=== PATIENT | male | born 1980 | race Caucasian/White ===

== ENCOUNTER 2020-01-26 11:10 | Day surgery (SDC) | payer MEDICARE, OTHER ==
[~2020-01-26 11:10] MED LIST: HYDACE5 PO; PRED20 PO
[2020-01-26] MEDS ORDERED: Prinivil10 MG PO (11:43)
[2020-01-26] MEDS ORDERED: RENVELA800 MG PO (11:44)
[2020-01-26] MEDS ORDERED: CARV25 PO (11:44)
--- NOTE | 2020-01-26 14:55 | NUR ---
HTN PT BP ELEVATED DURING VISIT. DR. GLEZ CALLED & NOTIFIED. CLONIDINE 0.2 MG ORDERED A ONE TIME DOSE. LABS ALSO ORDERED PER DR. GLEZ.
--- NOTE | 2020-01-26 16:26 | NUR ---
HTN UPDATE DR. GLEZ NOTIFIED THAT PT BP REMAINS ELEVATED. ASKED THIS RN TO ENCOURAGE PT TO MAKE HIS DIALYSIS APPOINTMENT TOMORROW AND EDUCATE HIM ON THE EFFECTS OF FLUID OVERLOAD.
--- NOTE | 2020-01-26 17:26 | NUR ---
DYSPNEA W/EXERTION PT C/O DYSPNEA WITH EXERTION AND STATES THAT HE DOES NOT HAVE DIALYSIS TOMORROW AND WILL BE UNABLE TO COME IN. PT ASKED IF HE FELT LIKE HE NEEDED TO STAY OVERNIGHT AN INPATIENT. PT RESPONDED "NO". PT THEN ASKED IF IT WAS POSSIBLE TO BE DIALIZED TONIGHT WHILE HE WAS HERE. THIS RN EXPLAINED THAT HE MUST BE AN INPATIENT TO DO THAT. PT THEN ASKED ABOUT O2 AT NIGHT. THIS RN ASKED PT TO ELABORATE, PT STATED THAT "IT IS HARD TO SLEEP LYING DOWN". THIS RN AGAIN ASKED THE PT IF HE FELT THAT HE NEED TO STAY OVERNIGHT. PT REPLIED STATING "ON NO, I WILL NOT STAY OVERNIGHT". THIS RN EDUCATED PT TO CALL 911 OR RETURN TO ER IF HIS BREATHING GETS WORSE. PT STATED "I WILL NOT COME INTO THE ER". PT THEN EDUCATED ON THE IMPORTANCE OF SEEKING HELP IF UNABLE TO BREATHE AND THE IMPORTANCE OF GOING TO DIALYSIS ON THURSDAY. DR. GLEZ NOTIFIED AND ORDERED 60MG OF LASIX.
--- NOTE | 2020-01-26 18:35 | NUR ---
PT DISCHARGED. PT VOIDED PRIOR TO DC AFTER LASIX INJECTION. PT STATES BREATHING IS IMPROVED. ESCORTED OUT BY AIDE.
== END 2020-01-26 18:35 | disposition home or self-care (01) ==
LOC: TRN 11:10 → MEDS 18:35 → EDSTATUS 01-27 13:33
PROVIDERS: Internal Medicine
PROC: 30233N1 Transfusion of Nonautologous Red Blood Cells into Peripheral Vein, Percutaneous Approach (ICD-10-PCS; principal; 2020-01-26)
DX: I12.0 Hypertensive chronic kidney disease with stage 5 chronic kidney disease or end stage renal disease (principal); N18.6 End stage renal disease; D63.1 Anemia in chronic kidney disease; A50.02 Early congenital syphilitic osteochondropathy; F17.220 Nicotine dependence, chewing tobacco, uncomplicated; Z99.2 Dependence on renal dialysis; Z79.899 Other long term (current) drug therapy
CPT/HCPCS: 36415; 36430; 82607; 82746; 86850; 86900; 86901; 86923; J1940; J7050; P9016

== ENCOUNTER 2020-02-14 00:40 | Inpatient (IN) | payer MEDICARE, OTHER ==
[~2020-02-14] VITALS: Ht 182.9 cm; Wt 74.7 kg
[~2020-02-14 00:40] MED LIST changes: +CARV25 PO; +Prinivil10 MG PO; +RENVELA800 MG PO
[2020-02-14 01:18] LABS: BASOPHILS ABSOLUTE AUTO 0.06 K/mm3 (0.00-0.23); BASOPHILS PERCENT AUTO 0 % (0-2); EOSINOPHILS ABSOLUTE AUTO 0.13 K/mm3 (0.00-0.68); EOSINOPHILS PERCENT AUTO 1 % (0-6); Hematocrit 30.5 % (37.0-53.0); Hemoglobin 9.7 g/dL (13.5-17.5); IMMATURE GRAN ABSOLUTE AUTO 0.15 K/mm3 (0.00-0.10); IMMATURE GRAN PERCENT AUTO 1 % (0-1); LYMPHOCYTES ABSOLUTE AUTO 0.49 K/mm3 (0.84-5.20); LYMPHOCYTES PERCENT AUTO 3 % (21-46); MONOCYTES ABSOLUTE AUTO 1.21 K/mm3 (0.16-1.47); MONOCYTES PERCENT AUTO 6 % (4-13); Mean Corpuscular HGB Conc 31.8 g/dL (31.5-36.5); Mean Corpuscular Volume 94 fL (80-100); Mean Platelet Volume 10.5 fL (9.1-12.4); NEUTROPHILS ABSOLUTE AUTO 17.48 K/mm3 (1.96-9.15); NEUTROPHILS PERCENT AUTO 90 % (41-73); Platelet Count 189 K/mm3 (150-400); RDW Coefficient Variation 16.1 % (11.7-14.2); RDW Standard Deviation 55.8 fL (35.1-46.3); Red Blood Cell Count 3.23 M/mm3 (4.30-5.90); White Blood Cell Count 19.52 K/mm3 (4.00-11.30)
[2020-02-14 01:35] LABS: Troponin I 0.142 ng/mL (0.000-0.040)
[2020-02-14 01:44] LABS: Albumin, Blood 2.8 g/dL (3.4-5.0); Albumin/Globulin Ratio 0.9 (0.8-1.8); Bilirubin, Total 0.6 mg/dL (0.1-1.0); Calcium, Blood 8.7 mg/dL (8.5-10.1); Creatinine, Blood 11.1 mg/dL (0.60-1.20); Potassium, Blood 5.5 mmol/L (3.5-5.5); Total Protein, Blood 5.8 g/dL (6.4-8.2)
[2020-02-14 02:19] LABS: Influenza A, PCR Negative (NEGATIVE); Influenza B, PCR Negative (NEGATIVE); Resp Syncytial Virus, PCR Negative (NEGATIVE); SARS-Cov-2 (COVID-19) PCR, MMC Negative (NEGATIVE)
--- NOTE | 2020-02-14 05:43 | NUR ---
0525 PT ADMITTED TO ROOM 355 PER CART FROM ER; REPORT RECEIVED FROM TJ AVALOS, VIA ER.
[2020-02-14 09:22] LABS: BASOPHILS ABSOLUTE AUTO 0.06 K/mm3 (0.00-0.23); BASOPHILS PERCENT AUTO 0 % (0-2); EOSINOPHILS PERCENT AUTO 1 % (0-6); Hematocrit 26.1 % (37.0-53.0); Hemoglobin 8.2 g/dL (13.5-17.5); IMMATURE GRAN ABSOLUTE AUTO 0.11 K/mm3 (0.00-0.10); IMMATURE GRAN PERCENT AUTO 1 % (0-1); LYMPHOCYTES ABSOLUTE AUTO 0.88 K/mm3 (0.84-5.20); LYMPHOCYTES PERCENT AUTO 6 % (21-46); MONOCYTES ABSOLUTE AUTO 0.37 K/mm3 (0.16-1.47); MONOCYTES PERCENT AUTO 2 % (4-13); Mean Corpuscular HGB 29.8 pg (26.0-34.0); Mean Corpuscular HGB Conc 31.4 g/dL (31.5-36.5); Mean Corpuscular Volume 95 fL (80-100); Mean Platelet Volume 10.7 fL (9.1-12.4); NEUTROPHILS ABSOLUTE AUTO 14.04 K/mm3 (1.96-9.15); NEUTROPHILS PERCENT AUTO 90 % (41-73); Platelet Count 130 K/mm3 (150-400); RDW Coefficient Variation 16.3 % (11.7-14.2); RDW Standard Deviation 56.5 fL (35.1-46.3); Red Blood Cell Count 2.75 M/mm3 (4.30-5.90); White Blood Cell Count 15.66 K/mm3 (4.00-11.30)
--- NOTE | 2020-02-14 09:49 | NUR ---
echocardiogram complete
[2020-02-14 09:50] LABS: Calcium, Blood 8.2 mg/dL (8.5-10.1); Potassium, Blood 5.4 mmol/L (3.5-5.5)
[2020-02-14 09:54] LABS: Bun/Creatinine Ratio 5.8 (12.0-20.0); Creatinine, Blood 12.3 mg/dL (0.60-1.20)
--- NOTE | 2020-02-14 12:56 | NUR ---
BACK FROM DIALYSIS
[2020-02-14] MEDS ORDERED: FURO80 PO (13:55)
[2020-02-14] MEDS ORDERED: Catapres-Tts 21 EACH TOP (13:56)
[2020-02-14] MEDS ORDERED: NIFE60ER PO (13:56)
[2020-02-14] MEDS ORDERED: AMLO10 PO (13:56)
[2020-02-14 13:59] LABS: Vancomycin, Random 9.5 ug/mL
--- NOTE | 2020-02-14 15:08 | NUR ---
ALERT. ORIENTED. HAD DIALYSIS TODAY. MEDICATED FOR PAIN WITH FAIR RESULTS. POOR APPETITE. APPEARS TO BE NOT ALWAYS COMPLIANT WITH MEDICAL REGIME. TELE. TM
--- NOTE | 2020-02-14 16:38 | NUR ---
AWARE OF MEDS RECONCILLED.
--- NOTE | 2020-02-14 19:20 | NUR ---
ASSUMED CARE RECEIVED REPORT FROM TJ DELEON. ASSUMED CARE OF PT. RESTING COMFORTABLY, NO S/S ACUTE DISTRESS NOTED. DENIES NEEDS. CALL LIGHT, POSSESSIONS IN REACH. WCTM.
[2020-02-15 05:25] LABS: BASOPHILS ABSOLUTE AUTO 0.05 K/mm3 (0.00-0.23); BASOPHILS PERCENT AUTO 0 % (0-2); EOSINOPHILS ABSOLUTE AUTO 1.08 K/mm3 (0.00-0.68); EOSINOPHILS PERCENT AUTO 10 % (0-6); Hemoglobin 8.2 g/dL (13.5-17.5); IMMATURE GRAN ABSOLUTE AUTO 0.05 K/mm3 (0.00-0.10); IMMATURE GRAN PERCENT AUTO 0 % (0-1); LYMPHOCYTES ABSOLUTE AUTO 0.41 K/mm3 (0.84-5.20); LYMPHOCYTES PERCENT AUTO 4 % (21-46); MONOCYTES ABSOLUTE AUTO 0.71 K/mm3 (0.16-1.47); MONOCYTES PERCENT AUTO 6 % (4-13); Mean Corpuscular HGB Conc 31.5 g/dL (31.5-36.5); Mean Corpuscular Volume 95 fL (80-100); Mean Platelet Volume 10.8 fL (9.1-12.4); NEUTROPHILS ABSOLUTE AUTO 9.06 K/mm3 (1.96-9.15); NEUTROPHILS PERCENT AUTO 80 % (41-73); Platelet Count 112 K/mm3 (150-400); RDW Coefficient Variation 16.1 % (11.7-14.2); RDW Standard Deviation 55.5 fL (35.1-46.3); Red Blood Cell Count 2.73 M/mm3 (4.30-5.90); White Blood Cell Count 11.36 K/mm3 (4.00-11.30)
[2020-02-15 06:17] LABS: Albumin, Blood 2.1 g/dL (3.4-5.0); Anion Gap 6 mmol/L (6-16); Blood Urea Nitrogen 52 mg/dL (8-24); Bun/Creatinine Ratio 5.9 (12.0-20.0); CO2, Blood 29 mmol/L (21-32); Calcium, Blood 7.9 mg/dL (8.5-10.1); Chloride, Blood 101 mmol/L (98-108); Creatinine, Blood 8.85 mg/dL (0.60-1.20); Glomerular Filtration Rate 7 (60-); Glucose, Blood 88 mg/dL (70-99); Phosphorus, Blood 6.2 mg/dL (2.5-4.9); Potassium, Blood 5.2 mmol/L (3.5-5.5); Sodium, Blood 136 mmol/L (136-145)
--- NOTE | 2020-02-15 07:08 | NUR ---
PER OK TO PUT IN CONSULT FOR IS OFF.
--- NOTE | 2020-02-15 07:15 | NUR ---
SHIFT SUMMARY PT ASLEEP, NO S/S ACUTE DISTRESS NOTED WAS MONITORED EVERY 1-2 HOURS WITH NEEDS MET. VS REVIEWED, 02 SATS STABLE. PT MEDICATED X1 FOR PAIN WITH MEDS PER EMAR, EFFECTIVE, MEDICATED FOR ANXIETY WELL. PT ENCOURAGED TO MAINTAIN POSITION OF COMFORT TO EASE BREATHING, INDICATED UNDERSTANDING. DENIES NEEDS AT THIS TIME, CALL LIGHT, POSSESSIONS IN REACH, BED IN LOW POSITION. REPORT GIVEN TO TJ DELEON.
--- NOTE | 2020-02-15 08:46 | NUR ---
PATIENT REQUEST STOOL SOFTENER. PER COLACE 100 MG BID
[2020-02-15 13:30] LABS: Vancomycin, Random 16.4 ug/mL
--- NOTE | 2020-02-15 18:20 | NUR ---
ALERT. ORIENTED. HAD PERMACATH TAKEN OUT THIS AFTERNOON BY . PATIENT GIVEN PAIN AND ANTIANXIETY MEDS PRIOR. SMALL PRESSURE DRESSING TO RT C.W. WITH NO OBVIOUS SIGNS OF BLEEDING. PATIENT CONSIDERING NOT GETTING PERMACATH REPLACEMENT "TIRED OF IT." PERMACATH TO BE PUT IN BY ON THURSDAY WITH PATIENT AWARE. TELE ON. UNLABORED RESPIRATIONS. INDEPENDENT IN ROOM. [facility]
[2020-02-16 04:45] LABS: BASOPHILS ABSOLUTE AUTO 0.03 K/mm3 (0.00-0.23); BASOPHILS PERCENT AUTO 0 % (0-2); EOSINOPHILS ABSOLUTE AUTO 1.34 K/mm3 (0.00-0.68); EOSINOPHILS PERCENT AUTO 16 % (0-6); Hematocrit 24.1 % (37.0-53.0); Hemoglobin 7.5 g/dL (13.5-17.5); IMMATURE GRAN ABSOLUTE AUTO 0.04 K/mm3 (0.00-0.10); IMMATURE GRAN PERCENT AUTO 1 % (0-1); LYMPHOCYTES PERCENT AUTO 12 % (21-46); MONOCYTES PERCENT AUTO 10 % (4-13); Mean Corpuscular HGB 29.6 pg (26.0-34.0); Mean Corpuscular HGB Conc 31.1 g/dL (31.5-36.5); Mean Corpuscular Volume 95 fL (80-100); Mean Platelet Volume 10.7 fL (9.1-12.4); NEUTROPHILS ABSOLUTE AUTO 5.09 K/mm3 (1.96-9.15); NEUTROPHILS PERCENT AUTO 61 % (41-73); Platelet Count 132 K/mm3 (150-400); RDW Coefficient Variation 15.8 % (11.7-14.2); RDW Standard Deviation 55.8 fL (35.1-46.3); Red Blood Cell Count 2.53 M/mm3 (4.30-5.90)
[2020-02-16 05:17] LABS: Magnesium, Blood 2.2 mg/dL (1.6-2.4)
[2020-02-16 05:37] LABS: Albumin, Blood 1.9 g/dL (3.4-5.0); Anion Gap 4 mmol/L (6-16); Blood Urea Nitrogen 49 mg/dL (8-24); Bun/Creatinine Ratio 5.9 (12.0-20.0); CO2, Blood 33 mmol/L (21-32); Calcium, Blood 7.9 mg/dL (8.5-10.1); Chloride, Blood 102 mmol/L (98-108); Creatinine, Blood 8.26 mg/dL (0.60-1.20); Glomerular Filtration Rate 8 (60-); Glucose, Blood 91 mg/dL (70-99); Phosphorus, Blood 6.3 mg/dL (2.5-4.9); Potassium, Blood 4.7 mmol/L (3.5-5.5); Sodium, Blood 139 mmol/L (136-145)
--- NOTE | 2020-02-16 06:55 | NUR ---
DEER FARMER SUMMARY Patient quiet in room all night. Appeared to sleep well with only minimal complaints of discomfort that he did not want to be medicated for. Patient was feeling anxious at HS and requested xanax which appeared to work well. right chest incision site clean dry and intact with tegaderm covering original gauze. Patient up ad marla in room
[2020-02-16 07:39] LABS: Vancomycin, Random 18.7 ug/mL
--- NOTE | 2020-02-16 11:13 | NUR ---
Echocardiogram performed.
[2020-02-16 14:31] LABS: Vancomycin, Random 18.1 ug/mL
--- NOTE | 2020-02-16 17:57 | NUR ---
HYPERTENSION BLOOD PRESSURE HAS BEEN ELEVATED TODAY. BROUGHT IT UP TO DR. VALVERDE'S ATTENTION, RECEIVED T.O. FOR 25 MG HYDRALIZINE PO Q6 PRN FOR SBP GREATER THAN 150 MMHG. ORDER UPDATED.
--- NOTE | 2020-02-16 19:08 | NUR ---
Shift Summary A/Ox4, independent in room and ambulatory in hallway. Patient went for a walk today. C/O 08/30 head/neck pain, medicated x 1 for this. Blood pressure has been elevated this shift, medicate per EMAR and reported to oncoming RN. Nonproductive cough, sputum cx still needed. Plan for permacath placement on Thursday per Dr. Ibrahim, patient ok to have PO intake until then.
--- NOTE | 2020-02-17 02:32 | NUR ---
0100 REPORT RECEIVED FROM SHENG BRANCH RN; PT RESTING COMFORTABLY IN BED.
--- NOTE | 2020-02-17 03:39 | NUR ---
SHIFT SUMMARY: 39 Y/O MALE RESTED COMFORTABLY ALL SHIFT; DENIES PAIN OR NAUSEA; HAPPY AND COOPERATIVE; PT HAD HYPERTENSIVE EPISODE WITH APRESSOLINE 25MG PO GIVEN; PTS RIGHT UPPER CHEST DRESSING REMOVED AND OPEN TO AIR WITHOUT S/S INFECTIONP; CONTACT ISOLATION MAINTAINED; BED LOW POSITION WITH CALL LIGHT AT SIDE; PT TENTATIVELY SCHEDULED FOR NEW DIALYSIS PORT PLACEMENT ON SATURDAY 02/17.
--- NOTE | 2020-02-17 04:31 | NUR ---
BP 189/124; DR JACKLYN PRINCE.
[2020-02-17 04:58] LABS: Hematocrit 24.8 % (37.0-53.0); Hemoglobin 7.7 g/dL (13.5-17.5)
[2020-02-17 05:38] LABS: Magnesium, Blood 2.4 mg/dL (1.6-2.4)
[2020-02-17 05:40] LABS: Albumin, Blood 2.1 g/dL (3.4-5.0); Anion Gap 9 mmol/L (6-16); Blood Urea Nitrogen 69 mg/dL (8-24); Bun/Creatinine Ratio 6.2 (12.0-20.0); CO2, Blood 28 mmol/L (21-32); Chloride, Blood 103 mmol/L (98-108); Glomerular Filtration Rate 5 (60-); Glucose, Blood 108 mg/dL (70-99); Phosphorus, Blood 6.5 mg/dL (2.5-4.9); Potassium, Blood 4.8 mmol/L (3.5-5.5); Sodium, Blood 140 mmol/L (136-145)
[2020-02-17] MEDS ORDERED: Ativan1 MG PO (10:54)
--- NOTE | 2020-02-17 13:27 | NUR ---
PT BP WAS RECHECKED AFTER GIVEN MORNING CARDIAC MEDS. PT'S SPB WAS FOUND TO BE HIGHER THAN 150 SO HYDRALAZINE WAS GIVEN. WILL RECHECK BP IN AN HOUR.
[2020-02-17 16:48] LABS: Vancomycin, Random 15.9 ug/mL
--- NOTE | 2020-02-17 18:01 | NUR ---
SHIFT SUMMARY PT A/O X4, IND IN THE ROOM, AND COOPERATIVE BUT WITHDRAWN. PT HAS BEEN HYPERTENSIVE TODAY, SEE CHART. GIVEN PRN HYDRALAZINE ONCE WITH GOOD EFFECT. BP IS CURRENTLY STABLE. PROCEDURE TOMORROW FOR MEDIPORT PLACEMENT; NPO AT MIDNIGHT. VSS; CURRENTLY RESTING IN ROOM WITH CALL LIGHT IN REACH.
--- NOTE | 2020-02-18 03:46 | NUR ---
SHIFT SUMMARY: 39 Y/O MALE NPO SINCE MIDNIGHT FOR SURGICAL INTERVENTON REGARDING DIALYSIS PORT PLACEMENT; DENIES PAIN OR NAUSEA; HAPPY AND COOPERATIVE; BED LOW POSITION WITH CALL LIGHT AT SIDE.
[2020-02-18 05:13] LABS: Hematocrit 24.6 % (37.0-53.0); Hemoglobin 7.8 g/dL (13.5-17.5)
[2020-02-18 05:49] LABS: Magnesium, Blood 2.5 mg/dL (1.6-2.4)
[2020-02-18 05:54] LABS: Albumin, Blood 2.2 g/dL (3.4-5.0); Anion Gap 11 mmol/L (6-16); Blood Urea Nitrogen 82 mg/dL (8-24); Bun/Creatinine Ratio 6.4 (12.0-20.0); CO2, Blood 25 mmol/L (21-32); Calcium, Blood 8.3 mg/dL (8.5-10.1); Chloride, Blood 104 mmol/L (98-108); Glomerular Filtration Rate 5 (60-); Glucose, Blood 86 mg/dL (70-99); Phosphorus, Blood 6.6 mg/dL (2.5-4.9); Potassium, Blood 5.4 mmol/L (3.5-5.5); Sodium, Blood 140 mmol/L (136-145)
--- NOTE | 2020-02-18 10:37 | NUR ---
TOOK PATIENT DIRECTLY TO DIALYSIS DEPARTMENT. AIDEN TRANSFER WITHOUT DIFFICULTY.
[2020-02-18 15:09] LABS: Vancomycin, Random 18.5 ug/mL
--- NOTE | 2020-02-18 18:43 | NUR ---
SHIFT SUMMARY TRAVIS WENT TO OR THIS MORNING AND HAD L CHEST WALL PERMACATH PLACED AND THEN WENT STRAIGHT TO HD. SOME PAIN AT INSERTION SITE, NORCO HELPED RELIEVE PAIN. HIGH BP PRIOR TO GOING TO OR, MORNING BP MEDS HELPED CONSIDERABLY LOWER IT TO 150S SYSTOLIC (FROM 180/130). INDEP IN ROOM. HAD BM THIS SHIFT. TOOK MEDS PRESCRIBED. CALL LIGHT IN REACH, [facility]
--- NOTE | 2020-02-18 22:15 | NUR ---
2144 PT NOTED HAVE ELEVATED BP 174/114 2145 LABETALOL 5MG IVP GIVEN. 2150 BP 164/103 2206 BP 160/106; DENIES PAIN OR NAUSEA.
--- NOTE | 2020-02-19 03:21 | NUR ---
SHIFT SUMMARY: 39 Y/O MALE RESTED COMFORTABLY ALL SHIFT; PT C/O LEFT UPPER CHEST DIALYSIS PORT INSERTION SITE PAIN RATED 8/10 WITH NORCO 5/325MG PO X1 GIVEN TWICE WITH GOOD RELIEF FELT; PT LEFT UPPER CHEST DRESSING HAS OLD DRIED RED DRAINAGE NOTED UNDER TEGADER; PTS RIGHT UPPER CHEST OLD MEDIPORT SITE SCABBED OVER AND WELL APPROXIMATED; HAPPY AND COOPERATIVE; PT SCHEDULED FOR DIALYSIS TODAY; ALERT AND ORIENTED X 4; UP PER SELF THIS SHIFT TO AMBULATE AROUND HALLS OF FLOOR WITH GAIT SLOW AND STEADY; PT EAGER TO RETURN HOME; BED LOW POSITION WITH CALL LIGHT AT SIDE.
--- NOTE | 2020-02-19 03:29 | NUR ---
SHIFT SUMMARY: 73 Y/O OBESE FEMALE RESTED COMFORTABLY ALL SHIFT; PTS LEFT FOOT SHANNON WRAP DRESSING DRY AND INTACT; UP AD KENISHA PER SELF TO BATHROOM AND BACK VIA WALKER WITHOUT DIFFICULTY; PT LEGALLY BLIND AND REQUIRES ASSISTANCE WITH ALL MEDS AND INSULIN; PT PENDING DISCHARGE TO [facility]; HAPPY AND COOPERATIVE; ALERT AND ORIENTED X 4; BED LOW POSITION WITH CALL LIGHT AT SIDE.
[2020-02-19 05:39] LABS: Magnesium, Blood 2.3 mg/dL (1.6-2.4)
[2020-02-19 05:46] LABS: Albumin, Blood 2.2 g/dL (3.4-5.0); Anion Gap 8 mmol/L (6-16); Blood Urea Nitrogen 67 mg/dL (8-24); Bun/Creatinine Ratio 6.6 (12.0-20.0); CO2, Blood 28 mmol/L (21-32); Calcium, Blood 8.7 mg/dL (8.5-10.1); Chloride, Blood 102 mmol/L (98-108); Glomerular Filtration Rate 6 (60-); Glucose, Blood 85 mg/dL (70-99); Phosphorus, Blood 6.9 mg/dL (2.5-4.9); Potassium, Blood 5.3 mmol/L (3.5-5.5); Sodium, Blood 138 mmol/L (136-145)
[2020-02-19 12:36] LABS: Vancomycin, Random 12.1 ug/mL
--- NOTE | 2020-02-19 18:43 | NUR ---
SHIFT SUMMARY TRAVIS DENIED PAIN THIS SHIFT. HAD HD THIS MORNING THROUGH NEW HD CATH. HIGH BP NOTED AT FIRST VS CHECK IN AM BUT MORNING BP MEDS WITH HD HELPED QUITE A BIT. GOT VERY ANXIOUS IN AFTERNOON AT ALL THE INTERRUPTIONS, ANGRY WITH STAFF. NOTE WRITTEN ON DOOR TO NOT HAVE ANY STAFF ENTER FOR A FEW HOURS, THIS SEEMED TO HELP. INDEP IN ROOM. CALL LIGHT IN REACH, REPORT GIVEN TO NIGHT NURSE
--- NOTE | 2020-02-20 04:03 | NUR ---
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 Vanco trough yesterday was 12 & 1000 mg given yesterday per pharmacy. DR Ogden called & asked for echo results & to discuss trough & dose given. PT medicated x 2 woth 0.25 mg xanax for anxiety & norco 1 to tx gen pain
[2020-02-20 05:20] LABS: Hematocrit 24.1 % (37.0-53.0); Hemoglobin 7.9 g/dL (13.5-17.5)
[2020-02-20 05:34] LABS: Magnesium, Blood 2.2 mg/dL (1.6-2.4)
[2020-02-20 05:35] LABS: Vancomycin, Random 31.5 ug/mL
[2020-02-20 05:43] LABS: Albumin, Blood 2.3 g/dL (3.4-5.0); Anion Gap 6 mmol/L (6-16); Blood Urea Nitrogen 48 mg/dL (8-24); CO2, Blood 31 mmol/L (21-32); Calcium, Blood 8.2 mg/dL (8.5-10.1); Chloride, Blood 99 mmol/L (98-108); Glucose, Blood 87 mg/dL (70-99); Phosphorus, Blood 6.4 mg/dL (2.5-4.9); Potassium, Blood 4.7 mmol/L (3.5-5.5); Sodium, Blood 136 mmol/L (136-145)
[2020-02-20 05:44] LABS: Bun/Creatinine Ratio 5.9 (12.0-20.0); Creatinine, Blood 8.14 mg/dL (0.60-1.20); Glomerular Filtration Rate 8 (60-)
[2020-02-20 08:08] LABS: ANTIGLOMERULAR BM AB 4 units (0-20)
[2020-02-20] MEDS ORDERED: PANT40 PO (11:46)
[2020-02-20] MEDS ORDERED: VISBIOME PROBIOTIC PO (11:47)
[2020-02-20] MEDS ORDERED: Vancomycin1 GM/2501 IV (11:48)
--- NOTE | 2020-02-20 13:32 | NUR ---
SUMMARY/DISCHARGE PT DISCHARGED TO HOME, PT VERBALIZED UNDERSTANDING OF DISCHARGE INSTRUCTIONS REGARDING MEDS AND FOLLOW UP, PT REPORTS HE HAS A NEW PATIENT APPOINTMENT WITH [facility] THE , CARE MANAGEMENT UNABLE TO GET HIM A SOONER APPOINTMENT, PT TO GET IV VANCO WITH DIALYSIS STARTING TOMORROW, PT CAN USE [facility] FOR TRANSPORT TO APPOINTMENTS, PT DECLINED A RIDE HOME WHEN OFFERED, PT DECLINED A WHEELCHAIR WHEN OFFERED, PT ABLE TO AMBULATE SAFELY TO THE ELEVATOR
[2020-02-22 12:10] LABS: ATYPICAL PANCA <1:20 titer (Neg:<1:20); CYTOPLASMIC (C-ANCA) 1:40 titer (Neg:<1:20); PERINUCLEAR (P-ANCA) <1:20 titer (Neg:<1:20)
== END 2020-02-20 13:20 | disposition home or self-care (01) | DRG 314 ==
LOC: ER 00:40 → MEDS 03:35 → ENPENDDIS 02-20 11:30 → MEDS 02-20 13:20
PROVIDERS: Emergency Medicine; Internal Medicine; Internal Medicine Nephrology; Pharmacist; ADMIT Internal Medicine
PROC: 05PYX3Z Removal of Infusion Device from Upper Vein, External Approach (ICD-10-PCS; principal; 2020-02-14)
PROC: 5A1D70Z Performance of Urinary Filtration, Intermittent, Less than 6 Hours Per Day (ICD-10-PCS; 2020-02-14)
PROC: 5A1D70Z Performance of Urinary Filtration, Intermittent, Less than 6 Hours Per Day (ICD-10-PCS; 2020-02-15)
PROC: 0JH63XZ Insertion of Tunneled Vascular Access Device into Chest Subcutaneous Tissue and Fascia, Percutaneous Approach (ICD-10-PCS; 2020-02-18)
PROC: 02HV33Z Insertion of Infusion Device into Superior Vena Cava, Percutaneous Approach (ICD-10-PCS; 2020-02-18)
PROC: 5A1D70Z Performance of Urinary Filtration, Intermittent, Less than 6 Hours Per Day (ICD-10-PCS; 2020-02-18)
PROC: 5A1D70Z Performance of Urinary Filtration, Intermittent, Less than 6 Hours Per Day (ICD-10-PCS; 2020-02-19)
DX: T82.7XXA Infection and inflammatory reaction due to other cardiac and vascular devices, implants and grafts, initial encounter (principal); A41.02 Sepsis due to Methicillin resistant Staphylococcus aureus; J18.9 Pneumonia, unspecified organism; N18.6 End stage renal disease; M31.31 Wegener's granulomatosis with renal involvement; I50.20 Unspecified systolic (congestive) heart failure; Z20.828 Contact with and (suspected) exposure to other viral communicable diseases; E87.70 Fluid overload, unspecified; R79.89 Other specified abnormal findings of blood chemistry; G47.00 Insomnia, unspecified; F41.9 Anxiety disorder, unspecified; D63.1 Anemia in chronic kidney disease; I11.0 Hypertensive heart disease with heart failure; E87.5 Hyperkalemia; E83.39 Other disorders of phosphorus metabolism; Z99.2 Dependence on renal dialysis; Z79.899 Other long term (current) drug therapy; Z86.718 Personal history of other venous thrombosis and embolism
CPT/HCPCS: 0241U; 36415; 36589; 71045; 80048; 80053; 80069; 80202; 83516; 83605; 83735; 83880; 84484; 85014; 85018; 85025; 86256; 87040; 87077; 87147; 87186; 93005; 93010; 93306; 93308; 94640; 94760; 96365; 96367; 96372-59; 99285-25; A9270; A9270-GY; C1752; C1894; J0692; J0696; J0881; J1644; J1885; J2250; J2405; J2704; J3010; J3370; J7030; J7050

== ENCOUNTER 2020-04-07 19:07 | Emergency (ER) | payer MEDICARE, OTHER ==
[~2020-04-07] VITALS: Ht 182.9 cm; Wt 74.8 kg
[~2020-04-07 19:07] MED LIST changes: +AMLO10 PO; +Ativan1 MG PO; +Catapres-Tts 21 EACH TOP; +FURO80 PO; +HYDMOR2 PO; +NIFE60ER PO; +PANT40 PO; +VISBIOME PROBIOTIC PO; +Vancomycin1 GM/2501 IV
[2020-04-07 19:46] LABS: BASOPHILS ABSOLUTE AUTO 0.07 K/mm3 (0.00-0.23); BASOPHILS PERCENT AUTO 1 % (0-2); EOSINOPHILS ABSOLUTE AUTO 1.32 K/mm3 (0.00-0.68); EOSINOPHILS PERCENT AUTO 14 % (0-6); Hematocrit 27.5 % (37.0-53.0); Hemoglobin 8.9 g/dL (13.5-17.5); IMMATURE GRAN ABSOLUTE AUTO 0.03 K/mm3 (0.00-0.10); IMMATURE GRAN PERCENT AUTO 0 % (0-1); LYMPHOCYTES ABSOLUTE AUTO 1.33 K/mm3 (0.84-5.20); LYMPHOCYTES PERCENT AUTO 14 % (21-46); MONOCYTES ABSOLUTE AUTO 0.77 K/mm3 (0.16-1.47); MONOCYTES PERCENT AUTO 8 % (4-13); Mean Corpuscular HGB 31.6 pg (26.0-34.0); Mean Corpuscular HGB Conc 32.4 g/dL (31.5-36.5); Mean Corpuscular Volume 98 fL (80-100); Mean Platelet Volume 9.7 fL (9.1-12.4); NEUTROPHILS ABSOLUTE AUTO 5.89 K/mm3 (1.96-9.15); NEUTROPHILS PERCENT AUTO 63 % (41-73); Platelet Count 231 K/mm3 (150-400); RDW Coefficient Variation 14.9 % (11.7-14.2); RDW Standard Deviation 53.4 fL (35.1-46.3); Red Blood Cell Count 2.82 M/mm3 (4.30-5.90); White Blood Cell Count 9.41 K/mm3 (4.00-11.30)
[2020-04-07 20:06] LABS: Albumin, Blood 3.3 g/dL (3.4-5.0); Albumin/Globulin Ratio 1.1 (0.8-1.8); Bilirubin, Total 0.5 mg/dL (0.1-1.0); Bun/Creatinine Ratio 4.8 (12.0-20.0); Globulin, Blood 2.9 g/dL (2.2-4.0); Potassium, Blood 4.8 mmol/L (3.5-5.5); Total Protein, Blood 6.2 g/dL (6.4-8.2); Troponin I 0.052 ng/mL (0.000-0.040)
[2020-04-07] MEDS ORDERED: Nitrostat0.4 MG SL (21:28)
[2020-04-07] MEDS ORDERED: HYDR1TAB94 PO (21:28)
[2020-09-30] MEDS ORDERED: CLON.1 PO (15:40)
[2020-10-10] MEDS ORDERED: CLINGEL TOP (10:35)
[2020-10-10] MEDS ORDERED: OXYC10TA19 PO (10:36)
[2020-10-10] MEDS ORDERED: DICLOFENAC SOD100 G1 TOP (10:36)
== END 2020-04-07 21:30 | disposition home or self-care (01) ==
LOC: ER 19:07
PROVIDERS: Physician Assistant
DX: I12.9 Hypertensive chronic kidney disease with stage 1 through stage 4 chronic kidney disease, or unspecified chronic kidney disease (principal); N18.6 End stage renal disease; K21.9 Gastro-esophageal reflux disease without esophagitis; Z79.899 Other long term (current) drug therapy
CPT/HCPCS: 36415; 71045; 80053; 83690; 84484; 85025; 93005; 93010; 96374; 96375; 99285-25; A9270; J1170; J2405

== ENCOUNTER 2020-04-11 13:05 | Inpatient (IN) | payer MEDICARE, OTHER ==
[~2020-04-11] VITALS: Ht 182.9 cm; Wt 76.2 kg
[~2020-04-11 13:05] MED LIST changes: +HYDR1TAB94 PO; +Nitrostat0.4 MG SL
[2020-04-11] MEDS ORDERED: CLON1 PO (13:26)
[2020-04-11 14:51] LABS: BASOPHILS ABSOLUTE AUTO 0.04 K/mm3 (0.00-0.23); BASOPHILS PERCENT AUTO 1 % (0-2); EOSINOPHILS PERCENT AUTO 15 % (0-6); Hematocrit 25.9 % (37.0-53.0); Hemoglobin 8.1 g/dL (13.5-17.5); IMMATURE GRAN ABSOLUTE AUTO 0.02 K/mm3 (0.00-0.10); IMMATURE GRAN PERCENT AUTO 0 % (0-1); LYMPHOCYTES ABSOLUTE AUTO 1.07 K/mm3 (0.84-5.20); LYMPHOCYTES PERCENT AUTO 13 % (21-46); MONOCYTES ABSOLUTE AUTO 0.59 K/mm3 (0.16-1.47); MONOCYTES PERCENT AUTO 7 % (4-13); Mean Corpuscular HGB 31.3 pg (26.0-34.0); Mean Corpuscular HGB Conc 31.3 g/dL (31.5-36.5); Mean Corpuscular Volume 100 fL (80-100); Mean Platelet Volume 9.4 fL (9.1-12.4); NEUTROPHILS ABSOLUTE AUTO 5.53 K/mm3 (1.96-9.15); NEUTROPHILS PERCENT AUTO 65 % (41-73); Platelet Count 201 K/mm3 (150-400); RDW Coefficient Variation 14.6 % (11.7-14.2); RDW Standard Deviation 53.3 fL (35.1-46.3); Red Blood Cell Count 2.59 M/mm3 (4.30-5.90); White Blood Cell Count 8.55 K/mm3 (4.00-11.30)
[2020-04-11 15:02] LABS: PCO2 Arterial 35.8 mmHg (35-45); PO2 Arterial 146 mmHg (80-100); pH Blood Arterial 7.55 (7.35-7.45)
--- NOTE | 2020-04-11 15:05 | NUR ---
PT BROUGHT TO HARD TILE SETTER FOR AN ELECTIVE AVF FISTULA FORMATION. DR ORLANDO PERFORMED L SIDED BRACHIAL PLEXUS NERVE BLOCK AND SEDATION WAS GIVEN (FENTANYL AND VERSED). PT BECAME ALTERED, THEN UNRESPONSIVE/ STARTED WITH AMBU BAG FOR AIR WAY PROTECTION. CONTINOUS CARDIAC MONITORING IN PLACE. PER DR ORLANDO, PT'S MEDICATIONS REVERSED WITH ROMAZICON AND NARCAN AND R.T. WAS NOTIFIED. ER PHYSICIAN NOTIFIED FOR INTUBATION. PT WAS INTUBATED WITH 7.5 FR ET TUBE 24 @ TEETH. ET TUBE POSITIONED CHECKED UNDER FLOURO. PT STARTED ON PROPOFOL GTT PER MD ORDER. PT TO ICU 2 FOR CONITUATION OF CARE. REPORT GIVEN TO TYRONE SANDOVAL RN. ELECTIVE PROCEDURE CANCELLED AT THIS TIME.
[2020-04-11 15:22] LABS: Albumin, Blood 2.9 g/dL (3.4-5.0); Bilirubin, Total 0.6 mg/dL (0.1-1.0); Bun/Creatinine Ratio 5.6 (12.0-20.0); Calcium, Blood 8.6 mg/dL (8.5-10.1); Creatinine, Blood 10.8 mg/dL (0.60-1.20); Potassium, Blood 5.6 mmol/L (3.5-5.5); Total Protein, Blood 5.9 g/dL (6.4-8.2)
[2020-04-11 15:34] LABS: Source, Urine Catheter
[2020-04-11 15:48] LABS: Appearance, Urine Hazy (Clear); Bilirubin, Urine Neg (Neg); Blood, Urine 3+ (Neg); Color, Urine Yellow (P-Yellow); Glucose Qualitative, Urine 1+ (Neg); Ketones, Urine Neg (Neg); Leukocyte Esterase, Urine Neg (Neg); Nitrite, Urine Neg (Neg); Protein, Urine 3+ (Neg); Urobilinogen, Urine NORM (Normal)
[2020-04-11 16:01] LABS: Amorphous Mod (0-Heavy); Bacteria Few /hpf; Squamous Epithelial Cells Rare /hpf (Few)
[2020-04-11 16:06] LABS: U Amphetamine Screen Not Detected; U Barbituate Screen Not Detected; U Benzodiazapine Screen DETECTED; U Buprenorphine Screen Not Detected; U Cannabinoids Screen Not Detected; U Cocaine Screen Not Detected; U Methadone Screen Not Detected; U Methamphetamine Screen Not Detected; U Opiates Screen DETECTED; U Oxycodone Screen Not Detected; U Phencyclidine Screen Not Detected; U Propoxyphene Screen Not Detected
--- NOTE | 2020-04-11 17:36 | NUR ---
SUMMARY RECEIVED PT FROM WIRING TECHNICIAN AT 1450. PT IS INTUBATED AND SEDATED WITH PROPOFOL. PT WENT TO WIRING TECHNICIAN FOR FISTULA PLACEMENT. PROCEDURE WAS NOT STARTED DUE TO PT NOT TOLERATING MEDS WELL AND ENDED UP INTUBATED. PLACED OGT AND ROBERTSON ON ARRIVAL. GREEN BILE FROM OGT TO LIS. PT HAS PERMACATH DIALYSIS PORT TO W. DR. GLEZ WAS CONSULTED. SHE FOLLOWS HIM OUTSIDE OF HOSPITAL. TOOK PT FOR CT OF HEAD AND CHEST. CXR DONE. PT WAS ABLE TO NOD YES TO SOME QUESTIONS. MOVES ALL EXTREMITIES WELL. REPAIRER SCREEN CRUSHER IN THE ROOM NOW TO START.
--- NOTE | 2020-04-11 19:55 | NUR ---
PT INTUBATED AND SEDATED. PT UNDERGOING DIALYSIS AT THIS TIME. DIALYSIS NURSE AT BEDSIDE.
--- NOTE | 2020-04-12 00:58 | NUR ---
SEDATION TURNED DOWN AND PT WAS ABLE TO WAKE UP, WRITE HIS NEEDS WITH PEN/PAPER, PARTICIPATE WITH CARE. TOOK PT OUT OF RESTRAINTS BRIEFLY SO HE COULD RUB HIS EYES AND NOSE. PT NEVER REACHED FOR TUBE.
[2020-04-12 03:22] LABS: Base Excess Venous 13.4 mmol/L; Bicarbonate Venous 36.1 mmol/L (24.0-30.0); PO2 Venous 109 mmHg (38-42); pH Blood Venous 7.55 (7.34-7.37)
[2020-04-12 03:37] LABS: BASOPHILS ABSOLUTE AUTO 0.04 K/mm3 (0.00-0.23); BASOPHILS PERCENT AUTO 1 % (0-2); EOSINOPHILS ABSOLUTE AUTO 1.03 K/mm3 (0.00-0.68); EOSINOPHILS PERCENT AUTO 16 % (0-6); Hematocrit 22.1 % (37.0-53.0); Hemoglobin 7.1 g/dL (13.5-17.5); IMMATURE GRAN ABSOLUTE AUTO 0.01 K/mm3 (0.00-0.10); IMMATURE GRAN PERCENT AUTO 0 % (0-1); LYMPHOCYTES PERCENT AUTO 21 % (21-46); MONOCYTES ABSOLUTE AUTO 0.58 K/mm3 (0.16-1.47); MONOCYTES PERCENT AUTO 9 % (4-13); Mean Corpuscular HGB 31.3 pg (26.0-34.0); Mean Corpuscular HGB Conc 32.1 g/dL (31.5-36.5); Mean Corpuscular Volume 97 fL (80-100); Mean Platelet Volume 9.8 fL (9.1-12.4); NEUTROPHILS ABSOLUTE AUTO 3.56 K/mm3 (1.96-9.15); NEUTROPHILS PERCENT AUTO 54 % (41-73); Platelet Count 141 K/mm3 (150-400); RDW Coefficient Variation 14.6 % (11.7-14.2); RDW Standard Deviation 51.8 fL (35.1-46.3); Red Blood Cell Count 2.27 M/mm3 (4.30-5.90); White Blood Cell Count 6.62 K/mm3 (4.00-11.30)
--- NOTE | 2020-04-12 03:55 | NUR ---
FULL BED BATH DONE. PT SLEPT THROUGH MAJORITY OF IT. PROPOFOL WAS AT 50MCG. CURRENTLY AT 30MCG FOR SEDATION VACATION. RT AWARE AND WHEN PT WAKES A LITTLE WILL BEGIN SBT.
[2020-04-12 03:56] LABS: Bun/Creatinine Ratio 4.6 (12.0-20.0); Calcium, Blood 8.4 mg/dL (8.5-10.1); Creatinine, Blood 7.53 mg/dL (0.60-1.20); Magnesium, Blood 2.2 mg/dL (1.6-2.4); Phosphorus, Blood 4.4 mg/dL (2.5-4.9); Potassium, Blood 3.9 mmol/L (3.5-5.5)
--- NOTE | 2020-04-12 05:07 | NUR ---
CALL PLACED TO DR SIMENTAL RE CRITICAL HIGH VBG PH OF 7.55. ORDERS RECEIVED: ONCE SBT IS DONE AND PT PASSES LEAVE ON SPONTANEOUS. IF PT FAILS TURN BACK TO AC SETTINGS AND TURN TV DOWN TO 400. RT AMADO ALCAZAR
--- NOTE | 2020-04-12 05:32 | NUR ---
PROPOFOL TURNED DOWN TO 10MCG. PT IS BEGINNING TO WAKE UP. NODDING HEAD TO QUESTIONS. TEDERA CALL PLACED TO RT AMADO TO BEGIN SBT
--- NOTE | 2020-04-12 06:23 | NUR ---
pt is fully awake, on spontaneous and doing well. Is having large amts of oral secretions but helps participate in suctioning. Requested to have sedation turned up some. so pt is currently on 15mcg. Closely monitoring pt to allow for moments out of restraints to participate in own care.
[2020-04-12 08:07] LABS: Percent Saturation 17.9 % (20.0-50.0)
--- NOTE | 2020-04-12 08:31 | NUR ---
PT WAS AWAKE AND ALERT ON VENTILATOR. ABLE TO WRITE NEEDS ON PAPER. PT GETTING AGITATED ABOUT ETT. HAD BEEN ON SPONTANEOUS SINCE WEAN TRIAL THIS AM. OFF SEDATION. TV CONSISTANTLY 300-500 WITH RESP RATE 12-14. CALLED DR. SIMENTAL WHO ORDERED PT TO BE EXTUBATED. PT EXTUBATED AT 0810 TO RA. TALKING AND MANAGING OWN SECRETIONS WELL. PT HAS PERMACATH TO [facility] FOR DIALYSIS. SHENG DONOR RECRUITER AT BEDSIDE NOW. NO SIGN OF DISTRESS.
--- NOTE | 2020-04-12 09:08 | NUR ---
PT WANTING TO GO HOME. NOT WILLING TO WAIT TO GET AN ORDER FROM THE DOCTOR TO DISCHARGE. REFUSING DIAYLYSIS TODAY. PT LEFT AMA. PT IS A/O X4, STEADY ON FEET AND AMBULATES OUT INDEP. IV'S REMOVED. DR. SIMENTAL AND DR. GLEZ MADE AWARE.
[2020-09-30] MEDS ORDERED: CLON.1 PO (15:40)
[2020-10-10] MEDS ORDERED: CLINGEL TOP (10:35)
[2020-10-10] MEDS ORDERED: OXYC10TA19 PO (10:36)
[2020-10-10] MEDS ORDERED: DICLOFENAC SOD100 G1 TOP (10:36)
== END 2020-04-12 09:08 | disposition left against medical advice (07) | DRG 208 ==
LOC: MHTC 13:05 → ICUE 14:56
PROVIDERS: Internal Medicine; Internal Medicine Pulmonary Disease; Radiology Diagnostic Radiology; ADMIT Physician Assistant
PROC: 0BH17EZ Insertion of Endotracheal Airway into Trachea, Via Natural or Artificial Opening (ICD-10-PCS; principal; 2020-04-11)
PROC: 5A1935Z Respiratory Ventilation, Less than 24 Consecutive Hours (ICD-10-PCS; 2020-04-11)
PROC: 5A1D70Z Performance of Urinary Filtration, Intermittent, Less than 6 Hours Per Day (ICD-10-PCS; 2020-04-11)
PROC: 3E0T3BZ Introduction of Anesthetic Agent into Peripheral Nerves and Plexi, Percutaneous Approach (ICD-10-PCS; 2020-04-11)
DX: J96.01 Acute respiratory failure with hypoxia (principal); N18.6 End stage renal disease; J81.0 Acute pulmonary edema; I12.0 Hypertensive chronic kidney disease with stage 5 chronic kidney disease or end stage renal disease; E87.70 Fluid overload, unspecified; D64.9 Anemia, unspecified; Z53.29 Procedure and treatment not carried out because of patient's decision for other reasons; Z99.2 Dependence on renal dialysis; Z79.899 Other long term (current) drug therapy; Z86.14 Personal history of Methicillin resistant Staphylococcus aureus infection; Z86.79 Personal history of other diseases of the circulatory system
CPT/HCPCS: 31500; 31720; 36415; 36600; 51702; 64415; 70450; 71045; 71250; 76937; 80048; 80053; 81001; 82330; 82607; 82746; 82803; 82947; 83540; 83550; 83605; 83615; 83735; 84100; 85007; 85025; 85027; 85610; 87040; 94002; 94003; 99152; 99153; A9270; J0330; J1644; J2250; J2310; J2704; J3010; J7030

== ENCOUNTER 2020-04-29 23:05 | Inpatient (IN) | payer MEDICARE, OTHER ==
[~2020-04-29] VITALS: Ht 182.9 cm; Wt 73.0 kg
[~2020-04-29 23:05] MED LIST changes: +CLON1 PO
[2020-04-29 23:42] LABS: BASOPHILS ABSOLUTE AUTO 0.08 K/mm3 (0.00-0.23); BASOPHILS PERCENT AUTO 1 % (0-2); EOSINOPHILS ABSOLUTE AUTO 1.96 K/mm3 (0.00-0.68); EOSINOPHILS PERCENT AUTO 15 % (0-6); Hematocrit 29.4 % (37.0-53.0); Hemoglobin 9.4 g/dL (13.5-17.5); IMMATURE GRAN ABSOLUTE AUTO 0.04 K/mm3 (0.00-0.10); IMMATURE GRAN PERCENT AUTO 0 % (0-1); LYMPHOCYTES ABSOLUTE AUTO 1.44 K/mm3 (0.84-5.20); LYMPHOCYTES PERCENT AUTO 11 % (21-46); MONOCYTES ABSOLUTE AUTO 0.81 K/mm3 (0.16-1.47); MONOCYTES PERCENT AUTO 6 % (4-13); Mean Corpuscular HGB 30.8 pg (26.0-34.0); Mean Corpuscular Volume 96 fL (80-100); Mean Platelet Volume 9.4 fL (9.1-12.4); NEUTROPHILS ABSOLUTE AUTO 8.65 K/mm3 (1.96-9.15); NEUTROPHILS PERCENT AUTO 67 % (41-73); Platelet Count 301 K/mm3 (150-400); RDW Coefficient Variation 14.2 % (11.7-14.2); RDW Standard Deviation 50.3 fL (35.1-46.3); Red Blood Cell Count 3.05 M/mm3 (4.30-5.90); White Blood Cell Count 12.98 K/mm3 (4.00-11.30)
[2020-04-30 00:06] LABS: Troponin I 0.117 ng/mL (0.000-0.040)
[2020-04-30 00:07] LABS: Albumin, Blood 3.6 g/dL (3.4-5.0); Albumin/Globulin Ratio 1.1 (0.8-1.8); Bilirubin, Total 0.8 mg/dL (0.1-1.0); Bun/Creatinine Ratio 5.1 (12.0-20.0); Calcium, Blood 9.5 mg/dL (8.5-10.1); Creatinine, Blood 10.5 mg/dL (0.60-1.20); Globulin, Blood 3.4 g/dL (2.2-4.0); Potassium, Blood 4.7 mmol/L (3.5-5.5)
[2020-04-30] MEDS ORDERED: Ativan1 MG PO (02:01)
[2020-04-30] MEDS ORDERED: Catapres-Tts 11 EACH TOP (02:02)
--- NOTE | 2020-04-30 06:34 | NUR ---
SHIFT SUMMARY PATIENT ARRIVED TO ICU 2 @ 02:30 ON A NITRO DRIP, IMMEDIATELY INCREASED TO 100 MCG/MIN. PATIENT COMPLAINED OF PERSISTENT HEADACHE, DID NOT INCREASE NITRO DRIP FURTHER. CALLED DR. GLEZ AND DR. NUNEZ REGARDING PATIENT CONDITION; SITTING IN TRIPOD POSITION, TACHYPNIC, REQUIRING 2L NC, CONTINUOUSLY SHORT OF BREATH, COUGHING UP FROTHY SPUTUM. NO NER ORDERS PER DR. NUNEZ, DID RECEIVE 1 ADDITIONAL DOSE OF FENTANYL. PER DR. GLEZ, GIVE 60 MEQ LASIX AND GIVE COREG EARLY, "PT. IS STABLE ENOUGH TO WAIT UNTIL DIALYSIS AROUND 6 OR 7." I BROUGHT UP PERTINENT LABS AND PATIENT CONDITION, NO NEW ORDERS RECEIVED. PT. BLOOD PRESSURE FINALLY STARTED IMPROVING AFTER RECEIVING COREG, PAIN COMING BACK. ASSESSMENT IS CHARTED. VSS. WILL CONTINUE TO MONITOR.
--- NOTE | 2020-04-30 09:11 | NUR ---
pt laying in bed sitting up with his head in his hand, a/ox3, cooperative with care, follows commands, b/p is high, he is currently on a ntg gtt, Dr. Douglas was in to see him, ntg gtt turned down per her verbal order, will wean off when b/ps are reasonable, he is having dialysis at this time, lungs are clear t/o, resp even and unlabored, no cough noted, hrr, monitor in place running sr per monitor, see strip, no edema noted, ppp+1, cap refill <3sec, vs stable, afebrile, iv site is power glide to jean-pierre, and piv to lac, sites are clear and patent, btx4, abd flat soft and nontender, voids very little, skin c/w/d, permacaht to lcw, maew, weak, annie, call light in reach.
--- NOTE | 2020-04-30 10:50 | NUR ---
pt continues with dialysis, ntg gtt stopped at 0930 as b/p is lower now. Dr. Menendez was consulted, he was in and ordered a stress test, will keep npo for lunch until he is injected. call light in reach.
--- NOTE | 2020-04-30 10:53 | NUR ---
ADMIT: 04/30/20 DISCHARGE: DX: Hypertensive Emergency CC: PAO CALL: Pt at home RESIDENCE: Home CAREGIVER: self DX: Depressive disorder, HTN, pulmonary edema, sleep apnea, see list DME: nebulizer with mouthpiece CCM: none HOME HEALTH: none
--- NOTE | 2020-04-30 13:02 | NUR ---
04/30/20- PER CHART REVIEW WITH DR. DUENAS, PT WAS STARTED ON DIALYSIS. PT HAS END-STAGE RENAL DISEASE, CARDIOMYOPATHY RELATED TO CHF EXACERBATION. CARDIOLOGY HAS CONSULTED ON PT AND ORDERED A LEXISCAN STRESS TEST. NO ETA FOR D/C AT THIS TIME. -KIERRA
--- NOTE | 2020-04-30 14:38 | NUR ---
PT WENT DOWN FOR XRAYS FOR NUC STRESS TEST. PT STATUS WAS CHANGED TO MEDICAL WITH TELE.
--- NOTE | 2020-04-30 16:56 | NUR ---
Echocardiogram completed.
--- NOTE | 2020-04-30 18:15 | NUR ---
pt has been taken to medical floor, report given to Deepthi SPENCER. pt left via wheelchair with all his belongings.
--- NOTE | 2020-04-30 18:17 | NUR ---
Per admit trigger, I was tasked to offer information/education to Talat about Advanced Care Planning. He told me he was not interested and dismissed me.
--- NOTE | 2020-04-30 18:49 | NUR ---
SHIFT SUMMARY PT ARRIVED TO UNIT AT APPROXIMATELY 1750. PT IS AOX4 AND INDEPENDENT IN ROOM. PT IS EATING DINNER IN CHAIR WITH CALL LIGHT IN REACH.
--- NOTE | 2020-05-01 04:05 | NUR ---
SHIFT SUMMARY NO ACUTE CHANGES THIS SHIFT, PT CONTINUES TO C/O BACK, CHEST, LEG PAIN & LAZARO, MEDICATED PER MAY, CALLED MD & REC 1X ORDER FOR 5 OXY, BP'S CONTINUE TO BE ELEVATED, PT SLEPT INTERMITTANTLY T/O THE NIGHT (STATES THAT IS HIS "NORMAL"), SLEEPING AT THIS TIME, CALL LIGHT IN REACH, WILL CONT TO MONITOR UNTIL REPORT GIVEN TO DAY RN.
[2020-05-01 08:46] LABS: Hematocrit 24.5 % (37.0-53.0); Hemoglobin 7.9 g/dL (13.5-17.5); Mean Corpuscular HGB 31.1 pg (26.0-34.0); Mean Corpuscular HGB Conc 32.2 g/dL (31.5-36.5); Mean Corpuscular Volume 97 fL (80-100); Mean Platelet Volume 9.7 fL (9.1-12.4); Platelet Count 239 K/mm3 (150-400); RDW Coefficient Variation 13.8 % (11.7-14.2); RDW Standard Deviation 48.7 fL (35.1-46.3); Red Blood Cell Count 2.54 M/mm3 (4.30-5.90); White Blood Cell Count 11.06 K/mm3 (4.00-11.30)
[2020-05-01 09:12] LABS: Albumin, Blood 2.9 g/dL (3.4-5.0); Anion Gap 10 mmol/L (6-16); Blood Urea Nitrogen 49 mg/dL (8-24); Bun/Creatinine Ratio 5.1 (12.0-20.0); CO2, Blood 31 mmol/L (21-32); Calcium, Blood 8.9 mg/dL (8.5-10.1); Chloride, Blood 97 mmol/L (98-108); Creatinine, Blood 9.62 mg/dL (0.60-1.20); Glomerular Filtration Rate 6 (60-); Glucose, Blood 88 mg/dL (70-99); Phosphorus, Blood 6.7 mg/dL (2.5-4.9); Potassium, Blood 4.4 mmol/L (3.5-5.5); Sodium, Blood 138 mmol/L (136-145)
--- NOTE | 2020-05-01 18:02 | NUR ---
SHIFT SUMMARY NO ACUTE CHANGES T/O SHIFT, A&Ox4, CALM AND COOPERATIVE WITH CARE. BP ELEVATED AT BEGINNING OF SHIFT, LAST BP WAS MORE STABLE @ 143/86. EVERGREEN PROVIDER, FIRE EQUIPMENT OPERATOR, AND FEED RESEARCH TECHNICIAN WORKING TOGETHER TO CREATE REGIMEN TO HELP CONTROL BP PRIOR TO DISCHARGE. PT WAS TREATED FOR PAIN X1 TODAY. PAIN MEDICATION CHANGED TO OXYCODONE INSTEAD OF FETANYL. PT STATES OXY IS MORE EFFECTIVE. STRESS TEST COMPLETED TODAY, RESULTS PENDING. CT OF ABD ORDERED BUT NOT YET COMPLETED. EDEMA NOTED OF BLE. PT STATED HE HAS HAD THIS FOR A FEW MONTHS, SINCE KIDNEYS WORSENED. PT HAS BEEN ON RA THROUGHOUT DAY WITH NO COMPLAINTS OF SOB, CHEST PAIN, OR ANY OTHER DISTRESS. PT STATED HE WAS STRESSED R/T POSSIBLE CARDIAC RESULTS, STATES HE DOES NOT WANT ANOTHER PROBLEM/DIAGNOSIS. PT IS CURRENTLY SLEEPING WITH CALL LIGHT WITHIN REACH. PT IS INDEPENDENT IN THE ROOM.
--- NOTE | 2020-05-02 06:16 | NUR ---
TRAVIS WAS AWAKE WATCHING TV OR UP WALKING IN THE HALLS. HE REQUESTED PAIN MEDICATION TWICE OVERNIGHT EACH TIME WITH GOOD RESULTS. PAIN WAS IN FLANKS AND BILATERAL LOWER EXTREMITIES. 2ND TIME, TRAVIS ALSO HAD SOME ABDOMINAL PAIN. PATIENT DID TAKE HIS ENOXAPARIN WELL HIS WEEKLY ARANESP. COULD USE SOMETHING MORE TO HELP HIM SLEEP WHILE HE'S HERE.
[2020-05-02 09:01] LABS: BASOPHILS ABSOLUTE AUTO 0.06 K/mm3 (0.00-0.23); BASOPHILS PERCENT AUTO 1 % (0-2); EOSINOPHILS ABSOLUTE AUTO 2.59 K/mm3 (0.00-0.68); EOSINOPHILS PERCENT AUTO 25 % (0-6); Hematocrit 24.3 % (37.0-53.0); Hemoglobin 7.9 g/dL (13.5-17.5); IMMATURE GRAN ABSOLUTE AUTO 0.03 K/mm3 (0.00-0.10); IMMATURE GRAN PERCENT AUTO 0 % (0-1); LYMPHOCYTES ABSOLUTE AUTO 1.26 K/mm3 (0.84-5.20); LYMPHOCYTES PERCENT AUTO 12 % (21-46); MONOCYTES ABSOLUTE AUTO 0.59 K/mm3 (0.16-1.47); MONOCYTES PERCENT AUTO 6 % (4-13); Mean Corpuscular HGB 31.2 pg (26.0-34.0); Mean Corpuscular HGB Conc 32.5 g/dL (31.5-36.5); Mean Corpuscular Volume 96 fL (80-100); NEUTROPHILS ABSOLUTE AUTO 5.93 K/mm3 (1.96-9.15); NEUTROPHILS PERCENT AUTO 57 % (41-73); Platelet Count 219 K/mm3 (150-400); RDW Coefficient Variation 13.8 % (11.7-14.2); Red Blood Cell Count 2.53 M/mm3 (4.30-5.90); White Blood Cell Count 10.46 K/mm3 (4.00-11.30)
[2020-05-02 09:32] LABS: Albumin, Blood 3.1 g/dL (3.4-5.0); Anion Gap 5 mmol/L (6-16); Blood Urea Nitrogen 55 mg/dL (8-24); Bun/Creatinine Ratio 6.5 (12.0-20.0); CO2, Blood 33 mmol/L (21-32); Chloride, Blood 97 mmol/L (98-108); Creatinine, Blood 8.48 mg/dL (0.60-1.20); Glomerular Filtration Rate 7 (60-); Glucose, Blood 118 mg/dL (70-99); Phosphorus, Blood 7.1 mg/dL (2.5-4.9); Potassium, Blood 4.8 mmol/L (3.5-5.5); Sodium, Blood 135 mmol/L (136-145)
[2020-05-02 10:07] LABS: BASOPHILS PERCENT MAN 2 % (0-2); EOSINOPHILS ABSOLUTE MAN 2.71 K/mm3 (0.00-0.68); EOSINOPHILS PERCENT MAN 26 % (0-6); LYMPHOCYTES ABSOLUTE MAN 0.83 K/mm3 (0.84-5.20); LYMPHOCYTES PERCENT MAN 8 % (21-46); MONOCYTES PERCENT MAN 2 % (4-13); NEUTROPHILS ABSOLUTE MAN 6.48 K/mm3 (1.96-9.15); SEG NEUTROPHILS PERCENT MAN 62 % (41-73); TOTAL CELLS COUNTED 100
[2020-05-02] MEDS ORDERED: FURO80 PO (14:17)
[2020-05-02] MEDS ORDERED: LOSA25 PO (14:18)
[2020-05-02] MEDS ORDERED: METO25ER PO (14:19)
[2020-05-02] MEDS ORDERED: MIRALAX17 GM PO (14:21)
[2020-05-02] MEDS ORDERED: OXYC10TA19 PO (14:21)
[2020-05-02] MEDS ORDERED: NIFE30ER PO (14:23)
--- NOTE | 2020-05-02 16:21 | NUR ---
PT DISCHARGED AT APPROX 1615 VIA WHEELCHAIR BY GEOLOGICAL SCIENCE TEACHER. DISCHARGE INSTRUCTIONS REVIEWED WITH PT, PT STATED HE HAD NO FURTHER QUESTIONS OR CONCERNS. NEEDED PRESCRIPTIONS WERE FAXED TO PT PREFERRED PHARMACY. PERIPHERAL AND PG REMOVED AND SITES APPEARED WNL. PT STATED HE HAD ALL OF HIS BELONGINGS.
--- NOTE | 2020-05-02 16:51 | NUR ---
SUMMARY: Admit: 04/30/20- 05/02/20 Dsicharge home, has a ride arranged, can go to the pharmacy if needed. Discussed transition of care call from [place], 2 week follow up per Dr Roque. Did not identify any care needs at this discharge. cp
[2020-09-30] MEDS ORDERED: CLON.1 PO (15:40)
[2020-10-10] MEDS ORDERED: CLINGEL TOP (10:35)
[2020-10-10] MEDS ORDERED: DICLOFENAC SOD100 G1 TOP (10:36)
[2020-10-10] MEDS ORDERED: OXYC10TA19 PO (10:36)
== END 2020-05-02 16:10 | disposition home or self-care (01) | DRG 291 ==
LOC: ER 23:05 → MEDS 04-30 01:33 → ICUE 04-30 01:33 → ICUW 04-30 01:33 → ICUE 04-30 02:30 → MEDS 04-30 17:47
PROVIDERS: Emergency Medicine; Internal Medicine; ADMIT Family Medicine
PROC: 5A1D70Z Performance of Urinary Filtration, Intermittent, Less than 6 Hours Per Day (ICD-10-PCS; principal; 2020-04-30)
DX: I13.2 Hypertensive heart and chronic kidney disease with heart failure and with stage 5 chronic kidney disease, or end stage renal disease (principal); I50.23 Acute on chronic systolic (congestive) heart failure; N18.6 End stage renal disease; I16.1 Hypertensive emergency; I24.8 Other forms of acute ischemic heart disease; M31.31 Wegener's granulomatosis with renal involvement; Z20.822 Contact with and (suspected) exposure to COVID-19; K21.9 Gastro-esophageal reflux disease without esophagitis; Z99.2 Dependence on renal dialysis; E83.39 Other disorders of phosphorus metabolism; F41.9 Anxiety disorder, unspecified; I42.0 Dilated cardiomyopathy; I27.20 Pulmonary hypertension, unspecified; G47.00 Insomnia, unspecified; D63.1 Anemia in chronic kidney disease
CPT/HCPCS: 36415; 71045; 74150; 78452; 80053; 80069; 83605; 83690; 83880; 84145; 84484; 85025; 85027; 87040; 93005; 93010; 93017; 93308; 93321; 93970; 96365; 96375; 99285-25; A9270; A9500; C1751; J0360; J0696; J0706; J0881; J1644; J1940; J2270; J2785; J3010; J7050

== ENCOUNTER 2020-06-08 22:52 | Inpatient (IN) | payer MEDICARE, OTHER ==
[~2020-06-08] VITALS: Ht 182.9 cm; Wt 74.8 kg
[~2020-06-08 22:52] MED LIST changes: +Catapres-Tts 11 EACH TOP; +LOSA25 PO; +METO25ER PO; +MIRALAX17 GM PO; +NIFE30ER PO; +OXYC10TA19 PO
[2020-06-08 23:23] LABS: BASOPHILS ABSOLUTE AUTO 0.07 K/mm3 (0.00-0.23); BASOPHILS PERCENT AUTO 1 % (0-2); EOSINOPHILS ABSOLUTE AUTO 1.43 K/mm3 (0.00-0.68); EOSINOPHILS PERCENT AUTO 11 % (0-6); Hematocrit 22.3 % (37.0-53.0); Hemoglobin 7.4 g/dL (13.5-17.5); IMMATURE GRAN ABSOLUTE AUTO 0.04 K/mm3 (0.00-0.10); IMMATURE GRAN PERCENT AUTO 0 % (0-1); LYMPHOCYTES ABSOLUTE AUTO 1.17 K/mm3 (0.84-5.20); LYMPHOCYTES PERCENT AUTO 9 % (21-46); MONOCYTES ABSOLUTE AUTO 0.45 K/mm3 (0.16-1.47); MONOCYTES PERCENT AUTO 3 % (4-13); Mean Corpuscular HGB 30.8 pg (26.0-34.0); Mean Corpuscular HGB Conc 33.2 g/dL (31.5-36.5); Mean Corpuscular Volume 93 fL (80-100); Mean Platelet Volume 10.6 fL (9.1-12.4); NEUTROPHILS ABSOLUTE AUTO 10.13 K/mm3 (1.96-9.15); NEUTROPHILS PERCENT AUTO 76 % (41-73); Platelet Count 236 K/mm3 (150-400); RDW Coefficient Variation 14.1 % (11.7-14.2); RDW Standard Deviation 47.8 fL (35.1-46.3); White Blood Cell Count 13.29 K/mm3 (4.00-11.30)
[2020-06-08 23:46] LABS: Troponin I 0.162 ng/mL (0.000-0.040)
[2020-06-08 23:52] LABS: Albumin, Blood 2.9 g/dL (3.4-5.0); Albumin/Globulin Ratio 0.8 (0.8-1.8); Bun/Creatinine Ratio 8.3 (12.0-20.0); Calcium, Blood 8.8 mg/dL (8.5-10.1); Creatinine, Blood 10.5 mg/dL (0.60-1.20); Globulin, Blood 3.6 g/dL (2.2-4.0); Potassium, Blood 4.4 mmol/L (3.5-5.5); Total Protein, Blood 6.5 g/dL (6.4-8.2)
[2020-06-09 00:37] LABS: Magnesium, Blood 2.6 mg/dL (1.6-2.4)
[2020-06-09 01:41] LABS: Influenza A, PCR NEGATIVE (NEGATIVE); Influenza B, PCR NEGATIVE (NEGATIVE); Resp Syncytial Virus, PCR NEGATIVE (NEGATIVE); SARS-Cov-2 (COVID-19) PCR, MMC NEGATIVE (NEGATIVE)
[2020-06-09 07:26] LABS: BASOPHILS ABSOLUTE AUTO 0.08 K/mm3 (0.00-0.23); BASOPHILS PERCENT AUTO 1 % (0-2); EOSINOPHILS ABSOLUTE AUTO 1.71 K/mm3 (0.00-0.68); EOSINOPHILS PERCENT AUTO 11 % (0-6); Hematocrit 23.4 % (37.0-53.0); Hemoglobin 7.7 g/dL (13.5-17.5); IMMATURE GRAN ABSOLUTE AUTO 0.07 K/mm3 (0.00-0.10); IMMATURE GRAN PERCENT AUTO 1 % (0-1); LYMPHOCYTES ABSOLUTE AUTO 1.08 K/mm3 (0.84-5.20); LYMPHOCYTES PERCENT AUTO 7 % (21-46); MONOCYTES ABSOLUTE AUTO 0.42 K/mm3 (0.16-1.47); MONOCYTES PERCENT AUTO 3 % (4-13); Mean Corpuscular HGB 30.8 pg (26.0-34.0); Mean Corpuscular HGB Conc 32.9 g/dL (31.5-36.5); Mean Corpuscular Volume 94 fL (80-100); Mean Platelet Volume 10.8 fL (9.1-12.4); NEUTROPHILS ABSOLUTE AUTO 11.73 K/mm3 (1.96-9.15); NEUTROPHILS PERCENT AUTO 78 % (41-73); Platelet Count 238 K/mm3 (150-400); RDW Coefficient Variation 14.4 % (11.7-14.2); RDW Standard Deviation 49.3 fL (35.1-46.3); White Blood Cell Count 15.09 K/mm3 (4.00-11.30)
[2020-06-09 08:12] LABS: Troponin I 0.151 ng/mL (0.000-0.040)
[2020-06-09 08:15] LABS: Albumin, Blood 2.9 g/dL (3.4-5.0); Albumin/Globulin Ratio 0.8 (0.8-1.8); Bilirubin, Total 0.9 mg/dL (0.1-1.0); Bun/Creatinine Ratio 8.3 (12.0-20.0); Calcium, Blood 9.3 mg/dL (8.5-10.1); Creatinine, Blood 11.2 mg/dL (0.60-1.20); Globulin, Blood 3.7 g/dL (2.2-4.0); Potassium, Blood 4.7 mmol/L (3.5-5.5); Total Protein, Blood 6.6 g/dL (6.4-8.2)
--- NOTE | 2020-06-09 17:13 | NUR ---
PT AOX4 AND COOPERATIVE OF CARE. PT REPORTING PAIN IMMEDIATELY UPON ARRIVAL TO UNIT. PT ALSO WAS HAVING VERY HIGH BPs FIRST ON COMMING UP TO THIRD FLOOR WAS 196/124 HR 120. PT HAD BEEN TREATED WITH PER EMAR FOR THIS, BUT IT WAS THOUGHT PT JUST NEEDED TO GET DIALYSIS AND HEART MEDICATIONS. PT WAS GIVEN BP MEDS AND TREATED WITH HEART MEDICAITONS PER EMAR. DR ROTH HAD BEEN NOTIFIED OF PT'S REPORT OF PAIN AND CHANGED FREQUENCY ON EMAR. PT CONTINUES TO HAVE PAIN AND DOES NOT LIKE TO GET POKED BY NEEDLES. PT HAS DENIED BLADDER SCAN AND REFUSED HIS LAST LABS TO BE DRAWN. PT'S LAS BP WAS 119/70 HR 100. ORAL MEDICATIONS WERE ORDERED AND NO IV ACCESS NEEDED WAS ORDERED WELL. PT INDEPENDENT WILL CONTINUE TO MONITOR. PT HAS SORE UNDER NOSE ABOVE LIP AND SWAB WAS COMPLETED TO CHECK FOR MRSA.
--- NOTE | 2020-06-09 19:30 | NUR ---
REFUSAL REFUSING MULTIPLE BLOOD DRAWS DURING THE DAY. 10 MIN EDUCATION ON WHY THIS PARTICULAR BLOOD TEST (TROPONIN) IS IMPORTANT. MULTIPLE TIMES PATIENT STATED HE DID NOT UNDERSTAND WHY THEY NEEDED TO DRAW LABS. EXPLAINED THAT THE TESTING IS DIRECTLY CORRELATED TO TREATMENT PLAN AND ULTIMATELY IF HE CONTINUES TO REFUSE IT WILL DELAY HIS TREATMENT. WILL NOTIFY PROVIDER
--- NOTE | 2020-06-09 19:45 | NUR ---
PHYSICIAN CORRESPONDENCE SPOKE TO DR. GATICA ABOUT REFUSAL OF LAB DRAW DURING THE DAY. OK TO REFUSE AT THIS TIME, WILL ATTEMPT TO COMPLETE DURING DIALYSIS TOMORROW.
[2020-06-09 21:08] LABS: Troponin I 0.128 ng/mL (0.000-0.040)
--- NOTE | 2020-06-10 02:00 | NUR ---
PHYSICIAN CORRESPONDENCE ELEVATED BP 178/130 P 106. NEW ORDERS FOR PO HYDRALAZINE 10 MG Q6P.
--- NOTE | 2020-06-10 02:33 | NUR ---
PHYSICIAN CORRESPONDENCE ORDERS TO HAVE TELE IN PLACE; HOWEVER, NO REPORTED CP. TROPONINS TRENDING IN EXPECTED DIRECTION. NO IV ACCESS. OK TO DC TELE.
--- NOTE | 2020-06-10 06:25 | NUR ---
SHIFT SUMMARY A/O, ABLE TO MAKE NEEDS KNOWN. COOPERATIVE WITH MOST CARE; BECOMES RESISTANT AT TIMES. REQUIRES THOROUGH EXPLAINATIONS OF TREATMENTS. C/O PAIN/DISCOMFORT T/O NIGHT RECIEVED 2 OT DOSES OF PAIN MEDICATION; WITH MINIMAL RELIEF. INDEPENDENT IN ROOM. GATICA INTO VISIT WITH PATIENT THIS AM; PLACED ON 1L FLUID RESTRICTION AND ORDERED DIETARY CONSULT. ALSO ORDERED REPEAT ECHO. OK TO GET LAB DRAWS DURING DIALYSIS. HYPERTENSIVE THIS SHIFT; NEW ORDERS PER ON-CALL PROVIDER; RECIEVED. BED IN LOWEST POSITION. CALL LIGHT AND BELONGINGS WITHIN REACH. CONTINUE WITH CURRENT PLAN OF CARE. REPORT TO ONCOMING RN.
[2020-06-10 09:08] LABS: HBSAG SCREEN Negative (Negative); HEP A AB, IGM Negative (Negative); HEP B CORE AB, IGM Negative (Negative); HEP C VIRUS AB <0.1 (0.0-0.9)
[2020-06-10 09:48] LABS: Hematocrit 21.5 % (37.0-53.0)
[2020-06-10 10:14] LABS: Magnesium, Blood 2.6 mg/dL (1.6-2.4)
[2020-06-10 10:15] LABS: Albumin, Blood 2.9 g/dL (3.4-5.0); Anion Gap 11 mmol/L (6-16); Blood Urea Nitrogen 77 mg/dL (8-24); CO2, Blood 30 mmol/L (21-32); Calcium, Blood 9.3 mg/dL (8.5-10.1); Chloride, Blood 95 mmol/L (98-108); Glucose, Blood 106 mg/dL (70-99); Phosphorus, Blood 7.3 mg/dL (2.5-4.9); Potassium, Blood 4.6 mmol/L (3.5-5.5); Sodium, Blood 136 mmol/L (136-145)
[2020-06-10 10:19] LABS: Bun/Creatinine Ratio 8.2 (12.0-20.0)
[2020-06-10 10:33] LABS: Glomerular Filtration Rate 6 (60-)
[2020-06-10] MEDS ORDERED: SULTRIDS PO (15:39)
--- NOTE | 2020-06-10 16:33 | NUR ---
PT AOX4 AND COOPERATIVE OF CARE. PT DISCHARGED AT 1500. PT RECIEVED DIALYSIS AND WAS TREATED WITH AN ANTIBOTIC PER EMAR AFTER DIALYSIS TREATMENT WAS DONE. PT ALSO HAS HAD BACK AND LEG PAIN TREATED PER EMAR. PT HAD ALL PAPERWORK REVIEWED, SIGNED AND EDUCATIONAL MATERIAL SENT WITH HIM. PT ESCORTED BY THIS ROAD CUTTER VIA WHEEL CHAIR TO ENTRANCE. NO DISTRESS NOTED.
[2020-06-14 14:10] LABS: ANA DIRECT Negative (Negative); ANTIMYELOPEROXIDASE (MPO) ABS <9.0 U/mL (0.0-9.0); ANTIPROTEINASE 3 (PR-3) ABS >100.0 U/mL (0.0-3.5); ATYPICAL PANCA <1:20 titer (Neg:<1:20); PERINUCLEAR (P-ANCA) <1:20 titer (Neg:<1:20)
[2020-09-30] MEDS ORDERED: CLON.1 PO (15:40)
[2020-10-10] MEDS ORDERED: CLINGEL TOP (10:35)
[2020-10-10] MEDS ORDERED: OXYC10TA19 PO (10:36)
[2020-10-10] MEDS ORDERED: DICLOFENAC SOD100 G1 TOP (10:36)
== END 2020-06-10 16:15 | disposition home or self-care (01) | DRG 291 ==
LOC: ER 22:52 → ERHOLD 22:53 → MEDS 22:53 → ERHOLD 22:53 → MEDS 06-09 09:23
PROVIDERS: Emergency Medicine; Internal Medicine Nephrology; ADMIT Internal Medicine
PROC: 5A1D70Z Performance of Urinary Filtration, Intermittent, Less than 6 Hours Per Day (ICD-10-PCS; principal; 2020-06-10)
DX: I13.2 Hypertensive heart and chronic kidney disease with heart failure and with stage 5 chronic kidney disease, or end stage renal disease (principal); N18.6 End stage renal disease; I50.23 Acute on chronic systolic (congestive) heart failure; M31.31 Wegener's granulomatosis with renal involvement; D64.9 Anemia, unspecified; K21.9 Gastro-esophageal reflux disease without esophagitis; Z79.899 Other long term (current) drug therapy; J34.0 Abscess, furuncle and carbuncle of nose; G47.00 Insomnia, unspecified; L98.499 Non-pressure chronic ulcer of skin of other sites with unspecified severity; F41.9 Anxiety disorder, unspecified; Z98.890 Other specified postprocedural states
CPT/HCPCS: 0241U; 36415; 71045; 80053; 80069; 80074; 82550; 83520; 83735; 83880; 84484; 85014; 85018; 85025; 86256; 86317; 87081; 93005; 93010; 93308; 93321; 96361; 96372; 96374; 96375; 96376; 99285-25; A9270; G0378; J0360; J0881; J2270; J3010; J7030

== ENCOUNTER 2020-06-15 18:02 | Inpatient (IN) | payer MEDICARE, OTHER ==
[~2020-06-15] VITALS: Ht 182.9 cm; Wt 74.1 kg
[~2020-06-15 18:02] MED LIST changes: +SULTRIDS PO
[2020-06-15 18:42] LABS: BASOPHILS ABSOLUTE AUTO 0.06 K/mm3 (0.00-0.23); BASOPHILS PERCENT AUTO 0 % (0-2); EOSINOPHILS ABSOLUTE AUTO 0.32 K/mm3 (0.00-0.68); EOSINOPHILS PERCENT AUTO 2 % (0-6); Hematocrit 20.8 % (37.0-53.0); Hemoglobin 6.7 g/dL (13.5-17.5); IMMATURE GRAN ABSOLUTE AUTO 0.09 K/mm3 (0.00-0.10); IMMATURE GRAN PERCENT AUTO 1 % (0-1); LYMPHOCYTES ABSOLUTE AUTO 0.62 K/mm3 (0.84-5.20); LYMPHOCYTES PERCENT AUTO 3 % (21-46); MONOCYTES ABSOLUTE AUTO 0.61 K/mm3 (0.16-1.47); MONOCYTES PERCENT AUTO 3 % (4-13); Mean Corpuscular HGB 29.5 pg (26.0-34.0); Mean Corpuscular HGB Conc 32.2 g/dL (31.5-36.5); Mean Corpuscular Volume 92 fL (80-100); Mean Platelet Volume 10.2 fL (9.1-12.4); NEUTROPHILS ABSOLUTE AUTO 17.49 K/mm3 (1.96-9.15); NEUTROPHILS PERCENT AUTO 91 % (41-73); Platelet Count 311 K/mm3 (150-400); RDW Coefficient Variation 14.7 % (11.7-14.2); RDW Standard Deviation 49.7 fL (35.1-46.3); Red Blood Cell Count 2.27 M/mm3 (4.30-5.90); White Blood Cell Count 19.19 K/mm3 (4.00-11.30)
[2020-06-15 19:05] LABS: Troponin I 0.079 ng/mL (0.000-0.040)
[2020-06-15 19:18] LABS: Albumin, Blood 3.1 g/dL (3.4-5.0); Albumin/Globulin Ratio 0.7 (0.8-1.8); Bun/Creatinine Ratio 8.1 (12.0-20.0); Calcium, Blood 9.8 mg/dL (8.5-10.1); Globulin, Blood 4.3 g/dL (2.2-4.0); Potassium, Blood 4.7 mmol/L (3.5-5.5); Total Protein, Blood 7.4 g/dL (6.4-8.2)
[2020-06-15 21:09] LABS: D-Dimer, Quantitative 3.83 mg/L FEU (0.00-0.52); International Normalized Ratio 1.17; Prothrombin Time Results 12.4 Sec (9.7-11.5)
[2020-06-15 22:36] LABS: Percent Saturation 6.3 % (20.0-50.0)
--- NOTE | 2020-06-16 00:40 | NUR ---
PT REFUSED TROPONIN LABS. SAID HE WAS TOO WEAK TO GIVE BLOOD.
--- NOTE | 2020-06-16 04:49 | NUR ---
CALLED DR NUNEZ REGARDING PT'S BLOOD PRESSURE BEING 184/135. ORDERED 10MG IV HYDRALAZINE NOW.
--- NOTE | 2020-06-16 06:15 | NUR ---
SHIFT SUMMARY PT'S BLOOD PRESSURE HAS BEEN VERY HIGH, HAVE BEEN MEDICATING PER EMAR. PT VERY PAINFUL 8/10 CRAMPING ON LEFT SIDE INTO BACK AND HAVE BEEN MEDICATING PER EMAR. DENIES CHEST PAIN. PT IS ON 2L 02 WITH SATS >92%. PT HAD BEEN WANDERING AROUND ROOM WHEN IN PAIN TRYING TO STRETCH SIDE FOR RELIEF, ICEPACK PLACED. HE ALSO STATES THAT HE NEEDS TO HAVE A BM AND THE WOULD ALSO BE CAUSING THE PAIN. HAS BEEN UNCOOPERATIVE WITH CARE. WANTS EVERYTHING STOPPED WHEN HE IS PAINFUL.
[2020-06-16 06:39] LABS: BASOPHILS ABSOLUTE AUTO 0.05 K/mm3 (0.00-0.23); BASOPHILS PERCENT AUTO 0 % (0-2); EOSINOPHILS ABSOLUTE AUTO 0.28 K/mm3 (0.00-0.68); EOSINOPHILS PERCENT AUTO 1 % (0-6); Hematocrit 19.5 % (37.0-53.0); Hemoglobin 6.2 g/dL (13.5-17.5); IMMATURE GRAN ABSOLUTE AUTO 0.15 K/mm3 (0.00-0.10); IMMATURE GRAN PERCENT AUTO 1 % (0-1); LYMPHOCYTES ABSOLUTE AUTO 0.55 K/mm3 (0.84-5.20); LYMPHOCYTES PERCENT AUTO 3 % (21-46); MONOCYTES ABSOLUTE AUTO 0.53 K/mm3 (0.16-1.47); MONOCYTES PERCENT AUTO 3 % (4-13); Mean Corpuscular HGB 29.2 pg (26.0-34.0); Mean Corpuscular HGB Conc 31.8 g/dL (31.5-36.5); Mean Corpuscular Volume 92 fL (80-100); Mean Platelet Volume 10.4 fL (9.1-12.4); NEUTROPHILS PERCENT AUTO 92 % (41-73); Platelet Count 292 K/mm3 (150-400); RDW Coefficient Variation 14.5 % (11.7-14.2); RDW Standard Deviation 49.3 fL (35.1-46.3); Red Blood Cell Count 2.12 M/mm3 (4.30-5.90); White Blood Cell Count 19.56 K/mm3 (4.00-11.30)
--- NOTE | 2020-06-16 06:54 | NUR ---
NOTIFIED HOSPITALIST ENRIQUE ABOUT HGB 6.2. STATED THAT SHE SPOKE WITH EN LAST NIGHT REGARDING PT AND HE WILL ORDER THAT DURING DIALYSIS.
[2020-06-16 07:06] LABS: Troponin I 0.094 ng/mL (0.000-0.040)
[2020-06-16 07:08] LABS: Bun/Creatinine Ratio 8.9 (12.0-20.0); Calcium, Blood 9.6 mg/dL (8.5-10.1); Creatinine, Blood 10.7 mg/dL (0.60-1.20); Potassium, Blood 5.2 mmol/L (3.5-5.5)
[2020-06-16 12:59] LABS: Vancomycin, Random 18.5 ug/mL
--- NOTE | 2020-06-16 14:36 | NUR ---
PT TO CT VIA WHEELCHAIR.
--- NOTE | 2020-06-16 18:07 | NUR ---
PT ALERT AND ORIENTED X4. ON 2-3 L O2 SATING 94-95%. TELE SHOWING SINUS TACH WITH HR 100-110'S. DENIES CHEST PAIN. COMPLAINS OF PAIN IN BACK AND RIBS. MEDICATED PER EMAR WITH GOOD RELIEF. DIALYSIS THIS AM WITH 2 UNITS OF PRBC TRANSFUSED. SCAB UNDER NOSE, APPLIED BACTROBAN THIS SHIFT X2. BLADDER SCAN PRN. UP IN ROOM AND INDEPENDENT TO BATHROOM. SBA FOR SAFETY. TOWARDS THE END OF SHIFT PT COMPLAINS OF "JOINT PAIN" MEDICATED PER EMAR WITH RELEIF. LOWER EXTREMITY FEET/ANKLE EDEMA. PT EDUCATED ON ELEVATING LEGS. CALL LIGHT IN REACH. STOOL SOFTNERS GIVEN. BED REMAINED IN LOW LOCKD POSITION. WILL CONTINUE TO MONITOR.
--- NOTE | 2020-06-16 21:26 | NUR ---
ASSUMED CARE PT IS A/O. REPORTING PAINFUL KNEE AND HAND JOINTS. WILL CONTINUE TO MONITOR.
[2020-06-17 03:47] LABS: Hematocrit 22.6 % (37.0-53.0); Hemoglobin 7.5 g/dL (13.5-17.5)
--- NOTE | 2020-06-17 04:16 | NUR ---
CALLED DR NUNEZ REGARDING PT'S HIGH BLOOD PRESSURES. ORDERED HYDRALAZINE 10MG IV NOW.
[2020-06-17 04:34] LABS: Albumin, Blood 2.6 g/dL (3.4-5.0); Anion Gap 11 mmol/L (6-16); Blood Urea Nitrogen 83 mg/dL (8-24); Bun/Creatinine Ratio 10.4 (12.0-20.0); CO2, Blood 28 mmol/L (21-32); Calcium, Blood 10.1 mg/dL (8.5-10.1); Chloride, Blood 94 mmol/L (98-108); Creatinine, Blood 7.98 mg/dL (0.60-1.20); Glomerular Filtration Rate 8 (60-); Glucose, Blood 140 mg/dL (70-99); Magnesium, Blood 2.8 mg/dL (1.6-2.4); Potassium, Blood 5.4 mmol/L (3.5-5.5); Sodium, Blood 133 mmol/L (136-145)
[2020-06-17 04:58] LABS: Phosphorus, Blood 8.6 mg/dL (2.5-4.9)
--- NOTE | 2020-06-17 06:14 | NUR ---
SHIFT SUMMARY PT A/O. BLOOD PRESSURE HAS INCREASED WELL A PAIN DISCOMFORT. HAS BEEN MEDICATED PER EMAR. CRITICAL PHOS VALUE CALLED IN BY LAB THIS AM AND CHARGE NURSE WAS NOTIFIED. PT HAS BEEN AD [place] IN ROOM THROUGHOUT THE NIGHT. PT HAS BEEN COOPERATIVE WITH ALL STAFF AND USES CALL LIGHT APPROPRIATELY.
--- NOTE | 2020-06-17 10:09 | NUR ---
PT ALERT AND ORIENTED X4. LAYING IN BED THIS MORNING COMPLAINING OF SOME MINIMAL PAIN IN BACK AND RIBS. MEDICATED PER EMAR PRIOR TO DIALYSIS. ON 3 L O2 SATING ABOVE 92%. TELE SHOWING SINUS TACH WITH HR 100-110'S. DENIES CHEST PAIN. OCCASIONAL COUGH THIS AM WITH BLOOD TINGED SPUTUM. PT STATES HE HAS ONLY COUGHED UP BLOOD ONCE. UP USING RESTROOM WITH SBA FOR SAFETY. DIALYSIS THIS AM. WILL CONTINUE TO MONITOR.
--- NOTE | 2020-06-17 12:48 | NUR ---
PT BACK FROM DIALYSIS. 4.2 L TAKEN OFF. VITAL SIGNS STABLE. WILL CONTINUE TO MONITOR.
--- NOTE | 2020-06-17 13:52 | NUR ---
PT TRANFER TO MEDICAL FLOOR VIA WHEELCHAIR. NO ACUTE CHANGES. REFER TO PAST NOTES. PT SATING AT 98% WITH 3 L O2, PT WANTING O2 OFF. WEANED OFF O2 AND SATING ABOVE 92% ON ROOM AIR. PT BELONGINGS AND CHART TAKEN WITH PATIENT ON TRANSFER.
--- NOTE | 2020-06-17 17:13 | NUR ---
PT ARRIVED TO THE UNIT THIS AFTERNOON. PT ORIENTED TO THE ROOM. MEDICATED FOR PAIN. HE IS IN THE CHAIR WITH THE CALL LIGHT IN REACH.
--- NOTE | 2020-06-18 02:15 | NUR ---
ASSUMED CARE OF PT. THIS RN AGREES TO PREVIOUS RN'S ASSESSMENT FINDINGS. HE'S SLEEPING IN BED AT THIS TIME W/O COMPLAINTS OR S/S DISTRESS. CECIL.
--- NOTE | 2020-06-18 04:02 | NUR ---
BP 184/133. PT ALSO C/O 7/10 PAIN. ROXICODONE AND HYDRALOZINE RECIEVED PRN PER PARAMETERS, WILL RE-EVALUATE FOR EFFECT.
--- NOTE | 2020-06-18 04:47 | NUR ---
SUMMARY: PT A/OX4, INDEPENDENT AND CALLS APPROPRIATELY TO SPECIFY NEEDS. HE CONT'S TO C/O GENERALISED PAIN W/FENTANYL X2 AND ROXICODONE X2 RECIEVED PRN FOR TOLERABLE RELIEF. OCCASSIONAL MOIST COUGH PERSISTS BUT PT DENIES ANY HEMOPTYSIS THIS SHIFT. HE'S TOLERATED RA AT TIMES T/O NOCTE BUT WEARS 2-3L O2 AD KENISHA. PT IS NSR-S.TACH AT 90'S-100'S BPM ON TELEMETRY. BP WAS ELEVATED AGAIN THIS AM W/PRN HYDRALAZINE AND PAIN MEDS PROVIDED FOR SOME IMPROVEMENT. HE'S BEEN COMPLIANT W/1L FR AND WILL LIKELY HAVE DIALYSIS TODAY. NO ACUTE CHANGES. WCTM AND REPORT TO DAY RN.
[2020-06-18 04:52] LABS: Hematocrit 22.6 % (37.0-53.0); Hemoglobin 7.2 g/dL (13.5-17.5)
[2020-06-18 05:16] LABS: Albumin, Blood 2.7 g/dL (3.4-5.0); Anion Gap 10 mmol/L (6-16); Blood Urea Nitrogen 96 mg/dL (8-24); Bun/Creatinine Ratio 13.5 (12.0-20.0); CO2, Blood 28 mmol/L (21-32); Calcium, Blood 9.6 mg/dL (8.5-10.1); Chloride, Blood 92 mmol/L (98-108); Creatinine, Blood 7.11 mg/dL (0.60-1.20); Glomerular Filtration Rate 9 (60-); Glucose, Blood 155 mg/dL (70-99); Magnesium, Blood 2.7 mg/dL (1.6-2.4); Potassium, Blood 5.8 mmol/L (3.5-5.5); Sodium, Blood 130 mmol/L (136-145)
[2020-06-18 05:55] LABS: Phosphorus, Blood 8.1 mg/dL (2.5-4.9)
--- NOTE | 2020-06-18 06:14 | NUR ---
CRITICAL PHOS AGAIN THIS AM BUT TRENDING DOWNWARD, NOW 8.1 WAS 8.6. CONSULTING AND PT RECIEVING DIALYSIS.
--- NOTE | 2020-06-18 11:06 | NUR ---
ASSUMED PT CARE AT 0710. CLIENT PAINFUL, MEDICATED WITH FENTANYL WITHOUT ADEQUATE RELIEF. SPOKE WITH DR. DE LEON,PAIN MEDICATIONS ADJUSTED SEE EMR. CLIENT OFF FLOOR FOR DIALYSIS @945. MORNING MEDS HELD PER FINANCIAL AIDS OFFICER [facility] INSTUCTIONS. WILL REASSESS WHEN CLIENT BACK ON FLOOR. CLIENT REFUSED AM VS. HE IS NOT COOPERATIVE. AM MEAL TRAY SCATTERED ACROSS FLOOR. THIS RN ATTEMPTED TO ASSESS CLIENT NEEDS, WITHOUT ADEQUATE RESPONSES. PT REPORTS HE ' WANTS TO BE LEFT ALONE" WILL CONTINUE TO MONITOR
[2020-06-19 05:01] LABS: BASOPHILS ABSOLUTE AUTO 0.01 K/mm3 (0.00-0.23); BASOPHILS PERCENT AUTO 0 % (0-2); EOSINOPHILS ABSOLUTE AUTO 0.05 K/mm3 (0.00-0.68); EOSINOPHILS PERCENT AUTO 0 % (0-6); Hemoglobin 6.6 g/dL (13.5-17.5); IMMATURE GRAN ABSOLUTE AUTO 0.09 K/mm3 (0.00-0.10); IMMATURE GRAN PERCENT AUTO 1 % (0-1); LYMPHOCYTES ABSOLUTE AUTO 0.81 K/mm3 (0.84-5.20); LYMPHOCYTES PERCENT AUTO 5 % (21-46); MONOCYTES ABSOLUTE AUTO 0.78 K/mm3 (0.16-1.47); MONOCYTES PERCENT AUTO 5 % (4-13); Mean Corpuscular HGB 29.1 pg (26.0-34.0); Mean Corpuscular HGB Conc 31.4 g/dL (31.5-36.5); Mean Corpuscular Volume 93 fL (80-100); Mean Platelet Volume 10.5 fL (9.1-12.4); NEUTROPHILS ABSOLUTE AUTO 13.87 K/mm3 (1.96-9.15); NEUTROPHILS PERCENT AUTO 89 % (41-73); Platelet Count 267 K/mm3 (150-400); RDW Coefficient Variation 15.3 % (11.7-14.2); RDW Standard Deviation 51.4 fL (35.1-46.3); Red Blood Cell Count 2.27 M/mm3 (4.30-5.90); White Blood Cell Count 15.61 K/mm3 (4.00-11.30)
[2020-06-19 05:18] LABS: Albumin, Blood 2.5 g/dL (3.4-5.0); Anion Gap 11 mmol/L (6-16); Blood Urea Nitrogen 100 mg/dL (8-24); Bun/Creatinine Ratio 13.6 (12.0-20.0); CO2, Blood 25 mmol/L (21-32); Calcium, Blood 9.3 mg/dL (8.5-10.1); Chloride, Blood 95 mmol/L (98-108); Creatinine, Blood 7.38 mg/dL (0.60-1.20); Glomerular Filtration Rate 9 (60-); Glucose, Blood 129 mg/dL (70-99); Magnesium, Blood 2.8 mg/dL (1.6-2.4); Phosphorus, Blood 7.3 mg/dL (2.5-4.9); Potassium, Blood 5.1 mmol/L (3.5-5.5); Sodium, Blood 131 mmol/L (136-145)
--- NOTE | 2020-06-19 06:35 | NUR ---
SHIFT SUMMARY AOX4. WITHDRAWN. COOPERATIVE. REPORTS 5-11/30 BACK & LUNG PAIN, MEDICATED 2X c 50MCG IV FENTANYL & 2X c 5MG ROXICODONE, DISCUSSED c PT THE IMPORTANCE OF STAGGERING BOTH PAIN MEDS FOR EFFECTIVE PAIN RELIEF, PT STATED MILD RELIEF. VSS. HELD HS SCHEDULED NITRO PATCH SINCE BP WAS UNDER PARAMETERS TO GIVE. THIS AM BP WAS 169 SYSTOLIC, HOWEVER PT IN PAIN & REFUSED TO TAKE IV HYDRALAZINE- MEDICATED FOR PAIN @THAT TIME. TELE NSR @93. PT COUGHING UP MODERATE AMOUNT BLOOD c SPUTUM, LUNGS DIM, DENIES DYSPNEA, SPO2 >90% ON RA. HGB @6.6 THIS AM INFORMED DR GATICA, HE REPORTED PT WOULD RECIEVE DIALYSIS & BLOOD TRANSFUSION, ALSO ORDERED 60MG PO PREDNISONE QD. CALL LIGHT IN REACH.
--- NOTE | 2020-06-19 17:28 | NUR ---
ALERT. ORIENTED. HAD DIALYSIS TODAY. INDEPENDENT IN ROOM. REFUSES VARIOUS MEDS. MEDICATED FOR PAIN T/O DAY WITH TOLERABLE RESULTS. GETTING IV CHEM WITH PACHECO SPENCER IN CHARGE OF IT AND APPEARS TO BE TOLERATING WELL. REFUSES APRESOLINE FOR B.P. CONTROL. TAKES TELE OFF OFTEN AND FORGETS TO PUT BACK ON. WCTM
--- NOTE | 2020-06-19 18:54 | NUR ---
ADMIT: 06/16/20 DISCHARGE: DX: hypertensive emergency CC: Kwilcox PAO CALL: RESIDENCE: HOME WITH BROTHER AND SISTERINLAW CAREGIVER: self DX: Depressive disorder, HTN, pulmonary edema, sleep apnea, see list DME: Nebulizer and equipment CCM: None HOME HEALTH: None SUMMARY: Admit: 06/16/20 06/19/20 stopped by patient's room, out for dialysis, Updated white board with my name and number. Dr Malik does not think he will have any discharge needs. no eta for discharge. cp 06/18/20 stopped by patient's room, just leaving for dialysis. Dr Malik states will be staying for few more days. 1. Ieopu-lm-[id number] systolic congestive heart failure in the setting of end-stage renal disease and volume overload. Reviewed echo from 06/10/2020, which shows an EF of 40% to 45%.
--- NOTE | 2020-06-19 19:02 | NUR ---
ADMIT: 06/14/20 DISCHARGE: DX:Sepsis, UTI CC: kwilcox PAO CALL: RESIDENCE: CAREGIVER: SonAshwin [phone] DX: Afib, BPH, arrhythmia, HTN. dementia, hyperlipidemia, see list DME: none CCM:none HOME HEALTH: [facility]- 2018; [facility]- current SUMMARY: Admit: 06/14/20 06/19/[address] Malik, son interested in hospice at home. I will send packet to [facility].s/w Ying at [facility] earlier in day, no eta for discharge. Still treating UTI. 06/18/20 stopped by patient room, not awake, eating, or drinking.Called Deion @ [place] [facility], . He will contact son at home to discuss director writing options.Called Son Ashwin to discuss VA benefits, caregivers or hospice placement. Ashwin did not remember speaking with the Dr earlier. Thinks his Dad wants to come home. Called Kirti, possible thu/ admit, [facility] available . will talk to son to day in person when he comes in to visit. cp 06/15/20- I called and talked with the son. Pt has VA benefits. Family is needing to place the pt in a long-term care facility, they can't care for him in the home. Son, Ashwin, told me that pt is using all this social security to pay for his 's stay at [facility] and family can't pay for him to go there with her. I have called the VA to find out if he is services connected and if so at what percentage. Waiting for a call back.
--- NOTE | 2020-06-19 22:09 | NUR ---
06/19/202119 Chemotherapy IV and NS flush has completed. Pt IV site remains patent and no irritation or discomfort noted. Pt is resting with no s/s of discomfort or distress. Primary RN notified of chemo completion.
[2020-06-20 05:55] LABS: BASOPHILS ABSOLUTE AUTO 0.01 K/mm3 (0.00-0.23); BASOPHILS PERCENT AUTO 0 % (0-2); EOSINOPHILS ABSOLUTE AUTO 0.07 K/mm3 (0.00-0.68); EOSINOPHILS PERCENT AUTO 1 % (0-6); Hematocrit 24.8 % (37.0-53.0); Hemoglobin 8.3 g/dL (13.5-17.5); IMMATURE GRAN ABSOLUTE AUTO 0.15 K/mm3 (0.00-0.10); IMMATURE GRAN PERCENT AUTO 1 % (0-1); LYMPHOCYTES ABSOLUTE AUTO 0.62 K/mm3 (0.84-5.20); LYMPHOCYTES PERCENT AUTO 5 % (21-46); MONOCYTES ABSOLUTE AUTO 0.85 K/mm3 (0.16-1.47); MONOCYTES PERCENT AUTO 6 % (4-13); Mean Corpuscular HGB 29.6 pg (26.0-34.0); Mean Corpuscular HGB Conc 33.5 g/dL (31.5-36.5); Mean Corpuscular Volume 89 fL (80-100); Mean Platelet Volume 10.4 fL (9.1-12.4); NEUTROPHILS ABSOLUTE AUTO 11.96 K/mm3 (1.96-9.15); NEUTROPHILS PERCENT AUTO 88 % (41-73); Platelet Count 261 K/mm3 (150-400); RDW Coefficient Variation 14.6 % (11.7-14.2); RDW Standard Deviation 46.9 fL (35.1-46.3); White Blood Cell Count 13.66 K/mm3 (4.00-11.30)
--- NOTE | 2020-06-20 06:20 | NUR ---
BEKAH SUMMARY AOX4. TELE ST @103. BP ELEVATED T/O NIGHT. HS BP @186/124, GAVE SCHEDULED NITRO PATCH, WHEN BP RECHECKED IT WAS 193/131 & PT REFUSED HYDRALAZINE @THIS TIME OR ANY OTHER MEDS EXCEPT PAIN MEDICATION. BP THIS AM @201/144, PT REFUSED HYDRALAZINE AGAIN & STATED HE WOULD ONLY TAKE HIS NIFEDIPINE, DISCUSSED c CHARGE NURSE MARQUISE GILBERT SINCE MED IS A SCHEDULED 0900 MED, GAVE MED EARLY & BP DECREASED TO 145/92 WHEN RECHECKED. REPORTS 09/29 BACK, LUNG & ALLOVER PAIN, STATES RELIEF c ALTERNATING IV FENANYL & PO ROXICODONE. PT FINISHED FIRST DOSE RITUXIMAB LAST NIGHT. HAS +2/3 PITTING EDEMA. PT REFUSES MANY MEDS & DOES NOT FOLLOW FLUID RESTRICTION, TAKES SELF TO VENDING MACHINE TO GET DRINKS & SNACKS. CALL LIGHT IN REACH & PT ABLE TO MAKE NEEDS KNOWN.
[2020-06-20 06:43] LABS: Albumin, Blood 2.5 g/dL (3.4-5.0); Anion Gap 13 mmol/L (6-16); Blood Urea Nitrogen 104 mg/dL (8-24); Bun/Creatinine Ratio 13.8 (12.0-20.0); CO2, Blood 24 mmol/L (21-32); Chloride, Blood 96 mmol/L (98-108); Creatinine, Blood 7.52 mg/dL (0.60-1.20); Glomerular Filtration Rate 9 (60-); Glucose, Blood 96 mg/dL (70-99); Magnesium, Blood 2.7 mg/dL (1.6-2.4); Potassium, Blood 5.2 mmol/L (3.5-5.5); Sodium, Blood 133 mmol/L (136-145)
[2020-06-20 06:51] LABS: Phosphorus, Blood 8.3 mg/dL (2.5-4.9)
[2020-06-20 07:09] LABS: ANTIGLOMERULAR BM AB 7 units (0-20)
[2020-06-20 14:10] LABS: ATYPICAL PANCA <1:20 titer (Neg:<1:20); PERINUCLEAR (P-ANCA) <1:20 titer (Neg:<1:20)
--- NOTE | 2020-06-20 15:33 | NUR ---
PT IS A/OX3, COOPERATIVE, THE PT IS UP IND IN HIS ROOM, THE PT WAS MEDICATED FOR PAIN T/O THE DAY , THE PT DECLINED TO CHANGE OUT THE ORDERED NITROGEN PASTE TODAY, PT DENIED HAVING ANY C/P OR SOB, THE PT DID NOT RECIEVE DIALYSIS TODAY PER DR. GATICA ORDER, PT WAS GIVEN LASIX, PT IS LIMITING FLUIDS TODAY, CALL LIGHT IN REACH, WILL CONTINUE TO MONITOR AND ASSESS FOR CHANGES
--- NOTE | 2020-06-20 17:29 | NUR ---
SUMMARY: Admit: / Met with Talat today, Dr Malik unsure for discharge ETA, he seems to be feeling better and eating. Says he has everything he needs for care at home. Will continue to follow his care until discharge. Still being seen by Dr Ogden. DR will be ordering out patient infusion weekly for 3 weeks, Rituximae. This order will need to go to infusion pharmacy just in case preauth is needed for future infusions. I will check on this . cp
--- NOTE | 2020-06-21 04:35 | NUR ---
SHIFT SUMMARY ASSUMED CARE OF PT AT 1900. PT IS A/OX4, PT IS VERY WITHDRAWN. HEART SOUNDS REGULAR, TELE SHOWS SINUS @ 95. LUNG SOUNDS CLEAR. PT BP WAS INCREASED THIS PM, MEDICATED WITH NITRO WITH LITTLE EFFECT. HYDRALAZINE GIVEN AND DECREASE SYSTOLIC FROM 190 TO 180. HOSPITALIST NOTIFED AND LABATOLO WAS GIVEN. PT WANTED TO REFUSEMEDICATION BUT WAS CONVINCED TO TAKE AFTER EDUCATION ABOUT DRUG AND ABOUT EFFECTS OF PROLONGED HIGH BP. PT C/O PAIN TWICE DURING THE SHIFT, MEDICATED PER EMAR. PT IS INDEPENDENT IN ROOM. PT TOOK WALK IN HOSPITAL THIS AM. CALL LIGHT IN REACH, BED IN LOWEST POSITON.
--- NOTE | 2020-06-21 09:24 | NUR ---
PT TAKEN TO DIALYSIS AT THIS TIME PT A/OX3, PT APPEARS TO BE BREATHING EASILY ON RA
[2020-06-21 09:36] LABS: BASOPHILS ABSOLUTE AUTO 0.01 K/mm3 (0.00-0.23); BASOPHILS PERCENT AUTO 0 % (0-2); EOSINOPHILS ABSOLUTE AUTO 0.26 K/mm3 (0.00-0.68); EOSINOPHILS PERCENT AUTO 2 % (0-6); Hematocrit 22.6 % (37.0-53.0); Hemoglobin 7.8 g/dL (13.5-17.5); IMMATURE GRAN ABSOLUTE AUTO 0.25 K/mm3 (0.00-0.10); IMMATURE GRAN PERCENT AUTO 2 % (0-1); LYMPHOCYTES ABSOLUTE AUTO 0.72 K/mm3 (0.84-5.20); LYMPHOCYTES PERCENT AUTO 5 % (21-46); MONOCYTES ABSOLUTE AUTO 0.99 K/mm3 (0.16-1.47); MONOCYTES PERCENT AUTO 6 % (4-13); Mean Corpuscular HGB 30.2 pg (26.0-34.0); Mean Corpuscular HGB Conc 34.5 g/dL (31.5-36.5); Mean Corpuscular Volume 88 fL (80-100); Mean Platelet Volume 10.1 fL (9.1-12.4); NEUTROPHILS PERCENT AUTO 86 % (41-73); Platelet Count 279 K/mm3 (150-400); RDW Coefficient Variation 14.6 % (11.7-14.2); RDW Standard Deviation 45.3 fL (35.1-46.3); Red Blood Cell Count 2.58 M/mm3 (4.30-5.90); White Blood Cell Count 15.73 K/mm3 (4.00-11.30)
[2020-06-21 10:27] LABS: Albumin, Blood 2.7 g/dL (3.4-5.0); Anion Gap 18 mmol/L (6-16); Blood Urea Nitrogen 147 mg/dL (8-24); Bun/Creatinine Ratio 14.9 (12.0-20.0); CO2, Blood 25 mmol/L (21-32); Calcium, Blood 9.2 mg/dL (8.5-10.1); Chloride, Blood 91 mmol/L (98-108); Creatinine, Blood 9.89 mg/dL (0.60-1.20); Glomerular Filtration Rate 6 (60-); Glucose, Blood 136 mg/dL (70-99); Phosphorus, Blood 9.5 mg/dL (2.5-4.9); Potassium, Blood 4.7 mmol/L (3.5-5.5); Sodium, Blood 134 mmol/L (136-145)
--- NOTE | 2020-06-21 11:27 | NUR ---
UNABLE TO OBTAIN BRISK ASPIRATION FROM EITHER [facility] CATHETER. [facility] ORDERED AND INSTILLED IN PORTS FOR 35 MIN DWELL. AFTER DWELL, ACTIVASE WAS ASPIRATED FROM BOTH PORTS BUT WHEN DIALYSIS INITIATED FLOW FROM EITHER PORT WAS INADEQUATE TO MAINTAIN > 200 ML/MIN QB. BLOOD RETURNED, DR GATICA CONSULTED VIA PHONE. PT IS REFUSING SURGICAL INTERVENTION AT THIS FACILITY. DR GATICA ORDERED BOTH PORTS RE-INSTILLED WITH [facility]IV[facility] FOR OVER NIGHT DWELL AND RE-ATTEMPT DIALYSIS ONCE AGAIN IN THE AM THURSDAY MORN ( TOMORROW ).
--- NOTE | 2020-06-21 18:06 | NUR ---
PT IS A/OX3, UP IND IN HIS ROOM, THE PT CAN BE IRRIATABLE AT TIMES TODAY HE GOT IRRTATED AND THREW HIS TELEMETRY BOX, T/O THE DAY HE UNPLUGGED HIS TELEMETRY BOX, THE PTS BP WAS ELEVATED T/O THE DAY, THE PT REFUSED TO TAKE THE ORDERED IV APRESOLINE AND LABATOLOL THAT WAS ORDERED PRN, STATED THAT BOTH MEDICATIONS MADE HIM FEEL ILL, THE PT WAS COMPLIANT WITH THE ORDERED PO MEDICATIONS HOWEVER, THE PT WAS SCHEDULED TO HAVE DIALYSIS TODAY UNFORTUNATLY HIS PERMA CATH WAS PLUGGED AND THEY WERE NOT ABLE TO GIVE DIALYSIS TODAY, PT WAS MOSTLY COOPERATIVE AND COMPLIANT OTHERWISE TODAY, PT WAS UP AMBULATING IN THE SAEZ AND SAT IN THE LOBBY FOR AWHILE TODAY, PT APPEARS TO BE BREATHING EASILY ON RA, THE PT WAS MEDICATED FOR PAIN T/O THE DAY, CALL LIGHT IN REACH WILL CONTINUE TO MONITOR AND ASSESS FOR CHANGES
--- NOTE | 2020-06-21 18:33 | NUR ---
06/21/[address] ROTH, MAY NEED TO STAY A FEW MORE DAYS, LOST DIALYSIS PORT TODAY. CP
--- NOTE | 2020-06-22 04:52 | NUR ---
SHIFT SUMMARY ASSUMED CARE OF PT AT 1900. PT IS A/OX4. INDEPENDENT IN ROOM. HEART SOUNDS REGULAR, LUNG SOUNDS CLEAR. PT BP REMAINS ELEVATED, ATTEMPTED TO IF LABATOLO BUT PT WAS RELUCTANT DUE TO GI UPSET SIDE EFFECT AND IT HAD NO EFFECT ON PT BP. PT WAS WONDERING IF INCREASEING HIS PROCARDIA MIGHT HELP HIM, BUT ALSO GETTING DIALYSIS HELPS. PT OFFERED ONCE TIME PO DOSE OF PROCARDIA BUT REFUSED DUE TO STOMACH UPSET. PT IS VERY WITHDRAWN AND HAS DIFFICULTLY LOOKING AT PEOPLE IN THE EYE. THIS NURSE FEELS PT IS HAVING A HARD TIME DEALING WITH THIS LIFE CHANGE. PT REFUSED LABS THIS AM AND ASKED FOR THEM TO BE DRAWN IN DIALYSIS. CALL LIGHT IN REACH, BED IN LOWEST POSITION.
[2020-06-22 10:21] LABS: BASOPHILS ABSOLUTE AUTO 0.02 K/mm3 (0.00-0.23); BASOPHILS PERCENT AUTO 0 % (0-2); EOSINOPHILS ABSOLUTE AUTO 0.15 K/mm3 (0.00-0.68); EOSINOPHILS PERCENT AUTO 1 % (0-6); Hematocrit 21.8 % (37.0-53.0); Hemoglobin 7.4 g/dL (13.5-17.5); IMMATURE GRAN ABSOLUTE AUTO 0.24 K/mm3 (0.00-0.10); IMMATURE GRAN PERCENT AUTO 2 % (0-1); LYMPHOCYTES ABSOLUTE AUTO 0.63 K/mm3 (0.84-5.20); LYMPHOCYTES PERCENT AUTO 4 % (21-46); MONOCYTES ABSOLUTE AUTO 1.03 K/mm3 (0.16-1.47); MONOCYTES PERCENT AUTO 7 % (4-13); Mean Corpuscular HGB Conc 33.9 g/dL (31.5-36.5); Mean Corpuscular Volume 88 fL (80-100); Mean Platelet Volume 10.4 fL (9.1-12.4); NEUTROPHILS ABSOLUTE AUTO 12.39 K/mm3 (1.96-9.15); NEUTROPHILS PERCENT AUTO 86 % (41-73); Platelet Count 298 K/mm3 (150-400); RDW Coefficient Variation 14.6 % (11.7-14.2); RDW Standard Deviation 46.8 fL (35.1-46.3); Red Blood Cell Count 2.47 M/mm3 (4.30-5.90); White Blood Cell Count 14.46 K/mm3 (4.00-11.30)
[2020-06-22 10:54] LABS: Magnesium, Blood 3.1 mg/dL (1.6-2.4)
[2020-06-22 11:09] LABS: Albumin, Blood 2.7 g/dL (3.4-5.0); Anion Gap 16 mmol/L (6-16); Blood Urea Nitrogen 179 mg/dL (8-24); CO2, Blood 23 mmol/L (21-32); Calcium, Blood 8.9 mg/dL (8.5-10.1); Chloride, Blood 93 mmol/L (98-108); Glomerular Filtration Rate 5 (60-); Glucose, Blood 119 mg/dL (70-99); Phosphorus, Blood 10.6 mg/dL (2.5-4.9); Potassium, Blood 5.6 mmol/L (3.5-5.5); Sodium, Blood 132 mmol/L (136-145)
--- NOTE | 2020-06-22 19:16 | NUR ---
SHIFT SUMMARY PATIENT ALERT AND ORIENTED THIS SHIFT. PATIENT INDEPENDENT IN THE ROOM. PATIENT DOWN TO DIALYSIS THIS AM. PATIENT STATES NAUSEA THIS AM, DENIES NEED FOR MEDICATIONS FOR IT. PATIENT REFUSED MUCH OF HIS MORNING MEDICATIONS. PATIENT SITTING UP IN THE ROOM FOR MUCH OF THIS SHIFT, WALKING IN THE HALLS THIS AFTERNOON. PATIENT REQUESTING FLUIDS PAST HIS 1000 ML FLUID RESTRICTION. PATIENT CURRENTLY SITTING UP IN BED.
--- NOTE | 2020-06-23 05:41 | NUR ---
SHIFT SUMMARY PATIENT ALERT AND ORIENTED. MEDICATED PER EMAR FOR PAIN NEEDED. PATIENT CONTINUES TO HAVE NOTABLE HYPERTENSION WITH HIS HIGHEST BLOOD PRESSURE BEING 206/140. PATIENT WAS MEDICATED WITH 20 MG IV LABETALOL AND WAS EFFECTIVE IN BRINGING HIS BLOOD PRESSURE DOWN TO 178/126. PATIENT HAD TO BE REMINDED OF HOSPITAL POLICY THAT HE IS UNABLE TO LEAVE THE UNIT HE WAS SEEN BY THIS RN RETURNING TO HIS ROOM WITH ITEMS FROM THE VENDING MACHINES IN THE CAFETERIA. IV PATENT AND FLUSHED. BED IN LOWEST POSITION WITH WHEELS LOCKED. CALL LIGHT WITHIN REACH. REPORT GIVEN TO ONCOMING RN.
[2020-06-23 10:02] LABS: Hematocrit 22.3 % (37.0-53.0); Hemoglobin 7.3 g/dL (13.5-17.5)
[2020-06-23 10:37] LABS: Albumin, Blood 2.8 g/dL (3.4-5.0); Anion Gap 11 mmol/L (6-16); Blood Urea Nitrogen 120 mg/dL (8-24); Bun/Creatinine Ratio 13.9 (12.0-20.0); CO2, Blood 24 mmol/L (21-32); Chloride, Blood 99 mmol/L (98-108); Creatinine, Blood 8.62 mg/dL (0.60-1.20); Glomerular Filtration Rate 7 (60-); Glucose, Blood 129 mg/dL (70-99); Phosphorus, Blood 8.9 mg/dL (2.5-4.9); Sodium, Blood 134 mmol/L (136-145)
[2020-06-23] MEDS ORDERED: Prednisone10 MG PO (10:43)
--- NOTE | 2020-06-23 12:08 | NUR ---
TALKED TO DR. CASTANEDA ABOUT CREAT OF 8.62 AND PHOSPORUS OF 8.9. BOTH TRENDING DOWN. PER HE ALREADY RAN IT BY WHO IS OK WITH PATIENT GOING HOME AND FOLLOWING UP WITH OUT PATIENT DIALYSIS. WCTM
--- NOTE | 2020-06-23 13:18 | NUR ---
REFUSES MEDS FOR BLOOD PRESSURE. "MY BLOOD PRESSURE IS FINE." NITRO PASTE HELD.
--- NOTE | 2020-06-23 14:01 | NUR ---
REVIEW D'C. AWARE NEEDS TO MAKE 3 APPT-DIALYSIS, PCP AND . REVIEW MEDS, HOW AND WHEN TO TAKE. IV D'C WITH NO SIGNS OF SWELLING OR BRUISING. ANSWER ALL QUESTIONS. PATIENT VERBALIZES UNDERSTANDING. IN W/C TO SECOND FLOOR WAITING ROOM. STS FRIEND ON WAY. STEADY GAIT TO CHAIR.
--- NOTE | 2020-06-25 10:56 | NUR ---
ADMIT: 06/16/20 DISCHARGE: 06/23/20 DX: hypertensive emergency CC: cpeabody. PAO CALL: Call Talat at home for pao. DR Antunez specifies [facility] for follow up This week. cp RESIDENCE: HOME WITH BROTHER AND SISTERINLAW CAREGIVER: self DX: Depressive disorder, HTN, pulmonary edema, sleep apnea, see list DME: Nebulizer and equipment CCM: None HOME HEALTH: None SUMMARY: Admit: 06/16/20 06/23/20 continue Dialysis, m w f and CONTINUE PLAN FOR RITUXAN INFUSION WEEKLY FOR 3 MORE WEEKS, can be completed with Dialysis. No care needs identified prior to discharge. cp EFM follow up within a WEEK with PCP or PAO physician. cp
[2020-09-30] MEDS ORDERED: CLON.1 PO (15:40)
[2020-10-10] MEDS ORDERED: CLINGEL TOP (10:35)
[2020-10-10] MEDS ORDERED: DICLOFENAC SOD100 G1 TOP (10:36)
[2020-10-10] MEDS ORDERED: OXYC10TA19 PO (10:36)
== END 2020-06-23 14:36 | disposition home or self-care (01) | DRG 542 ==
LOC: ER 18:02 → PCU 18:03 → MEDS 06-17 13:31
PROVIDERS: Family Medicine; Internal Medicine Nephrology; Pharmacist; Physician Assistant; ADMIT Family Medicine
DX: M31.30 Wegener's granulomatosis without renal involvement (principal); N18.6 End stage renal disease; J96.91 Respiratory failure, unspecified with hypoxia; I50.23 Acute on chronic systolic (congestive) heart failure; R65.20 Severe sepsis without septic shock; N25.81 Secondary hyperparathyroidism of renal origin; E87.1 Hypo-osmolality and hyponatremia; I13.2 Hypertensive heart and chronic kidney disease with heart failure and with stage 5 chronic kidney disease, or end stage renal disease; I16.1 Hypertensive emergency; R04.2 Hemoptysis; I24.8 Other forms of acute ischemic heart disease; J67.9 Hypersensitivity pneumonitis due to unspecified organic dust; Z20.822 Contact with and (suspected) exposure to COVID-19; D63.1 Anemia in chronic kidney disease; E87.6 Hypokalemia; E87.5 Hyperkalemia; I77.6 Arteritis, unspecified; L98.499 Non-pressure chronic ulcer of skin of other sites with unspecified severity; F10.20 Alcohol dependence, uncomplicated; F17.200 Nicotine dependence, unspecified, uncomplicated; K21.9 Gastro-esophageal reflux disease without esophagitis; S22.42XD Multiple fractures of ribs, left side, subsequent encounter for fracture with routine healing; Z86.14 Personal history of Methicillin resistant Staphylococcus aureus infection; Z98.1 Arthrodesis status; Z99.2 Dependence on renal dialysis; Z79.899 Other long term (current) drug therapy
CPT/HCPCS: 36415; 36430; 36593; 71046; 71250; 80048; 80053; 80069; 80202; 82607; 82728; 82746; 83516; 83540; 83550; 83605; 83735; 83880; 84145; 84484; 85014; 85018; 85025; 85379; 85610; 85730; 86038; 86256; 86850; 86870; 86900; 86901; 86902; 86922; 87040; 87070; 87205; 93005; 93010; 96365; 96375; 96376; 99285-25; A9270; G0378; J0360; J0692; J0881; J2930; J2997; J3010; J3370; J7040; J7050; J7512; P9016; Q5115

== ENCOUNTER 2020-06-29 20:29 | Inpatient (IN) | payer MEDICARE, OTHER ==
[~2020-06-29] VITALS: Ht 182.9 cm; Wt 76.6 kg
[~2020-06-29 20:29] MED LIST changes: +OXAYDO5 M1 PO; -OXYC10TA19 PO; +Prednisone10 MG PO
[2020-06-29 21:43] LABS: BASOPHILS ABSOLUTE AUTO 0.02 K/mm3 (0.00-0.23); BASOPHILS PERCENT AUTO 0 % (0-2); EOSINOPHILS ABSOLUTE AUTO 0.13 K/mm3 (0.00-0.68); EOSINOPHILS PERCENT AUTO 1 % (0-6); Hematocrit 21.2 % (37.0-53.0); Hemoglobin 7.1 g/dL (13.5-17.5); IMMATURE GRAN ABSOLUTE AUTO 0.13 K/mm3 (0.00-0.10); IMMATURE GRAN PERCENT AUTO 1 % (0-1); LYMPHOCYTES ABSOLUTE AUTO 0.55 K/mm3 (0.84-5.20); LYMPHOCYTES PERCENT AUTO 3 % (21-46); MONOCYTES ABSOLUTE AUTO 0.91 K/mm3 (0.16-1.47); MONOCYTES PERCENT AUTO 4 % (4-13); Mean Corpuscular HGB 30.6 pg (26.0-34.0); Mean Corpuscular HGB Conc 33.5 g/dL (31.5-36.5); Mean Corpuscular Volume 91 fL (80-100); Mean Platelet Volume 10.2 fL (9.1-12.4); NEUTROPHILS ABSOLUTE AUTO 20.37 K/mm3 (1.96-9.15); NEUTROPHILS PERCENT AUTO 92 % (41-73); Platelet Count 318 K/mm3 (150-400); RDW Coefficient Variation 15.8 % (11.7-14.2); RDW Standard Deviation 51.3 fL (35.1-46.3); Red Blood Cell Count 2.32 M/mm3 (4.30-5.90); White Blood Cell Count 22.11 K/mm3 (4.00-11.30)
[2020-06-29 22:09] LABS: Albumin, Blood 2.7 g/dL (3.4-5.0); Albumin/Globulin Ratio 0.7 (0.8-1.8); Bilirubin, Total 1.6 mg/dL (0.1-1.0); Bun/Creatinine Ratio 9.3 (12.0-20.0); Calcium, Blood 8.5 mg/dL (8.5-10.1); Creatinine, Blood 3.97 mg/dL (0.60-1.20); Globulin, Blood 3.8 g/dL (2.2-4.0); Total Protein, Blood 6.5 g/dL (6.4-8.2)
--- NOTE | 2020-06-30 06:42 | NUR ---
SHIFT SUMMARY RECEIVED PT A 0605. PT IS RECEIVING 1 UNIT PRBC. PT RECEIVED A POWERGLIDE DUE TO NOT BEING ABLE TO TOLERATE BLOOD IN SMALLER IVS. PT IS A/OX4. INDEPENDENT IN ROOM. DR GATICA SAW PT AT 0645. SAID TO GIVE PT ANOTHER UNIT IS DIALYSIS. DIALYSIS NURSE NOTIFIED. CALL LIGHT IN REACH, BED IN LOWEST POSTION.
--- NOTE | 2020-06-30 17:11 | NUR ---
SHIFT SUMMARY- PT IS A/O, PLESANT AND COOPERATIVE. HE IS EATING AND DRINKING WELL. RECIEVING PAIN MEDICATIONS NEEDED. HE WAS RECIEVING A BLOOD TRANSFUSION AT SHIFT CHANGE AND RECIEVED ANOTHER WHEN HE WENT FOR DIALYSIS. HE IS EATING AND DRINKING WELL. HE IS INDEPENDENT IN THE ROOM. HIS BED IS IN THE LOW POSITION AND CALL LIGHT IS WITIN REACH.
[2020-07-01 04:29] LABS: BASOPHILS ABSOLUTE AUTO 0.02 K/mm3 (0.00-0.23); BASOPHILS PERCENT AUTO 0 % (0-2); EOSINOPHILS ABSOLUTE AUTO 0.38 K/mm3 (0.00-0.68); EOSINOPHILS PERCENT AUTO 2 % (0-6); Hematocrit 23.8 % (37.0-53.0); Hemoglobin 7.8 g/dL (13.5-17.5); IMMATURE GRAN PERCENT AUTO 1 % (0-1); LYMPHOCYTES ABSOLUTE AUTO 0.73 K/mm3 (0.84-5.20); LYMPHOCYTES PERCENT AUTO 4 % (21-46); MONOCYTES ABSOLUTE AUTO 0.69 K/mm3 (0.16-1.47); MONOCYTES PERCENT AUTO 4 % (4-13); Mean Corpuscular HGB 30.6 pg (26.0-34.0); Mean Corpuscular HGB Conc 32.8 g/dL (31.5-36.5); Mean Corpuscular Volume 93 fL (80-100); Mean Platelet Volume 10.5 fL (9.1-12.4); NEUTROPHILS ABSOLUTE AUTO 16.27 K/mm3 (1.96-9.15); NEUTROPHILS PERCENT AUTO 90 % (41-73); Platelet Count 244 K/mm3 (150-400); RDW Coefficient Variation 16.5 % (11.7-14.2); RDW Standard Deviation 54.4 fL (35.1-46.3); Red Blood Cell Count 2.55 M/mm3 (4.30-5.90); White Blood Cell Count 18.19 K/mm3 (4.00-11.30)
[2020-07-01 04:49] LABS: Albumin, Blood 2.4 g/dL (3.4-5.0); Albumin/Globulin Ratio 0.7 (0.8-1.8); Bilirubin, Total 1.2 mg/dL (0.1-1.0); Calcium, Blood 8.2 mg/dL (8.5-10.1); Creatinine, Blood 5.1 mg/dL (0.60-1.20); Globulin, Blood 3.3 g/dL (2.2-4.0); Magnesium, Blood 2.1 mg/dL (1.6-2.4); Phosphorus, Blood 4.9 mg/dL (2.5-4.9); Potassium, Blood 4.6 mmol/L (3.5-5.5); Total Protein, Blood 5.7 g/dL (6.4-8.2)
--- NOTE | 2020-07-01 04:52 | NUR ---
SHIFT SUMMARY ASSUMED CARE OF PT AT 1900. PT IS A/OX4. HEART SOUNDS REGULAR, TLELE SHOWS SINUS. LUNG SOUNDS DIMINMISHED. PT IS INDEPENDENT TO BATHROOM. PT C/O PAIN, MEDICATED PER EMAR. PT C/O HIS LEGS WELLING, PT FELL ASLEEP SITTING UP WHICH MADE THIS WORSE. PT BLOOD PRESSURE CONTINUES TO BE INCREASED BUT REFUSED MORE BP MEDICATED DUE TO THEM MAKING HIS STOMACH HURT. CALL LIGHT IN REACH, BED IN LOWEST POSITION.
--- NOTE | 2020-07-01 17:34 | NUR ---
SHIFT SUMMARY- PT IS A/O, PLESANT AND COOPERATIVE. HE IS EATING AND DRINKING WELL. HIS BLOOD PRESSURES WERE ELEVATED MOST OF THIS SHIFT. PT WAS REFUSING PRN BP MEDICATIONS THEY ARE NOT EFFECTIVE FOR HIM. CALL DR. GATICA AND GOT HIS PROCARDIA BACK ON HIS MAY. BP IMPROVED AFTER DOSE WAS GIVEN. HE IS INDEPENDENT IN THE ROOM. HIS BED IS IN THE LOW POSITON AND CALL LIGHT IS WITHIN REACH.
--- NOTE | 2020-07-01 20:26 | NUR ---
SHIFT SUMMARY PT WAS GIVEN DISCHARGE INSTRUCTIONS. PT EDUCATED ABOUT EDEMA AND ABOUT CURRENT MEDICATION REGIEME. PT VERBALIZED UNDERSTANDING. PT LEFT MEDICAL FLOOR AT 2007.
== END 2020-07-01 20:08 | disposition home or self-care (01) | DRG 291 ==
LOC: ER 20:29 → MEDS 20:32 → ER 06-30 05:34 → MEDS 06-30 05:34
PROVIDERS: Physician Assistant; ADMIT Internal Medicine
PROC: 5A1D70Z Performance of Urinary Filtration, Intermittent, Less than 6 Hours Per Day (ICD-10-PCS; principal; 2020-07-01)
PROC: 30233N1 Transfusion of Nonautologous Red Blood Cells into Peripheral Vein, Percutaneous Approach (ICD-10-PCS; 2020-07-01)
DX: I13.2 Hypertensive heart and chronic kidney disease with heart failure and with stage 5 chronic kidney disease, or end stage renal disease (principal); N18.6 End stage renal disease; I50.23 Acute on chronic systolic (congestive) heart failure; J96.00 Acute respiratory failure, unspecified whether with hypoxia or hypercapnia; N25.81 Secondary hyperparathyroidism of renal origin; M31.31 Wegener's granulomatosis with renal involvement; I16.1 Hypertensive emergency; F17.220 Nicotine dependence, chewing tobacco, uncomplicated; D63.1 Anemia in chronic kidney disease; G89.29 Other chronic pain; K21.9 Gastro-esophageal reflux disease without esophagitis; I16.0 Hypertensive urgency; T38.0X5A Adverse effect of glucocorticoids and synthetic analogues, initial encounter; D72.829 Elevated white blood cell count, unspecified; F41.9 Anxiety disorder, unspecified; Z98.1 Arthrodesis status; Z99.2 Dependence on renal dialysis; Z79.899 Other long term (current) drug therapy; Z79.52 Long term (current) use of systemic steroids; Z86.14 Personal history of Methicillin resistant Staphylococcus aureus infection; Z91.11 Patient's noncompliance with dietary regimen
CPT/HCPCS: 36415; 36430; 71045; 74176; 76705; 80053; 83605; 83690; 83735; 84100; 85025; 86850; 86870; 86900; 86901; 86920; 96372; 96374; 96375; 96376; 99285-25; A9270; C1751; G0378; J0360; J0881; J1170; J1650; J2405; J3010; J7030; J7512; P9016

== ENCOUNTER 2020-07-08 16:15 | Emergency (ER) | payer MEDICARE, OTHER ==
[~2020-07-08] VITALS: Ht 182.9 cm; Wt 70.3 kg
[2020-07-08 16:53] LABS: BASOPHILS ABSOLUTE AUTO 0.01 K/mm3 (0.00-0.23); BASOPHILS PERCENT AUTO 0 % (0-2); EOSINOPHILS ABSOLUTE AUTO 0.12 K/mm3 (0.00-0.68); EOSINOPHILS PERCENT AUTO 1 % (0-6); Hematocrit 25.3 % (37.0-53.0); Hemoglobin 8.4 g/dL (13.5-17.5); IMMATURE GRAN ABSOLUTE AUTO 0.05 K/mm3 (0.00-0.10); IMMATURE GRAN PERCENT AUTO 0 % (0-1); LYMPHOCYTES ABSOLUTE AUTO 0.35 K/mm3 (0.84-5.20); LYMPHOCYTES PERCENT AUTO 3 % (21-46); MONOCYTES PERCENT AUTO 6 % (4-13); Mean Corpuscular HGB 29.8 pg (26.0-34.0); Mean Corpuscular HGB Conc 33.2 g/dL (31.5-36.5); Mean Corpuscular Volume 90 fL (80-100); Mean Platelet Volume 10.8 fL (9.1-12.4); NEUTROPHILS ABSOLUTE AUTO 11.04 K/mm3 (1.96-9.15); NEUTROPHILS PERCENT AUTO 90 % (41-73); Platelet Count 193 K/mm3 (150-400); RDW Coefficient Variation 15.4 % (11.7-14.2); Red Blood Cell Count 2.82 M/mm3 (4.30-5.90); White Blood Cell Count 12.27 K/mm3 (4.00-11.30)
[2020-07-08 17:21] LABS: Albumin, Blood 2.5 g/dL (3.4-5.0); Albumin/Globulin Ratio 0.7 (0.8-1.8); Bilirubin, Total 1.2 mg/dL (0.1-1.0); Bun/Creatinine Ratio 14.5 (12.0-20.0); Calcium, Blood 8.8 mg/dL (8.5-10.1); Creatinine, Blood 7.39 mg/dL (0.60-1.20); Globulin, Blood 3.6 g/dL (2.2-4.0); Potassium, Blood 5.6 mmol/L (3.5-5.5); Total Protein, Blood 6.1 g/dL (6.4-8.2)
[2020-07-08] MEDS ORDERED: Vibramycin100 MG PO (21:18)
== END 2020-07-08 21:41 | disposition home or self-care (01) ==
LOC: ER 16:15
PROVIDERS: Emergency Medicine
DX: E87.70 Fluid overload, unspecified (principal); R60.0 Localized edema; I12.0 Hypertensive chronic kidney disease with stage 5 chronic kidney disease or end stage renal disease; N18.6 End stage renal disease; K21.9 Gastro-esophageal reflux disease without esophagitis; N18.9 Chronic kidney disease, unspecified; F17.220 Nicotine dependence, chewing tobacco, uncomplicated; Z79.899 Other long term (current) drug therapy
CPT/HCPCS: 36415; 74177; 76870; 80053; 83690; 85025; 93005; 93010; 96374-59; 96375; 96376; 99285-25; A9270; J1170; J2270; J2405; Q9967

== ENCOUNTER → 2020-07-16 | Outpatient (CLI) | payer MEDICARE, OTHER ==
[~2020-07-16] MED LIST changes: +Vibramycin100 MG PO
[2020-07-16 15:33] LABS: BASOPHILS ABSOLUTE AUTO 0.02 K/mm3 (0.00-0.23); BASOPHILS PERCENT AUTO 0 % (0-2); EOSINOPHILS ABSOLUTE AUTO 0.26 K/mm3 (0.00-0.68); EOSINOPHILS PERCENT AUTO 2 % (0-6); Hematocrit 24.8 % (37.0-53.0); Hemoglobin 7.7 g/dL (13.5-17.5); IMMATURE GRAN PERCENT AUTO 1 % (0-1); LYMPHOCYTES ABSOLUTE AUTO 0.66 K/mm3 (0.84-5.20); LYMPHOCYTES PERCENT AUTO 5 % (21-46); MONOCYTES ABSOLUTE AUTO 0.91 K/mm3 (0.16-1.47); MONOCYTES PERCENT AUTO 7 % (4-13); Mean Corpuscular HGB 28.8 pg (26.0-34.0); Mean Corpuscular Volume 93 fL (80-100); NEUTROPHILS ABSOLUTE AUTO 11.92 K/mm3 (1.96-9.15); NEUTROPHILS PERCENT AUTO 86 % (41-73); Platelet Count 294 K/mm3 (150-400); RDW Coefficient Variation 15.9 % (11.7-14.2); RDW Standard Deviation 54.4 fL (35.1-46.3); Red Blood Cell Count 2.67 M/mm3 (4.30-5.90); White Blood Cell Count 13.87 K/mm3 (4.00-11.30)
[2020-07-16 16:15] LABS: Albumin, Blood 2.8 g/dL (3.4-5.0); Albumin/Globulin Ratio 0.9 (0.8-1.8); Bilirubin, Total 0.7 mg/dL (0.1-1.0); Calcium, Blood 8.5 mg/dL (8.5-10.1); Globulin, Blood 3.1 g/dL (2.2-4.0); Potassium, Blood 5.1 mmol/L (3.5-5.5); Total Protein, Blood 5.9 g/dL (6.4-8.2)
[2020-07-16 16:19] LABS: Bun/Creatinine Ratio 12.4 (12.0-20.0); Creatinine, Blood 8.31 mg/dL (0.60-1.20)
== END | disposition home or self-care (01) ==
LOC: LAB SHORT 09:00
PROVIDERS: Internal Medicine Hematology & Oncology
DX: D64.9 Anemia, unspecified (principal)
CPT/HCPCS: 80053; 84100; 85025

== ENCOUNTER 2020-08-08 06:47 | Emergency (ER) | payer MEDICARE, OTHER ==
[~2020-08-08] VITALS: Ht 180.3 cm; Wt 70.3 kg
[~2020-08-08 06:47] MED LIST changes: -OXAYDO5 M1 PO; +OXYC10TA19 PO
[2020-08-08] MEDS ORDERED: CATAPRES0.1 MG PO (07:10)
[2020-08-08] MEDS ORDERED: NITR.4SL SL (07:11)
[2020-08-08 07:54] LABS: BASOPHILS ABSOLUTE AUTO 0.05 K/mm3 (0.00-0.23); BASOPHILS PERCENT AUTO 0 % (0-2); EOSINOPHILS ABSOLUTE AUTO 0.56 K/mm3 (0.00-0.68); EOSINOPHILS PERCENT AUTO 4 % (0-6); Hematocrit 23.7 % (37.0-53.0); Hemoglobin 7.2 g/dL (13.5-17.5); IMMATURE GRAN ABSOLUTE AUTO 0.11 K/mm3 (0.00-0.10); IMMATURE GRAN PERCENT AUTO 1 % (0-1); LYMPHOCYTES ABSOLUTE AUTO 0.57 K/mm3 (0.84-5.20); LYMPHOCYTES PERCENT AUTO 4 % (21-46); MONOCYTES ABSOLUTE AUTO 0.83 K/mm3 (0.16-1.47); MONOCYTES PERCENT AUTO 5 % (4-13); Mean Corpuscular HGB 28.3 pg (26.0-34.0); Mean Corpuscular HGB Conc 30.4 g/dL (31.5-36.5); Mean Corpuscular Volume 93 fL (80-100); Mean Platelet Volume 10.1 fL (9.1-12.4); NEUTROPHILS ABSOLUTE AUTO 14.08 K/mm3 (1.96-9.15); NEUTROPHILS PERCENT AUTO 87 % (41-73); Platelet Count 231 K/mm3 (150-400); RDW Coefficient Variation 17.5 % (11.7-14.2); RDW Standard Deviation 59.7 fL (35.1-46.3); Red Blood Cell Count 2.54 M/mm3 (4.30-5.90)
[2020-08-08 08:24] LABS: Albumin, Blood 2.5 g/dL (3.4-5.0); Albumin/Globulin Ratio 0.7 (0.8-1.8); Bilirubin, Total 0.6 mg/dL (0.1-1.0); Bun/Creatinine Ratio 10.9 (12.0-20.0); Calcium, Blood 8.6 mg/dL (8.5-10.1); Creatinine, Blood 7.23 mg/dL (0.60-1.20); Globulin, Blood 3.8 g/dL (2.2-4.0); Potassium, Blood 4.6 mmol/L (3.5-5.5); Total Protein, Blood 6.3 g/dL (6.4-8.2)
[2020-09-30] MEDS ORDERED: CLON.1 PO (15:40)
[2020-10-10] MEDS ORDERED: CLINGEL TOP (10:35)
[2020-10-10] MEDS ORDERED: OXYC10TA19 PO (10:36)
[2020-10-10] MEDS ORDERED: DICLOFENAC SOD100 G1 TOP (10:36)
== END 2020-08-08 12:23 | disposition home or self-care (01) ==
LOC: ER 06:47
PROVIDERS: Emergency Medicine
DX: M31.31 Wegener's granulomatosis with renal involvement (principal); I12.0 Hypertensive chronic kidney disease with stage 5 chronic kidney disease or end stage renal disease; N18.6 End stage renal disease; F17.220 Nicotine dependence, chewing tobacco, uncomplicated; Z99.2 Dependence on renal dialysis; Z79.899 Other long term (current) drug therapy
CPT/HCPCS: 36415; 71045; 80053; 85025; 96374; 96375; 99285-25; A9270; J0360; J1170; J2930; J7030

== ENCOUNTER 2020-08-14 23:33 | Inpatient (IN) | payer MEDICARE, OTHER ==
[~2020-08-14] VITALS: Ht 182.9 cm; Wt 70.1 kg
[~2020-08-14 23:33] MED LIST changes: +CATAPRES0.1 MG PO; +NITR.4SL SL
[2020-08-15 00:29] LABS: BASOPHILS ABSOLUTE AUTO 0.03 K/mm3 (0.00-0.23); BASOPHILS PERCENT AUTO 0 % (0-2); EOSINOPHILS ABSOLUTE AUTO 0.04 K/mm3 (0.00-0.68); EOSINOPHILS PERCENT AUTO 0 % (0-6); Hemoglobin 6.9 g/dL (13.5-17.5); IMMATURE GRAN ABSOLUTE AUTO 0.09 K/mm3 (0.00-0.10); IMMATURE GRAN PERCENT AUTO 1 % (0-1); LYMPHOCYTES PERCENT AUTO 2 % (21-46); MONOCYTES ABSOLUTE AUTO 0.73 K/mm3 (0.16-1.47); MONOCYTES PERCENT AUTO 5 % (4-13); Mean Corpuscular HGB 29.1 pg (26.0-34.0); Mean Corpuscular HGB Conc 31.4 g/dL (31.5-36.5); Mean Corpuscular Volume 93 fL (80-100); Mean Platelet Volume 10.7 fL (9.1-12.4); NEUTROPHILS ABSOLUTE AUTO 14.63 K/mm3 (1.96-9.15); NEUTROPHILS PERCENT AUTO 92 % (41-73); Platelet Count 385 K/mm3 (150-400); RDW Coefficient Variation 18.4 % (11.7-14.2); RDW Standard Deviation 59.4 fL (35.1-46.3); Red Blood Cell Count 2.37 M/mm3 (4.30-5.90); White Blood Cell Count 15.82 K/mm3 (4.00-11.30)
[2020-08-15 00:46] LABS: International Normalized Ratio 1.43; Prothrombin Time Results 15.1 Sec (9.7-11.5)
[2020-08-15 00:50] LABS: Albumin, Blood 2.5 g/dL (3.4-5.0); Albumin/Globulin Ratio 0.7 (0.8-1.8); Bilirubin, Total 0.8 mg/dL (0.1-1.0); Bun/Creatinine Ratio 13.7 (12.0-20.0); Calcium, Blood 8.9 mg/dL (8.5-10.1); Creatinine, Blood 7.45 mg/dL (0.60-1.20); Globulin, Blood 3.6 g/dL (2.2-4.0); Total Protein, Blood 6.1 g/dL (6.4-8.2)
--- NOTE | 2020-08-15 03:30 | NUR ---
RECEIVED REPORT FROM AMAURYED RN. PT TRANSPORTED TO MEDICAL FLOOR VIA GURNEY, AMBULATED TO BED WITH ASSIST OF 1. VS TAKEN, HYPERTENSIVE, OTHER VS WNL; BP'S IMPROVING FROM PREVIOUS RESULTS. ORIENTED TO ROOM/UNIT. NO OTHER ACUTE NEEDS ASSESSED AT THIS TIME. CALL LIGHT, POSSESSIONS IN REACH, BED IN LOW POSITION. WILL CONTINUE TO PROVIDE CARE UNTIL REPORT GIVEN TO ONCOMING RN.
[2020-08-15] MEDS ORDERED: METO25ER PO (03:57)
[2020-08-15] MEDS ORDERED: ADALAT CC60 M1 PO (03:58)
[2020-08-15] MEDS ORDERED: MIRALAX17 GM PO (03:59)
[2020-08-15] MEDS ORDERED: BACTRIM DS TAB1 EAC6 PO (04:03)
--- NOTE | 2020-08-15 06:40 | NUR ---
SPOKE TO DR. RAI REGARDING PT'S ONGOING PAIN, AND PT STATING THAT HIS OXYCODONE DOSE THAT HE TAKES AT HOME WOULD UPSET HIS STOMACH. ORDERS RECEIVED.
--- NOTE | 2020-08-15 07:51 | NUR ---
PER PLANER MILL GRADER, PT REFUSED CBG THIS MORNING.
[2020-08-15 09:58] LABS: Bun/Creatinine Ratio 13.8 (12.0-20.0); Calcium, Blood 9.2 mg/dL (8.5-10.1); Creatinine, Blood 7.91 mg/dL (0.60-1.20); Potassium, Blood 5.1 mmol/L (3.5-5.5)
[2020-08-15 12:47] LABS: Hematocrit 33.1 % (37.0-53.0); Hemoglobin 10.8 g/dL (13.5-17.5); Mean Corpuscular HGB 29.7 pg (26.0-34.0); Mean Corpuscular HGB Conc 32.6 g/dL (31.5-36.5); Mean Corpuscular Volume 91 fL (80-100); Mean Platelet Volume 10.4 fL (9.1-12.4); Platelet Count 403 K/mm3 (150-400); RDW Coefficient Variation 17.2 % (11.7-14.2); RDW Standard Deviation 52.5 fL (35.1-46.3); Red Blood Cell Count 3.64 M/mm3 (4.30-5.90); White Blood Cell Count 14.73 K/mm3 (4.00-11.30)
[2020-08-15] MEDS ORDERED: Catapres0.2 MG PO (18:12)
--- NOTE | 2020-08-15 18:19 | NUR ---
SHIFT SUMMARY PT ALERT AND INDEPENDENT IN THE ROOM. BP'S ELAVATED ALL DAY; DR AWARE. PT RECEIVING BP MEDS; CALLED THE DR THIS LATE AFTERNOON FOR BP CONCERNS; STARTED THE NIPEDIFINE TODAY INSTEAD OF TOMORROW; PT MEDICATED FOR PAIN. PT STILL COUGHING UP SOME BLOOD. PT HAD CT TODAY. BED IS IN THE LOWEST POSITION AND CALL LIGHT WITHIN REACH
--- NOTE | 2020-08-16 07:19 | NUR ---
Patient slept most of the evening with exception of waking twice for pain meds and once accompanied by iv zofram. Talat is alert and oriented and independent in room. ankles and feet are equal with 3+ edema. 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 Patient will only take IV dilaudid for pain as he states Oxycodone upsets his stomach
--- NOTE | 2020-08-16 18:32 | NUR ---
SHIFT SUMMARY PT ALERT AND VERY PAINFUL; MEDICATED PER EMAR WITH DILAUDID. PT ALSO RECEIVED STOOL SOFTENER PRN. PT STILL NEEDS SPUTUM SAMPLE PER PULMUNOLOGIST. PT C.O OF HEARTBURN; MEDICATED X1. DENIES ANY CP. PT STILL COUGHING THICK SPUTUM WITH BLOOD TINGED/STRIKE. VSS. BED IS IN THE LOWEST POSITION AND CALL LIGHT WITHIN REACH
[2020-08-17 04:27] LABS: Hematocrit 27.9 % (37.0-53.0)
[2020-08-17 04:46] LABS: Albumin, Blood 2.6 g/dL (3.4-5.0); Anion Gap 9 mmol/L (6-16); Blood Urea Nitrogen 70 mg/dL (8-24); Bun/Creatinine Ratio 11.1 (12.0-20.0); CO2, Blood 29 mmol/L (21-32); Calcium, Blood 8.9 mg/dL (8.5-10.1); Chloride, Blood 93 mmol/L (98-108); Creatinine, Blood 6.31 mg/dL (0.60-1.20); Glomerular Filtration Rate 11 (60-); Glucose, Blood 145 mg/dL (70-99); Magnesium, Blood 2.2 mg/dL (1.6-2.4); Potassium, Blood 4.2 mmol/L (3.5-5.5); Sodium, Blood 131 mmol/L (136-145)
--- NOTE | 2020-08-17 05:55 | NUR ---
SHIFT SUMMARY PT CONTINUES TO HAVE PAIN IN ABD AND RIGHT RIBS. REQUIRING PAIN MEDICATION APPROX EVERY 4 HOURS. PT ALSO COMPLAINED OF NAUSEA EARLY IN SHIFT, MEDICATED X 1 WITH ZOFRAN. SEVERE 3-4+ PITTING EDEMA TO BLE'S FROM THE KNEES DOWN. PERMACATH TO LEFT CHEST WALL. SPUTUM SAMPLE SENT X 2 FIRST WAS NOT ADEQUATE. AWAITING RESULTS. OTHERWISE BRENNA CUTE CHANGES THIS SHIFT. VITAL SIGNS STABLE. WILL CONTINUE TO MONITOR.
--- NOTE | 2020-08-17 07:30 | NUR ---
ASSUMED CARE: PT RESTING IN BED, TALKING TO STAFF DURING BEDSIDE REPORT. NO ACUTE NEEDS OR CONCERNS AT THIS TIME.
--- NOTE | 2020-08-17 09:50 | NUR ---
DR FRANKS AT BEDSIDE, AWARE THAT PT HAD DIASTOLIC HYPERTENSION LAST PM. DR STATES HE WILL REVIEW PT'S CHART.
--- NOTE | 2020-08-17 10:01 | NUR ---
PT TAKEN TO DIALYSIS VIA BED BY BUSINESS DEVELOPMENT INTERN STAFF AT THIS TIME
--- NOTE | 2020-08-17 16:29 | NUR ---
CALL TO DR FRANKS REGARDING PT'S BLOOD PRESSURES. WHILE AWAITING CALL BACK, DISCUSSED WITH HOME HEALTH SCHEDULER WHO ADVISED TO GIVE BP MEDICATIONS THAT WERE HELD FOR DIALYSIS THIS AM. DR FRANKS RETURNED CALL AND ALSO ORDERED PRN MEDS NEEDED, AWARE OF DOSES GIVEN AT A LATER TIME. DR FRANKS ALSO STATES THAT HE SPOKE TO A CERTIFIED PATHOLOGY ASSISTANT WHO ADVISED FOR SOME LABS AND PT WILL LIKELY DC TOMORROW. PT AWARE OF THIS PLAN. DR FRANKS ALSO ASKED STAFF TO SPEAK WITH DR VEGAS'S OFFICE REGARDING THE TIMING OF PT'S LAST DOSE OF RITUXIN. MESSAGE LEFT AT OFFICE REGARDING THIS.
--- NOTE | 2020-08-17 18:20 | NUR ---
SHIFT SUMMARY PATIENT A&OX4. OXYGEN SATURATIONS ABOVE 92% ON RA. HYPERTENSION NOTED AFTER DIALYSIS. MEDICATED PER EMAR. SEE OTHER NOTES. PATIENT REMAINS INDEPENDENT IN THE ROOM. PERIOD OF FRUSTRATION TOWARDS END OF SHIFT, ABLE TO DE[place]CALTE. LABS INDICATED SOME TYPE OF INFECTION. DR. FRANKS AWARE OF LAB VALUES. BLOOD CULTURES ORDERED BUT PATIENT REFUSED AND THREATENING TO LEAVE AMA.
--- NOTE | 2020-08-17 18:26 | NUR ---
ADMIT: 08/15/20 DISCHARGE: DX: hemoptysis CC: Bishop Wiggins DX: Depressive disorder, HTN, pulmonary edema, sleep apnea, see list RESIDENCE: HOME WITH BROTHER AND SISTER IN -LAW CAREGIVER: Self DME: Nebulizer and equipment Update 08/16/20: Per chart review pt. likely to discharge within the next 72 hours. SUMMARY: This is a pleasant 39-year-old gentleman with h/o Keisha's disease presentingwith hemoptysis for a week or so. Patient has had hemoptysis for months but forthe past week or so it has really worsened. Patient called up his nephrologistwho advised him to come to the ER for concerns of hemoptysis and anemia. He isnot complaining of any shortness of breath, chest pain or palpitations. In theER he is also noted to have urinary retention.-- A/P -- 1: HemoptysisA/P: - consult Pulm- monitor cbc 2: Anemia in chronic illnessA/P: Hb 6.9- Transfuse 1 unit prbc with HD.- Monitor 3: HTN (hypertension)A/P: Resume home med regimen. 4: Wegeners granulomatosisA/P: consult hem/onche is not on rituximab anymore. 5: ESRD (end stage renal disease) on dialysisA/P: consult nephrology 6: Urinary retentionA/P: ybarra placed.start flomax bid
--- NOTE | 2020-08-17 18:28 | NUR ---
Update 08/17/20 1815: Per recent nursing notes pt. has elevated BP. Had been holding hydralazine due to dialysis treatment. Per notes, pt. is likely to D/C tomorrow. I have scheduled a F/U appointment with scheduled within one week per Dr. Sifuentes. Scheduled with Dr. Whitehead 08/23/[address] Antonio is out of the office next week. It would be helpful to ensure that he is scheduled for [facility] F/U at time of PAO call. Update 08/17/20 1430: Met with pt. to review discharge plan as he is likely to D/C tomorrow. Pt. stated that he has family that will pick him up (lives with brother and sister in-law). He denied concerns regarding D/C as far picking up any prescriptions or having transportation to upcoming appointments. He is aware that [facility] has been consulted regarding his long-term care. He states his understanding of the importance of the follow-up with [facility]. He adds that he just wants to feel better. Update 08/17/20 1104: Per chart review this AM with Dr. Sifuentes, pt. likely to discharge within the next 48 hours. [facility] has been consulted regarding his care. Schedule follow-up appointment next week with PCP.
--- NOTE | 2020-08-17 18:37 | NUR ---
AMA PATIENT DECIDED TO LEAVE [place] AT 1837. PATIENT REFUSED TO SIGN [place] PAPERS. PATIENT WAS MADE AWARE OF THE RISKS WHEN LEAVING AGAINST MEDICAL ADVICE. IV WAS REMOVED, PATIENT GOT DRESSED AND WALKED OFF UNIT WITH BELONGINGS.
[2020-08-18 08:10] LABS: COMPLEMENT C3, SERUM 90 mg/dL (82-167); COMPLEMENT C4, SERUM 22 mg/dL (12-38)
[2020-08-23 14:10] LABS: ANA DIRECT Negative (Negative); ANTIMYELOPEROXIDASE (MPO) ABS <9.0 U/mL (0.0-9.0); ANTIPROTEINASE 3 (PR-3) ABS 29.1 U/mL (0.0-3.5); ATYPICAL PANCA <1:20 titer (Neg:<1:20); PERINUCLEAR (P-ANCA) <1:20 titer (Neg:<1:20)
[2020-09-30] MEDS ORDERED: CLON.1 PO (15:40)
[2020-10-10] MEDS ORDERED: CLINGEL TOP (10:35)
[2020-10-10] MEDS ORDERED: DICLOFENAC SOD100 G1 TOP (10:36)
[2020-10-10] MEDS ORDERED: OXYC10TA19 PO (10:36)
== END 2020-08-17 18:38 | disposition left against medical advice (07) | DRG 542 ==
LOC: ER 23:33 → MEDS 08-15 02:25
PROVIDERS: Emergency Medicine; Family Medicine; Internal Medicine Nephrology; ADMIT Internal Medicine
PROC: 5A1D70Z Performance of Urinary Filtration, Intermittent, Less than 6 Hours Per Day (ICD-10-PCS; principal; 2020-08-16)
PROC: 6A551Z3 Pheresis of Plasma, Multiple (ICD-10-PCS; 2020-08-16)
PROC: 0T9B70Z Drainage of Bladder with Drainage Device, Via Natural or Artificial Opening (ICD-10-PCS; 2020-08-16)
DX: M31.31 Wegener's granulomatosis with renal involvement (principal); N18.6 End stage renal disease; A41.9 Sepsis, unspecified organism; N25.81 Secondary hyperparathyroidism of renal origin; E87.1 Hypo-osmolality and hyponatremia; I13.2 Hypertensive heart and chronic kidney disease with heart failure and with stage 5 chronic kidney disease, or end stage renal disease; I43 Cardiomyopathy in diseases classified elsewhere; R33.9 Retention of urine, unspecified; I50.9 Heart failure, unspecified; Z53.29 Procedure and treatment not carried out because of patient's decision for other reasons; D63.1 Anemia in chronic kidney disease; Z99.2 Dependence on renal dialysis; Z98.1 Arthrodesis status; Z98.890 Other specified postprocedural states; Z79.2 Long term (current) use of antibiotics; Z79.899 Other long term (current) drug therapy
CPT/HCPCS: 36415; 36430; 51702; 51798; 71250; 80048; 80053; 80069; 82947; 83520; 83690; 83735; 83880; 84145; 85014; 85018; 85025; 85027; 85610; 86160; 86256; 86850; 86900; 86901; 86902; 86922; 87070; 87077; 87186; 87205; 93005; 93010; 96374; 96375; 96376; 99285-25; A9270; G0378; J1170; J2405; J3010; J7512; P9016

== ENCOUNTER 2020-09-04 10:16 | Inpatient (IN) | payer MEDICARE, OTHER ==
[~2020-09-04] VITALS: Ht 182.9 cm; Wt 67.1 kg
[~2020-09-04 10:16] MED LIST changes: +ADALAT CC60 M1 PO; +BACTRIM DS TAB1 EAC6 PO; +Catapres0.2 MG PO
[2020-09-04 11:35] LABS: BASOPHILS ABSOLUTE AUTO 0.02 K/mm3 (0.00-0.23); BASOPHILS PERCENT AUTO 0 % (0-2); EOSINOPHILS PERCENT AUTO 0 % (0-6); Hematocrit 34.6 % (37.0-53.0); Hemoglobin 11.2 g/dL (13.5-17.5); IMMATURE GRAN ABSOLUTE AUTO 0.09 K/mm3 (0.00-0.10); IMMATURE GRAN PERCENT AUTO 1 % (0-1); LYMPHOCYTES ABSOLUTE AUTO 0.57 K/mm3 (0.84-5.20); LYMPHOCYTES PERCENT AUTO 4 % (21-46); MONOCYTES ABSOLUTE AUTO 0.63 K/mm3 (0.16-1.47); MONOCYTES PERCENT AUTO 4 % (4-13); Mean Corpuscular HGB 28.7 pg (26.0-34.0); Mean Corpuscular HGB Conc 32.4 g/dL (31.5-36.5); Mean Corpuscular Volume 89 fL (80-100); NEUTROPHILS ABSOLUTE AUTO 13.05 K/mm3 (1.96-9.15); NEUTROPHILS PERCENT AUTO 91 % (41-73); NRBC ABSOLUTE 0.03 K/mm3 (0.00-0.02); NRBC Auto 0.2 /100 WBC (0.0-0.2); Platelet Count 155 K/mm3 (150-400); RDW Coefficient Variation 19.3 % (11.7-14.2); RDW Standard Deviation 62.7 fL (35.1-46.3); White Blood Cell Count 14.36 K/mm3 (4.00-11.30)
[2020-09-04 11:44] LABS: Mean Platelet Volume 12.6 fL (9.1-12.4)
[2020-09-04 11:53] LABS: Troponin I 0.475 ng/mL (0.000-0.040)
[2020-09-04 12:00] LABS: Albumin, Blood 2.6 g/dL (3.4-5.0); Albumin/Globulin Ratio 0.7 (0.8-1.8); Bilirubin, Total 1.8 mg/dL (0.1-1.0); Bun/Creatinine Ratio 19.3 (12.0-20.0); Calcium, Blood 9.3 mg/dL (8.5-10.1); Creatinine, Blood 7.56 mg/dL (0.60-1.20); Globulin, Blood 3.8 g/dL (2.2-4.0); Potassium, Blood 7.4 mmol/L (3.5-5.5); Total Protein, Blood 6.4 g/dL (6.4-8.2)
--- NOTE | 2020-09-04 13:07 | NUR ---
STAT HEMODIALYSIS ORDERED BR DR GATICA FOR ER PATIENT PENDING ADMIT TO THE FLOOR WITH C/O CHEST PAIN AND k+ 7.5 HD SCHEDULED FOR 1340 WAIT TIME WILL COMMENCE AT 1410
--- NOTE | 2020-09-04 14:03 | NUR ---
DIALYSIS COAL WASHER IN ROOM 359. AWAITING PATIENT AT THIS TIME TO COMMENCE STAT HD.
[2020-09-04] MEDS ORDERED: PANT40 PO (16:11)
[2020-09-04] MEDS ORDERED: MEGESTROL400 MG/11 PO (16:13)
[2020-09-04] MEDS ORDERED: BUME2 PO (16:14)
[2020-09-04] MEDS ORDERED: FURO80 PO (16:14)
[2020-09-04] MEDS ORDERED: SEVEC800 PO (16:15)
[2020-09-04] MEDS ORDERED: Ativan1 MG PO (16:18)
[2020-09-04] MEDS ORDERED: ALUMINUM H320 MG/5 M PO (22:24)
[2020-09-04] MEDS ORDERED: LOSA50 PO (22:28)
[2020-09-04] MEDS ORDERED: VELTASSA PO (22:29)
--- NOTE | 2020-09-05 03:45 | NUR ---
SHIFT SUMMARY PT IS EASILY IRRITABLE. AWAKE MUCH OF THIS EVENING. REPORTING PAIN, BOTH GENERALIZED AND CENTRALIZED TO R RIB/LUNG. MEDICATED PER EMAR. PT DECLINED PO PAIN MEDICATIONS STATING THAT ONLY THE IV MEDICATIONS WORK. PT IS DECONDITIONED. THIN AND FRAIL APPEARING. SOME BIZARRE BEHAVIORS, YELLING OUT AT TIMES WITH NO EXPLANATION. IV TO LAC LEAKING SLIGHTLY. PT REFUSED TO HAVE IT CHANGED OUT THIS EVENING. TELEMETRY READING SINUS TACH 103. PT ALSO HTN AT BASELINE WITH CONTINUED HTN HERE. HOME DOSE OF CATEPRES PO REORDERED PER DR. VILLASENOR WITH SOME IMPROVEMENT. PT COUGHING UP SMALL AMOUNTS OF BLOODY SPUTUM WHICH IS ALSO BASELINE. BLE'S VERY EDEMATOUS. DIALYSIS PERMACATH TO L CHEST WALL. DIALYSIS YESTERDAY.
--- NOTE | 2020-09-05 04:20 | NUR ---
TOOK OVER CARE OF PT FROM CALVIN MURRIETA. PT IS CURRENTLY LYING IN BED, EYES CLOSED, APPEARS TO BE RESTING. BREATHING IS EVEN, UNLABORED. NO APPARENT SIGNS OF DISTRESS. CALL LIGHT IS IN REACH.
--- NOTE | 2020-09-05 05:46 | NUR ---
PT LYING IN BED, REQUESTED AND RECIEVED STRING CHEESE AND RYLIE CRACKERS. NO OTHER APPARENT SIGNS OF DISTRESS. CALL LIGHT IS IN REACH. NO OTHER CHANGES THIS SHIFT.
[2020-09-05 10:29] LABS: BASOPHILS ABSOLUTE AUTO 0.02 K/mm3 (0.00-0.23); BASOPHILS PERCENT AUTO 0 % (0-2); EOSINOPHILS ABSOLUTE AUTO 0.02 K/mm3 (0.00-0.68); EOSINOPHILS PERCENT AUTO 0 % (0-6); Hematocrit 33.5 % (37.0-53.0); Hemoglobin 10.5 g/dL (13.5-17.5); IMMATURE GRAN PERCENT AUTO 1 % (0-1); LYMPHOCYTES ABSOLUTE AUTO 0.48 K/mm3 (0.84-5.20); LYMPHOCYTES PERCENT AUTO 3 % (21-46); MONOCYTES ABSOLUTE AUTO 0.59 K/mm3 (0.16-1.47); MONOCYTES PERCENT AUTO 4 % (4-13); Mean Corpuscular HGB Conc 31.3 g/dL (31.5-36.5); Mean Corpuscular Volume 89 fL (80-100); Mean Platelet Volume 11.9 fL (9.1-12.4); NEUTROPHILS ABSOLUTE AUTO 13.74 K/mm3 (1.96-9.15); NEUTROPHILS PERCENT AUTO 91 % (41-73); NRBC ABSOLUTE 0.02 K/mm3 (0.00-0.02); NRBC Auto 0.1 /100 WBC (0.0-0.2); Platelet Count 187 K/mm3 (150-400); RDW Standard Deviation 61.5 fL (35.1-46.3); Red Blood Cell Count 3.75 M/mm3 (4.30-5.90); White Blood Cell Count 15.05 K/mm3 (4.00-11.30)
[2020-09-05 11:21] LABS: Albumin, Blood 2.5 g/dL (3.4-5.0); Anion Gap 13 mmol/L (6-16); Blood Urea Nitrogen 131 mg/dL (8-24); Bun/Creatinine Ratio 18.8 (12.0-20.0); CO2, Blood 25 mmol/L (21-32); Calcium, Blood 9.1 mg/dL (8.5-10.1); Chloride, Blood 90 mmol/L (98-108); Creatinine, Blood 6.96 mg/dL (0.60-1.20); Glomerular Filtration Rate 9 (60-); Glucose, Blood 112 mg/dL (70-99); Phosphorus, Blood 12.8 mg/dL (2.5-4.9); Sodium, Blood 128 mmol/L (136-145)
[2020-09-05 14:03] LABS: Vancomycin, Random 10.3 ug/mL
--- NOTE | 2020-09-05 18:18 | NUR ---
SHIFT SUMMARY PATIENT MEDICATED X3 FOR PAIN THIS SHIFT. DENIES NAUSEA AND SHORTNESS OF BREATH. UP SBA IN ROOM. CAN BE IRRITABLE WITH CARE. DIALYSIS TODAY. POWERGLIDE PLACED TO ELBA. 1000ML FLUID RESTRICTION. GOOD PO INTAKE.
[2020-09-06 05:03] LABS: Hematocrit 31.5 % (37.0-53.0); Hemoglobin 10.2 g/dL (13.5-17.5)
[2020-09-06 05:20] LABS: Magnesium, Blood 2.5 mg/dL (1.6-2.4)
--- NOTE | 2020-09-06 06:02 | NUR ---
SHIFT SUMMARY: AOX3, VERY FORGETFUL AT TIMES. YELLS AND SCREAMS OUT OF THE BLUE, HE STATES "DON'T MIND ME, ITS DUE TO THE PAIN IN HIS LEGS R/T THE EDEMA. +4 STATES HE CAN'T SLEEP OR GET COMFORTABLE FOR LONG DUE TO THE PAIN. HE IS CONSTANTLY MOVING. FAINT PULSES IN THE FEET. HE IS FRAIL, SKIN AND BONES. PAIN AVERAGE IS 7-8 TAKES DILUDID WHICH HELPS BRING IT TO MAYBE 5-6 BUT DOES NOT LAST LONG. DOES NOT LIKE TO TAKE OXYCODONE, HE STATES HE LIKES TO GIVE HIS STOMACH A REST. LUNG SOUNDS DIMINISHED. HR TACHY AT TIMES. HTN AT 159/115, HR 107. K+ 6.[address] GATICA NOTIFIED. REFUSES HEPARIN. WILL REPORT TO DAYSHIFT. CALL LIGHT IS IN REACH.
[2020-09-06 06:04] LABS: Albumin, Blood 2.5 g/dL (3.4-5.0); Anion Gap 15 mmol/L (6-16); Blood Urea Nitrogen 103 mg/dL (8-24); Bun/Creatinine Ratio 16.7 (12.0-20.0); CO2, Blood 25 mmol/L (21-32); Calcium, Blood 8.5 mg/dL (8.5-10.1); Chloride, Blood 88 mmol/L (98-108); Creatinine, Blood 6.16 mg/dL (0.60-1.20); Glomerular Filtration Rate 11 (60-); Glucose, Blood 96 mg/dL (70-99); Potassium, Blood 6.3 mmol/L (3.5-5.5); Sodium, Blood 128 mmol/L (136-145)
[2020-09-06 08:10] LABS: HBSAG SCREEN Negative (Negative)
[2020-09-06 12:58] LABS: Vancomycin, Random 16.6 ug/mL
--- NOTE | 2020-09-06 16:59 | NUR ---
ADMIT: 09/04/20 DX: Hyperkalemia CC: Bishop Wiggins PAO CALL: pt at home?RESIDENCE: HOME WITH BROTHER AND SISTER IN [place] Update 09/06/20: Pt. required urgent dialysis yesterday. Not appropriate for discharge at this time per discussion and chart review with Dr. Malik. Tomorrow morning I will discuss care management with pt. and determine if he will be agreeable to have [facility] clinical staff assist him in ensuring that there are no barriers to care post discharge. Pt. is scheduled for hospital F/U on 09/18/20 at 2:[address] Antonio. Will assist in demolition specialist appointments as well. Update 09/05/20: Per chart review this am with Dr. Malik, pt. not likely to discharge for 48-72 hours. Pt. is a re-admit x 3 this year. He was non-compliant with his follow-up plan from discharge on 08/17/20. I will schedule appointments again prior to discharge and discuss compliance. Dr. Malik will also discuss non-compliance and impact on health.
--- NOTE | 2020-09-06 19:44 | NUR ---
SHIFT SUMMARY: NO ACUTE EVENTS. C/O PAIN IN BLE, BACK; MEDICATED PER EMAR WITH SOME RELIEF, BUT IS DECLINING OFFERED OXYCODONE. NO EVENTS ON TELEMETRY, SR-ST 96-117. REMAINS HYPERTENSIVE, HAS CLONIDINE PATCH AND PO CATAPRES. SKIN IS INTACT, DRY, CACHECTIC. NON COMPLIANT WITH FLUID RESTRICTION. REFUSING SQ HEPARIN. HAD DIALYSIS TODAY. HE IS FRUSTRATED WITH THE AMOUNT OF FOOD HE IS RECEIVING AND BURNER OPERATOR IS WORKING ON THIS.
[2020-09-07 05:21] LABS: BASOPHILS ABSOLUTE AUTO 0.02 K/mm3 (0.00-0.23); BASOPHILS PERCENT AUTO 0 % (0-2); EOSINOPHILS ABSOLUTE AUTO 0.06 K/mm3 (0.00-0.68); EOSINOPHILS PERCENT AUTO 0 % (0-6); Hematocrit 31.9 % (37.0-53.0); Hemoglobin 10.1 g/dL (13.5-17.5); IMMATURE GRAN ABSOLUTE AUTO 0.11 K/mm3 (0.00-0.10); IMMATURE GRAN PERCENT AUTO 1 % (0-1); LYMPHOCYTES ABSOLUTE AUTO 0.33 K/mm3 (0.84-5.20); LYMPHOCYTES PERCENT AUTO 2 % (21-46); MONOCYTES PERCENT AUTO 3 % (4-13); Mean Corpuscular HGB 28.5 pg (26.0-34.0); Mean Corpuscular HGB Conc 31.7 g/dL (31.5-36.5); Mean Corpuscular Volume 90 fL (80-100); NEUTROPHILS PERCENT AUTO 94 % (41-73); Platelet Count 118 K/mm3 (150-400); RDW Coefficient Variation 18.8 % (11.7-14.2); RDW Standard Deviation 62.7 fL (35.1-46.3); Red Blood Cell Count 3.54 M/mm3 (4.30-5.90); White Blood Cell Count 14.52 K/mm3 (4.00-11.30)
[2020-09-07 05:39] LABS: Magnesium, Blood 2.3 mg/dL (1.6-2.4)
[2020-09-07 05:40] LABS: Albumin, Blood 2.5 g/dL (3.4-5.0); Anion Gap 12 mmol/L (6-16); Blood Urea Nitrogen 89 mg/dL (8-24); Bun/Creatinine Ratio 15.9 (12.0-20.0); CO2, Blood 26 mmol/L (21-32); Calcium, Blood 8.3 mg/dL (8.5-10.1); Chloride, Blood 90 mmol/L (98-108); Creatinine, Blood 5.58 mg/dL (0.60-1.20); Glomerular Filtration Rate 12 (60-); Glucose, Blood 102 mg/dL (70-99); Potassium, Blood 5.7 mmol/L (3.5-5.5); Sodium, Blood 128 mmol/L (136-145)
--- NOTE | 2020-09-07 05:54 | NUR ---
SHIFT SUMMARY NO ACUTE CHANGES OVERNIGHT. PT STS HE SLEPT GOOD FOR 4 HRS STRAIGHT LAST NIGHT. REPORTS BACK PAIN. PAIN MANAGED WITH 1MG DILAUDID. PT ALSO REQUESTED TO TAKE OXY 10MG ONCE LAST NIGHT. HE REMAINS HYPERTENSIVE. ALERT AND ORIENTED. PLEASANT T/O SHIFT. HE REFUSED TO TAKE HIS HEPARIN. HE HAS BEEN INDEPENDENT IN ROOM. WALKED IN THE HALLWAY THIS MORNING. HE IS CURRENTLY IN THE BATHROOM, TAKING SHOWER. TELE ON SINUS TACH AT 100'S. REMAIN TO HAVE BLE EDEMA. CALL LIGHT WITHIN REACH. WILL PROVIDE REPORT TO ONCOMING NURSE.
[2020-09-07 06:09] LABS: Phosphorus, Blood 8.9 mg/dL (2.5-4.9)
[2020-09-07 12:00] LABS: Vancomycin, Random 13.6 ug/mL
--- NOTE | 2020-09-07 15:18 | NUR ---
WHILE THE BEDSIDE NURSE WAS ON LUNCH PT NOTED TO HAVE A HEART RATE 130-139 IN AFLUTTER. SPOKE WITH [employer] WHO CONFIRMED THIS. PO METOPROLOL GIVEN APROX 55 MIN PRIOR. CALLED AND SPOKE WITH DR WONG WHO ORDERED AN ADDITIONAL 25MG PO DOSE AND TO CALL BACK WITHIN AN HOUR. PO DOSE GIVEN. PT ASYMPTOMATIC. BEDSIDE NURSE UPDATED.
--- NOTE | 2020-09-07 16:32 | NUR ---
Update 09/07/20: Pt. scheduled for F/U appointment on 09/14/20 as there is potential for discharge over the next 48-72 hours. Reviewed discharge planning with pt. in the case that he is discharged over the weekend. He states that he will call for transportation from his family or friends when it is time. We discussed the importance of following up. PAO team at [facility] will follow-up with pt. post discharge and offer support in senior computer specialist appointments post discharge. No further concerns at this time.
--- NOTE | 2020-09-07 18:55 | NUR ---
PATIENT ARRIVED TO UNIT VIA WHEELCHAIR, ABLE TO TRANSFER SELF TO BED. PATIENT IS ALERT AND ORIENTED, COOPERATIVE WITH CARE AT THIS TIME. PATIENT IN A FLUTTER IN 120s AT TIME OF ARRIVAL PER GENERAL ROAD FOREMAN. AMIODORONE GTT STARTED PER EMAR. PATIENT DENIES PAIN/DISCOMFORT AND THIS TIME. WCTM.
--- NOTE | 2020-09-07 19:30 | NUR ---
1130: RECEIVED CALL FROM TELEMETRY THAT PT'S HR ESCALATED TO 150'S. PT IN DIALYSIS AT THE TIME OF THE CALL, ADVISED TECH TO CALL DIALYSIS TO REPORT TO HD RN. RECEIVED CALL FROM HD RN, Sarita DUDLEY, THAT PT WAS BEING TAKEN OFF DIALYSIS UPON LEARNING ABOUT HIGH HR. DR. WONG NOTIFIED, RECEIVED ORDER FOR EKG WHEN PT RETURNS TO THIS UNIT. 1220: UPON RETRIEVING PATIENT FROM HD UNIT, HE STATED THAT HE HAD BEEN HAVING CHEST DISCOMFORT EARLIER, BUT HAD RESOLVED AND THAT "IT'S MY USUAL." INFORMED HIM THAT HIS HR HAS ESCALATED, HE LOOKED A BIT PALE BUT HE DENIED FEELING UNUSUAL. RETURNED TO HIS ROOM VIA W/C. SET UP MOLD TECHNICIAN ElizabethEdwardo HEART INFORMED THIS AUTHOR THAT HIS RHYTHM HAD CONVERTED TO A FLUTTER WITH RATE 125-140. 1345: EKG CONFIRMED CONVERSION TO ATRIAL FLUTTER AND ELEVATED HR. DR. WONG NOTIFIED BY PHONE. RECEIVED ORDER FOR METOPROLOL PO, WHICH WAS GIVEN BUT HAD NO EFFECT ON HR OR BP. 1600: SECOND DOSE OF METOPROLOL PO GIVEN LATE THIS AFTERNOON, AGAIN WITH NO NOTICEABLE EFFECT ON HR OR BP. DR. WONG NOTIFIED THAT RHYTHYM UNCHANGED AND HR SUSTAINING 125-138. 1700: RECIEVED ORDER FOR AMIODORONE GTT, WHICH CANNOT BE DONE ON MEDICAL FLOOR. GEAR KEEPER KARELY CALLED DR. WONG TO INFORM THAT TRANSFER TO HIGHER LEVEL OF CARE WOULD BR REQUIRED. TRANSFER ORDER RECEIVED. PATIENT TRANSFERRED TO PCU 15 AT 1840 VIA W/C. REPORT GIVEN TO Meghan GRIMES RN.
--- NOTE | 2020-09-07 20:37 | NUR ---
SHIFT SUMMARY: SEE ADDITIONAL NOTE REGARDING TELEMETRY EVENTS AND TRANSFER. C/O PAIN IN BACK, LEGS, AND NECK; MEDICATED PER EMAR WITH SOME RELIEF. NON COMPLIANT WITH FLUID RESTRICTION. VANCOMYCIN DOSE GIVEN. HAD SHOWER ON PREVIOUS SHIFT, ALSO HAD BM. EATING MOST OF MEALS, EATS SLOWLY, WANTS MORE CALORIES. SLEPT INTERMITTENTLY AFTER DIALYSIS.
[2020-09-08 05:25] LABS: Hematocrit 32.3 % (37.0-53.0); Hemoglobin 10.2 g/dL (13.5-17.5)
[2020-09-08 05:42] LABS: Magnesium, Blood 2.7 mg/dL (1.6-2.4)
--- NOTE | 2020-09-08 05:59 | NUR ---
SHIFT SUMMARY PT AXO BUT VERY LABILE, WITHDRAWN, IRRITABLEAT TIMES, CRYING AT TIMES, ETC. TALKS TO HIMSELF OFTEN AND NEEDS CONSTANT REASSURANCE. ANXIETY APPEARS TO BE A BASELINE FEELING FOR HIM BUT PT DENIES THIS. DOESN'T LIKE TO TAKE PILLS IN FRONT OF STAFF, IS VERY PARTICULAR ABOUT WHO IS PROVIDING CARE, WHEN, HOW OFTEN, ETC. HAS BEEN UP IN CHAIR THIS SHIFT. AMIODARONE GTT INFUSING, ON HALF RATE NOW. PUMP PROGRAMMED TO STOP AT TIME OF DC OF MEDICATION. PT IN AFLUTTER AT SHIFT START BUT CONVERTED TO SR @ 2137 AND THEN IT WAS NOTED LATER THAT PT HAS A 1ST DEGREE HB. ASIDE FROM THIS, PT HAS PREFERRED TO BE ALONE THIS SHIFT. USES CALL LIGHT WHEN APPROPRIATE.
[2020-09-08 06:01] LABS: Albumin, Blood 2.4 g/dL (3.4-5.0); Anion Gap 15 mmol/L (6-16); Blood Urea Nitrogen 89 mg/dL (8-24); Bun/Creatinine Ratio 16.6 (12.0-20.0); CO2, Blood 23 mmol/L (21-32); Calcium, Blood 8.2 mg/dL (8.5-10.1); Chloride, Blood 89 mmol/L (98-108); Creatinine, Blood 5.35 mg/dL (0.60-1.20); Glomerular Filtration Rate 13 (60-); Glucose, Blood 87 mg/dL (70-99); Phosphorus, Blood 10.5 mg/dL (2.5-4.9); Potassium, Blood 7.2 mmol/L (3.5-5.5); Sodium, Blood 127 mmol/L (136-145)
--- NOTE | 2020-09-08 09:46 | NUR ---
AMIODORONE GTT STOPPED AT 0945 AND PATIENT TAKEN TO DIALYSIS, DR. WONG OK'D PAUSING AMIODORONE FOR DIALYSIS.
[2020-09-08 12:29] LABS: Vancomycin, Random 23.3 ug/mL
--- NOTE | 2020-09-08 17:21 | NUR ---
SHIFT SUMMARY NO ACUTE EVENTS THIS SHIFT, VSS. PATIENT ALERT AND ORIENTED T/O SHIFT, WOULD CALL APPROPRIATELY. AT TIMES PATIENT BECAME ANXIOUS/IRRITABLE AND CRIED OUT, WHEN THIS RN CHECKED TO SEE IF PT WAS STABLE, PT WOULD DENY NEEDS/DISCOMFORT. PT WOULD TALK TO SELF AT TIMES WHILE ALONE IN THE ROOM. DIALYSIS TODAY, NO ACUTE EVENTS. PT REMAINED IN NSR, AMIODORONE GTT PAUSED FOR DIALYSIS , SEE PREVIOUS NURSING NOTE. PT RETURNED FROM DIALYSIS, HR REMAINED STABLE, DR. WONG NOTIFIED AND ORDERS FOR DC AMIODORONE GTT GIVEN. BLE REMAIN EDEMATOUS. PT REMAINED IN RECLINER THROUGH THIS SHIFT.
[2020-09-09 04:50] LABS: Hemoglobin 10.8 g/dL (13.5-17.5)
[2020-09-09 05:03] LABS: Magnesium, Blood 2.6 mg/dL (1.6-2.4)
--- NOTE | 2020-09-09 05:46 | NUR ---
SHIFT SUMMARY NO ACUTE CHANGES THIS SHIFT. PT AXO. REMAINS IN SR/SBR 40'S-60'S WITH FIRST DEGREE. METOPROLOL HELD DUE TO THE BRADYCARDIA. PT'S MOOD MUCH LESS LABILE THIS SHIFT AND HAS BEEN VERY PLEASANT WITH STAFF THIS SHIFT. HAS RESTED OFF AND ON, GENERALLY POST IV PAIN MEDICATION. PT HAS BEEN HUNCHED OVER IN RECLINER CHAIR FOR MOST OF SHIFT BUT DID FIND RELIEF WHEN SITTING BACK WITH FEET UP. OTHERWISE, PT PREFERS DOOR CLOSED. USES CALL LIGHT WHEN NEEDING STAFF. DIFFICULT TO MAINTAIN FLUID RESTRICTION BUT PT TRYING.
[2020-09-09 05:54] LABS: Albumin, Blood 2.5 g/dL (3.4-5.0); Anion Gap 14 mmol/L (6-16); Blood Urea Nitrogen 105 mg/dL (8-24); Bun/Creatinine Ratio 18.5 (12.0-20.0); CO2, Blood 22 mmol/L (21-32); Calcium, Blood 8.3 mg/dL (8.5-10.1); Chloride, Blood 92 mmol/L (98-108); Creatinine, Blood 5.69 mg/dL (0.60-1.20); Glomerular Filtration Rate 12 (60-); Glucose, Blood 97 mg/dL (70-99); Phosphorus, Blood 11.3 mg/dL (2.5-4.9); Potassium, Blood 6.7 mmol/L (3.5-5.5); Sodium, Blood 128 mmol/L (136-145)
--- NOTE | 2020-09-09 10:44 | NUR ---
DIALYSIS PT LEFT FOR DIALYSIS AT APPROXIMATELY 0930
[2020-09-09 12:35] LABS: Vancomycin, Random 15.2 ug/mL
--- NOTE | 2020-09-09 12:52 | NUR ---
PT ARRIVED BACK TO PCU FROM DIALYSIS. PT REPORTS FEELING BETTER JUST TIRED. PT IS RESTING IN HIS RECLINER AT THIS TIME, HAVING HIS LUNCH.
--- NOTE | 2020-09-09 18:07 | NUR ---
SHIFT SUMMARY PT HAS BEEN INDEPENDENT IN THE ROOM TODAY. PT PARTICIPATED IN DIALYSIS THIS MORNING. VS HAVE BEEN STABLE, PT DENIES CP BUT USES 3L O2 ON AND OFF FOR COMFORT. PT HAS REQUESTED A VISIT FROM SPIRITUAL CARE, THEY HAVE BEEN CONSULTED. DIETARY HAS ALSO BEEN CONSULTED HE APPEARS VERY MALNOURISHED. PT IS RESTING IN HIS CHAIR AT THIS TIME
[2020-09-10 05:23] LABS: Hematocrit 34.1 % (37.0-53.0)
--- NOTE | 2020-09-10 05:34 | NUR ---
SHIFT SUMMARY PATIENT FOUND TO BE A&OX4 AND VERY IRRITABLE. OBVIOUSLY ANXIOUS. REFUSES THERAPEUTIC COMMUNICATION. VSS. SR IN THE 80'S ON THE MONITOR. ON 2L NC FOR COMFORT. REFUSED MIDNIGHT VITALS R/T ANXIETY. DECENT PAIN CONTROL WITH DILAUDID Q4H. POOR APPETITE. UP IND IN ROOM. NO ACUTE CONCERNS AT THIS TIME. WILL CONTINUE TO MONITOR UNTIL REPORT GIVEN TO DAYSHIFT RN.
[2020-09-10 05:43] LABS: Magnesium, Blood 2.2 mg/dL (1.6-2.4)
[2020-09-10 06:07] LABS: Albumin, Blood 2.2 g/dL (3.4-5.0); Anion Gap 12 mmol/L (6-16); Blood Urea Nitrogen 91 mg/dL (8-24); Bun/Creatinine Ratio 17.2 (12.0-20.0); CO2, Blood 24 mmol/L (21-32); Calcium, Blood 7.9 mg/dL (8.5-10.1); Chloride, Blood 92 mmol/L (98-108); Creatinine, Blood 5.29 mg/dL (0.60-1.20); Glomerular Filtration Rate 13 (60-); Glucose, Blood 98 mg/dL (70-99); Phosphorus, Blood 9.6 mg/dL (2.5-4.9); Potassium, Blood 6.2 mmol/L (3.5-5.5); Sodium, Blood 128 mmol/L (136-145)
--- NOTE | 2020-09-10 12:23 | NUR ---
DIALYSIS PT JUST COMPLETED DIALYSIS FOR THE DAY. 1.5L WAS REMOVED DURING DIALYSIS. DR. GATICA WOULD LIKE PT TO HAVE A NEW DIALYSIS PORT PLACED BUT THE PT STATES "I JUST DON'T WANT TO DO IT HERE, I WANT TO HAVE IT DONE AT [facility]." TJ GUTIERREZ ASKED THE PT AT WHAT POINT DOES HE WANT TO STOP CARE HERE, "WOULD YOU LIKE TO GET STABLE ENOUGH TO GO HOME THEN GO TO [facility]? DO YOU WANT TO CONTINUE DIALYSIS HERE?" I EXPLAINED THAT I'M HIS ADVOCATE AND IT IS MY JOB TO TRY TO MEET HIS NEEDS BUT ALSO KEEP HIS BEST INTEREST AND HEALTH IN MIND. PT WAS UNDERSTANDING AND WANTED TO THINK ABOUT THINGS. TJ GUTIERREZ EXPLAINED THAT FOR NOW HE WOULD REMAIN NPO UNTIL AFTER MEETING WITH DR. ORLANDO THIS AFTERNOON AND WE'LL GO FROM THERE.
[2020-09-10 13:02] LABS: Vancomycin, Random 11.2 ug/mL
--- NOTE | 2020-09-10 15:08 | NUR ---
Patient is sitting on a chair and resting. Patient tells me that he is glad I came to visit. He begins to tell me about his disease and the damage it has caused to his kidneys. He explains that he is waiting for a kidney transplant. He also talks about his return to God after being angry with him for years. Patient says that he is exhausted from dialysis and has been waiting for food and wonders if I could come back after he eats. I return 40 minutes later and patient is sound asleep in his chair. I will attempt to visit next day.
--- NOTE | 2020-09-10 18:40 | NUR ---
SHIFT SUMMARY PT HAD DIALYSIS TODAY IN HIS ROOM WITH THE CRACK OFF PERSON. PT WAS CONSENTED FOR A NEW PERMACATH FOR TOMORROW WITH DR. ORLANDO. PT IS INDEPENDENT IN THE ROOM. PT IS CURRENTLY HAVING DINNER AT THIS TIME. PT MET WITH SPIRITUAL CARE TODAY FOR SOME SUPPORT. PT ALSO MET WITH DIETARY TODAY SO HE COULD CHOOSE DIFFERENT SUPPLEMENTS AND HAVE SOME ADJUSTED DIET TO IMPROVE HIS INTAKE. [employer] INSTALLATION HELPER JAYCE AGREED TO ALLOW PT TO CONTINUE THE RENAL DIET BUT HAVE HIGH PROTEIN AND NORMAL SODIUM FOODS; BUT WANTS HIM TO AVOID HIGH POTASSIUM AND PHOSPHORUS FOODS. PT GAVE VERBAL UNDERSTANDING AND WORKED TO CHOOSE SOME OTHER OPTIONS HE WOULD LIKE FOR MEALS. VS STABLE AT THIS TIME
[2020-09-10 19:21] LABS: SARS-Cov-2 (COVID-19) PCR, MMC NEGATIVE (NEGATIVE)
[2020-09-11 04:57] LABS: Hematocrit 31.6 % (37.0-53.0); Hemoglobin 10.1 g/dL (13.5-17.5)
[2020-09-11 05:26] LABS: Albumin, Blood 2.1 g/dL (3.4-5.0); Anion Gap 11 mmol/L (6-16); Blood Urea Nitrogen 83 mg/dL (8-24); Bun/Creatinine Ratio 16.9 (12.0-20.0); CO2, Blood 26 mmol/L (21-32); Calcium, Blood 7.6 mg/dL (8.5-10.1); Chloride, Blood 92 mmol/L (98-108); Glomerular Filtration Rate 14 (60-); Glucose, Blood 99 mg/dL (70-99); Magnesium, Blood 2.1 mg/dL (1.6-2.4); Sodium, Blood 129 mmol/L (136-145)
[2020-09-11 05:36] LABS: Phosphorus, Blood 8.4 mg/dL (2.5-4.9)
--- NOTE | 2020-09-11 05:56 | NUR ---
SHIFT SUMMARY PATIENT IS ALERT AND ORIENTED X4. INDEPENDENT WITH REPOSITIONING. PATIENT RECIEVED A SHOWER LAST NIGHT. MEDICATED FOR GENERALIZED PAIN PER EMAR. PATIENT IRRITABLE AT TIMES. 02 SATS 99% ON RA. PATIENT LIKES TO HAVE 2L OF 02 PRN FOR COMFORT. PATIENT NPO SINCE MIDNIGHT. VSS, NO ACUTE CHANGES. CALL LIGHT IN REACH.
--- NOTE | 2020-09-11 12:36 | NUR ---
DIALYSIS YESTERDAY WHEN I WAS DOING DIALYSIS IN THE ROOM WITH THE PT. A DR PORTER IN & TALKED TO HIM ABOUT MAKING ARRANGEMENTS TO GO TO [facility]. PT WAS AGREEABLE WHILE TALKING TO THE DR. WHEN HE LEFT HE TOLD ME HE HAD NO PLANS TO GO TO [facility]. I HAVE WITNESSED THIS SITUATION WITH THE PT SEVERAL TIMES. WHERE HE SAYS YES TO THEIR FACE, BUT TELLS ME HE NO PLAN TO COMPLY.
--- NOTE | 2020-09-11 12:54 | NUR ---
Patient is sitting on a chair and alert. Patient tells me about the hard life he has lived, his family unit complications and symtoms he deals with on a daily basis. Patient also shares about his fears of medical doctors and hospitals and says, "Bad things happen to me everytime I go to a hospital." He speaks about his spiritual conversion and how meaningful prayer and conversation centered around God is to him. I reinforce helpful attitudes and practices, hear confession and provide therapeutic listening, spiritual guidance and prayer. Patient responds well and shows signs of catharsis and an elevated mood. I will continue to assist patient in the spiritual aspect of dealing with disease.
--- NOTE | 2020-09-11 18:08 | NUR ---
PT REFUSED MANY ASPECTS OF CARE INCLUDING VITAL SIGN MEASUREMENT AND RX, STATING THAT HE DID NOT WANT TO TAKE RX AND THAT HE KNOWS HIS BODY AND CAN TELL WHEN HE NEEDS CERTAIN RX. MESSAGE LEFT WITH DR. CONTRERAS CONCERNING PT'S REFUSALS. PT REPORTED THAT HE WAS GOING TO LEAVE AMA AND THAT HE REFUSED GETTING HIS DIALYSIS PORT CHANGED; PT REFUSED LAB DRAW VIA POWERGLIDE; PT STATED THAT HE DEMANDED FOOD AND THAT "THIS PLACE IS A CARE HOME". PT PROVIDED WITH MEAL AND EDUCATED ABOUT PROCEDURE. PT CONTINUED TO REFUSE PROCEDURE DR. ORLANDO WAS CALLED AT 1453 AND MESSAGE WAS LEFT CONCERNING PT'S REFUSAL OF PORT CHANGE PROCEDURE. PT RECEIVED ANALGESIC RX 2X PER MAY; BEN STILES, AND DARION ROUNDED ON PT AND PROVIDED EDUCATION; PT CONSENTED TO PROCEDURE AT 0800 ON 09/12 AND BEING NPO AFTER MIDNIGHT; PT CONTINUED TO REFUSE VITAL SIGNS AND NONANALGESIC RX; PT DENIED ADDITIONAL CONCERNS AT THIS TIME
[2020-09-12 04:46] LABS: Hematocrit 31.7 % (37.0-53.0); Hemoglobin 10.1 g/dL (13.5-17.5)
[2020-09-12 04:59] LABS: Anion Gap 12 mmol/L (6-16); Blood Urea Nitrogen 116 mg/dL (8-24); Bun/Creatinine Ratio 19.5 (12.0-20.0); CO2, Blood 25 mmol/L (21-32); Calcium, Blood 7.9 mg/dL (8.5-10.1); Chloride, Blood 90 mmol/L (98-108); Creatinine, Blood 5.96 mg/dL (0.60-1.20); Glomerular Filtration Rate 11 (60-); Glucose, Blood 86 mg/dL (70-99); Magnesium, Blood 2.3 mg/dL (1.6-2.4); Potassium, Blood 5.9 mmol/L (3.5-5.5); Sodium, Blood 127 mmol/L (136-145)
[2020-09-12 05:13] LABS: Phosphorus, Blood 8.5 mg/dL (2.5-4.9)
--- NOTE | 2020-09-12 06:08 | NUR ---
SHIFT SUMMARY PATIENT FOUND TO BE AN EMOTIONAL YOUNG MAN WHO IS A&OX4. PRN DILAUDID Q4H KEEPING CHRONIC PAIN AT TOLERABLE LEVEL OF 7. FREQUENT MOANING CAN BE HEARD FROM ROOM. VSS. ON RA. SR ON THE MONITOR. NPO SINCE 0000 FOR PROCEDURE IN AM. ANURIC. LARGE BM AT START OF SHIFT AFTER PRN MIRALAX AND AN HOUR OF PUSHING/GROANING WAS SUCCESSFUL. BLE EDEMA BOTHERING PATIENT AND FEET +3 PITTING. UP IND IN ROOM. THERAPEUTIC COMMUNICATION PROVIDED PATIENT HEALTH BEEN DECLINING FOR SOME TIME AND IS VERY ANXIOUS ABOUT IT. NO ACUTE CONCERNS AT THIS TIME. MONITORING CONTINUES UNTIL CARE ENDORSED TO DAYSHIFT RN.
[2020-09-12] MEDS ORDERED: NIFE60ER PO (12:31)
[2020-09-12] MEDS ORDERED: METO25 PO (12:32)
[2020-09-12] MEDS ORDERED: Amiodarone HCl200 MG PO (12:32)
[2020-09-12] MEDS ORDERED: SENN187 PO (12:33)
--- NOTE | 2020-09-12 12:33 | NUR ---
PT ALERT AND ORIENTED X4. ON ROOM AIR SATING HIGH 90'S. DENIES CHEST PAIN/PRESSURE. VITAL SIGNS STABLE. PERM CATH REPLACEMENT THIS AM TO LEFT CHEST WALL. DRESSING C/D/I. NO SWELLING OR REDNESS AT SIGHT. PT COMPLAINS OF PAIN AT SIGHT, MEDICATED PER EMAR WITH GOOD RELIEF. PLAN FOR DIALYSIS THIS AFTERNOON. EATING WELL. COOPERATIVE AND KIND WITH CARES. ANXIOUS TO GET HOME. CALL LIGHT IN REACH. WILL CONTINUE TO MONITOR.
[2020-09-12] MEDS ORDERED: LOKELMA PO (12:37)
--- NOTE | 2020-09-12 16:52 | NUR ---
Update 09/12/20 1648: Pt. requested this am to completed dialysis outpatient and to go home. Dr. Antonio advised it would be best for pt. to completed dialysis inpatient and then discharge can be considered after. Pt. notified by nurse. Concerns with patient's compliance from both physicians and care coordination. I will request chart review by medical field representative to determine if we need to adjust our care plan. Pt. will be contacted by PAO team post discharge. He has expressed to [facility] nursing staff that he does not intend to follow through with specialist visits. This is consistent with non-compliance previously with both specialist and PCP visits. Compliance and potentially negative outcomes discussed with pt. on multiple occasions throughout hospital admits. Update 09/11/20: Per chart review, pt. likely to discharge within the next 24-48 hours. Pt has been scheduled for a F/U on 09/14/20 which will likely need to be rescheduled at this point.
[2020-09-12] MEDS ORDERED: FURO80 PO (17:24)
--- NOTE | 2020-09-12 17:50 | NUR ---
PT CONVERTED TO AFLUTTER. NONSYMPTOMATIC. CALL PLACED TO DR. CONTRERAS. PT STILL WANTING TO DISCHARGE. PLAN TO DISCHARGE AND FOLLOW UP LABS THIS THURSDAY AT [facility]. PT EATING DINNER AND STATES HE IS "FEELING GREAT". FINISHING UP DIALYSIS AND WILL PLAN TO DISCHARGE. CALL LIGHT IN REACH. VITAL SIGNS STABLE. NO ACUTE CHANGES.
--- NOTE | 2020-09-12 19:21 | NUR ---
DISCHARGE: PT ALERT AND ORIENTED. NO ACUTE CHANGES SEE PREVIOUS NOTES. DISCHARGE INSTRUCTIONS REVIEWED. QUESTIONS ANSWERED. IV TAKEN OUT PER PROTOCOL. PT HAS FOLLOW UP APPOINTMENT WITH DR. CONTRERAS ON THURSDAY. WILL FOLLOW HOME DIALYSIS SCHEDULE AND FOLLOW UP WITH DR. GATICA NEEDED. PT WAITING FOR RIDE TO GET HERE. WILL BE TAKEN OUT VIA WHEELCHAIR. REPORTED OFF TO ONCOMING NURSE.
[2020-09-30] MEDS ORDERED: CLON.1 PO (15:40)
[2020-10-10] MEDS ORDERED: CLINGEL TOP (10:35)
[2020-10-10] MEDS ORDERED: OXYC10TA19 PO (10:36)
[2020-10-10] MEDS ORDERED: DICLOFENAC SOD100 G1 TOP (10:36)
== END 2020-09-12 19:43 | disposition home or self-care (01) | DRG 640 ==
LOC: ER 10:16 → PCU 12:57 → MEDS 12:57 → PCU 09-07 18:41
PROVIDERS: Emergency Medicine; Internal Medicine Nephrology; Pharmacist; Radiology Diagnostic Radiology; ADMIT Family Medicine
PROC: 5A1D70Z Performance of Urinary Filtration, Intermittent, Less than 6 Hours Per Day (ICD-10-PCS; 2020-09-05)
PROC: 5A1D70Z Performance of Urinary Filtration, Intermittent, Less than 6 Hours Per Day (ICD-10-PCS; 2020-09-06)
PROC: 5A1D70Z Performance of Urinary Filtration, Intermittent, Less than 6 Hours Per Day (ICD-10-PCS; 2020-09-07)
PROC: 5A1D70Z Performance of Urinary Filtration, Intermittent, Less than 6 Hours Per Day (ICD-10-PCS; 2020-09-08)
PROC: 5A1D70Z Performance of Urinary Filtration, Intermittent, Less than 6 Hours Per Day (ICD-10-PCS; 2020-09-09)
PROC: 0JH63XZ Insertion of Tunneled Vascular Access Device into Chest Subcutaneous Tissue and Fascia, Percutaneous Approach (ICD-10-PCS; principal; 2020-09-12)
PROC: 02HV33Z Insertion of Infusion Device into Superior Vena Cava, Percutaneous Approach (ICD-10-PCS; 2020-09-12)
PROC: B5181ZA Fluoroscopy of Superior Vena Cava using Low Osmolar Contrast, Guidance (ICD-10-PCS; 2020-09-12)
DX: E87.5 Hyperkalemia (principal); N18.6 End stage renal disease; J18.9 Pneumonia, unspecified organism; J96.00 Acute respiratory failure, unspecified whether with hypoxia or hypercapnia; I50.22 Chronic systolic (congestive) heart failure; R04.2 Hemoptysis; M31.31 Wegener's granulomatosis with renal involvement; I48.92 Unspecified atrial flutter; R78.81 Bacteremia; I13.2 Hypertensive heart and chronic kidney disease with heart failure and with stage 5 chronic kidney disease, or end stage renal disease; Z20.822 Contact with and (suspected) exposure to COVID-19; E87.2 Acidosis; E87.1 Hypo-osmolality and hyponatremia; K21.9 Gastro-esophageal reflux disease without esophagitis; D63.1 Anemia in chronic kidney disease; F41.9 Anxiety disorder, unspecified; E87.70 Fluid overload, unspecified; F32.9 Major depressive disorder, single episode, unspecified; E83.42 Hypomagnesemia; G89.29 Other chronic pain; R79.89 Other specified abnormal findings of blood chemistry; B95.7 Other staphylococcus as the cause of diseases classified elsewhere; F17.220 Nicotine dependence, chewing tobacco, uncomplicated; R07.89 Other chest pain; G47.00 Insomnia, unspecified; Z99.2 Dependence on renal dialysis; Z86.14 Personal history of Methicillin resistant Staphylococcus aureus infection; Z98.1 Arthrodesis status; Z98.890 Other specified postprocedural states; Z79.899 Other long term (current) drug therapy; Z91.14 Patient's other noncompliance with medication regimen; Z91.15 Patient's noncompliance with renal dialysis
CPT/HCPCS: 36415; 36581; 71045; 80053; 80069; 80202; 83605; 83735; 84132; 84145; 84484; 85014; 85018; 85025; 86140; 87040; 87077; 87186; 87340; 93005; 93010; 94644; 94760; 96374; 99152; 99153; 99285-25; A9270; C1750; C1769; J0282; J0610; J0696; J1170; J1644; J1815; J2250; J2405; J2997; J3010; J3370; J7040; J7050; J7060; U0004

== ENCOUNTER 2020-09-19 14:45 | Inpatient (IN) | payer MEDICARE, OTHER ==
[~2020-09-19] VITALS: Ht 190.5 cm; Wt 59.6 kg
[~2020-09-19 14:45] MED LIST changes: +ALUMINUM H320 MG/5 M PO; +Amiodarone HCl200 MG PO; +BUME2 PO; +LOKELMA PO; +LOSA50 PO; +MEGESTROL400 MG/11 PO; +METO25 PO; +SENN187 PO; +SEVEC800 PO; +VELTASSA PO
[2020-09-19 15:54] LABS: BASOPHILS ABSOLUTE AUTO 0.05 K/mm3 (0.00-0.23); BASOPHILS PERCENT AUTO 0 % (0-2); EOSINOPHILS PERCENT AUTO 2 % (0-6); Hematocrit 31.4 % (37.0-53.0); Hemoglobin 9.6 g/dL (13.5-17.5); IMMATURE GRAN ABSOLUTE AUTO 0.26 K/mm3 (0.00-0.10); IMMATURE GRAN PERCENT AUTO 2 % (0-1); LYMPHOCYTES ABSOLUTE AUTO 0.32 K/mm3 (0.84-5.20); LYMPHOCYTES PERCENT AUTO 3 % (21-46); MONOCYTES ABSOLUTE AUTO 0.43 K/mm3 (0.16-1.47); MONOCYTES PERCENT AUTO 3 % (4-13); Mean Corpuscular HGB 28.4 pg (26.0-34.0); Mean Corpuscular HGB Conc 30.6 g/dL (31.5-36.5); Mean Corpuscular Volume 93 fL (80-100); Mean Platelet Volume 11.4 fL (9.1-12.4); NEUTROPHILS ABSOLUTE AUTO 11.24 K/mm3 (1.96-9.15); NEUTROPHILS PERCENT AUTO 90 % (41-73); Platelet Count 131 K/mm3 (150-400); RDW Coefficient Variation 19.5 % (11.7-14.2); RDW Standard Deviation 65.6 fL (35.1-46.3); Red Blood Cell Count 3.38 M/mm3 (4.30-5.90)
[2020-09-19 16:04] LABS: Magnesium, Blood 2.1 mg/dL (1.6-2.4); Phosphorus, Blood 4.3 mg/dL (2.5-4.9)
[2020-09-19 16:11] LABS: Albumin/Globulin Ratio 0.6 (0.8-1.8); Bilirubin, Total 0.9 mg/dL (0.1-1.0); Bun/Creatinine Ratio 14.8 (12.0-20.0); Calcium, Blood 8.5 mg/dL (8.5-10.1); Creatinine, Blood 4.88 mg/dL (0.60-1.20); Globulin, Blood 3.4 g/dL (2.2-4.0); Potassium, Blood 4.7 mmol/L (3.5-5.5); Total Protein, Blood 5.4 g/dL (6.4-8.2)
[2020-09-19 16:23] LABS: Troponin I 1.01 ng/mL (0.000-0.040)
[2020-09-19] MEDS ORDERED: FURO80 PO (20:09)
[2020-09-19] MEDS ORDERED: Amiodarone HCl200 MG PO (20:09)
[2020-09-19] MEDS ORDERED: Catapres-Tts 21 EACH TOP (20:09)
[2020-09-19] MEDS ORDERED: MEGE40T PO (20:10)
[2020-09-19] MEDS ORDERED: METO25 PO (20:10)
[2020-09-19] MEDS ORDERED: Ativan1 MG PO (20:10)
[2020-09-19] MEDS ORDERED: NITR.4SL SL (20:11)
[2020-09-19] MEDS ORDERED: OXYC10TA19 PO (20:11)
[2020-09-19] MEDS ORDERED: SEVEC800 PO (20:12)
[2020-09-19] MEDS ORDERED: SENN187 PO (20:12)
[2020-09-19] MEDS ORDERED: PANT40 PO (20:12)
[2020-09-19 21:04] LABS: CPK Creatine Kinase 40 U/L (39-308)
--- NOTE | 2020-09-20 05:06 | NUR ---
SHIFT SUMMARY REPORT RECIEVED FROM ELINOR PSENCER, PATIENT TO ROOM VIA STRETCHER @6668. PATIENT IS ALERT AND ORIENTED X4. INDPENDENT IN THE ROOM. MEDICATED FOR CHRONIC PAIN PER EMAR. PATIENT STATES HE DOES NOT PRODUCE URINE. 02 SATS 97% ON RA, PATIENT INSISTING ON WEARING OXYGEN, PROVIDED 2L NC PRN. PATIENT STATES HIS BUTTOCKS IS SORE SINCE HE LOST WEIGHT, REDNESS, AND A SMALL SCAB NOTICED. PATIENT REQUESTING PAIN MEDICATIONS EVERY COUPLE HOURS, CALLED HOSPITALIST AND GOT HOME OXYCODONE ORDERED. PROVIDED PATIENT TEACHING ON PAIN RELIEFE MEASURES SUCH REPOSITIONING, COOL/HEAT APPLICATION, AND DISTRACTION. PATIENT NOW IN RECLINER. CARDIZEM gtt @5MG/HR HEART RATE IN THE 70s BUT OCCASIONALLY INCREASES TO 110s-120s. CALL LIGHT IN REACH.
--- NOTE | 2020-09-20 06:14 | NUR ---
PATIENT CURRENTLY WEARING CLONIDINE PATCH THAT HE PUT ON AT HOME ON 09/18 AM, NOTIFIED HOSPITALIST AND ORDERS THAT PATCH IS OK AND NEXT SCHEDULED ORDERED. UNLESS PATIENT BECOMES HYPOTENSIVE SYSTOLIC <100.
[2020-09-20 07:36] LABS: BASOPHILS ABSOLUTE AUTO 0.05 K/mm3 (0.00-0.23); BASOPHILS PERCENT AUTO 0 % (0-2); EOSINOPHILS ABSOLUTE AUTO 0.15 K/mm3 (0.00-0.68); EOSINOPHILS PERCENT AUTO 1 % (0-6); Hemoglobin 9.3 g/dL (13.5-17.5); IMMATURE GRAN PERCENT AUTO 2 % (0-1); LYMPHOCYTES PERCENT AUTO 2 % (21-46); MONOCYTES ABSOLUTE AUTO 0.48 K/mm3 (0.16-1.47); MONOCYTES PERCENT AUTO 4 % (4-13); Mean Corpuscular HGB Conc 32.1 g/dL (31.5-36.5); Mean Corpuscular Volume 90 fL (80-100); Mean Platelet Volume 12.9 fL (9.1-12.4); NEUTROPHILS ABSOLUTE AUTO 12.36 K/mm3 (1.96-9.15); NEUTROPHILS PERCENT AUTO 91 % (41-73); Platelet Count 150 K/mm3 (150-400); RDW Coefficient Variation 19.2 % (11.7-14.2); RDW Standard Deviation 63.1 fL (35.1-46.3); Red Blood Cell Count 3.21 M/mm3 (4.30-5.90); White Blood Cell Count 13.64 K/mm3 (4.00-11.30)
[2020-09-20 08:00] LABS: BAND PERCENT MAN 2 % (0-8); BASOPHILS ABSOLUTE MAN 0.27 K/mm3 (0.00-0.23); BASOPHILS PERCENT MAN 2 % (0-2); EOSINOPHILS ABSOLUTE MAN 0.13 K/mm3 (0.00-0.68); EOSINOPHILS PERCENT MAN 1 % (0-6); LYMPHOCYTES ABSOLUTE MAN 0.13 K/mm3 (0.84-5.20); LYMPHOCYTES PERCENT MAN 1 % (21-46); MONOCYTES ABSOLUTE MAN 0.27 K/mm3 (0.16-1.47); MONOCYTES PERCENT MAN 2 % (4-13); NEUTROPHILS ABSOLUTE MAN 12.82 K/mm3 (1.96-9.15); SEG NEUTROPHILS PERCENT MAN 92 % (41-73); TOTAL CELLS COUNTED 100
[2020-09-20 08:07] LABS: Albumin, Blood 2.2 g/dL (3.4-5.0); Albumin/Globulin Ratio 0.7 (0.8-1.8); Bilirubin, Total 0.9 mg/dL (0.1-1.0); Bun/Creatinine Ratio 16.2 (12.0-20.0); Calcium, Blood 8.1 mg/dL (8.5-10.1); Creatinine, Blood 5.44 mg/dL (0.60-1.20); Globulin, Blood 3.1 g/dL (2.2-4.0); Potassium, Blood 5.7 mmol/L (3.5-5.5); Total Protein, Blood 5.3 g/dL (6.4-8.2)
[2020-09-20 08:17] LABS: Troponin I 0.824 ng/mL (0.000-0.040)
--- NOTE | 2020-09-20 10:13 | NUR ---
Echocardiogram completed.
--- NOTE | 2020-09-20 11:26 | NUR ---
PHYSICIAN UPDATE PHYSICIAN NOTIFIED PT DOES NOT HAVE PHOSLO GEL CAPS ORDERED. ORDER PUT IN PER PHYSICIAN.
--- NOTE | 2020-09-20 18:54 | NUR ---
SHIFT SUMMARY PT ALERT AND ORIENTED X 4. HR STABLE. CARDIZEM GTT AT 5 MG/HR. CARDIOLOGY CONSULTED. BP STABLE. ECHO DONE, CARDIOLOGY AWARE OF RESULT.PT SBA TO CHAIR NEEDED. PT STATING HE NEEDS 02 ALTHOUGH OXYGEN SATURATION MAINTAINED ABOVE 92% ON RA. PT ON 2 L OF OXYGEN AT THIS TIME FOR DYSPNEA. PT TO DIALYSIS THIS AM AND THEN NUC MED STUDY. NO CP OR PRESSURE REPORTED. PT REPORTS PAIN IN LEGS. MEDICATED PER EMAR. WILL CONT TO MONITOR UNTIL REPORT GIVEN TO NIGHTSHIFT RN.
--- NOTE | 2020-09-20 20:03 | NUR ---
SHIFT SUMMARY PT ALERT AND ORIENTED X 4. HR STABLE. CARDIZEM GTT AT 5 MG/HR. CARDIOLOGY CONSULTED. BP STABLE. ECHO DONE. CARDIOLOGY AWARE OF RESULT. PT SBA TO CHAIR NEEDED. PT STATING HE NEEDS O2 ALTHOUGH OXYGEN SATURATION MAINTAINED ABOVE 92% ON RA. HE REQUESTS 2-3 L FOR COMFORT. PT TO DIALYSIS THIS AM, THEN NUC MED STUDY. NO CP OR PRESSURE. PT REPORTS PAIN IN LEGS. MEDICATED PER EMAR. REPORT GIVEN TO TJ DON.
[2020-09-21 05:09] LABS: Hematocrit 31.4 % (37.0-53.0); Hemoglobin 9.7 g/dL (13.5-17.5)
[2020-09-21 05:46] LABS: Albumin, Blood 2.1 g/dL (3.4-5.0); Anion Gap 9 mmol/L (6-16); Blood Urea Nitrogen 77 mg/dL (8-24); Bun/Creatinine Ratio 15.7 (12.0-20.0); CO2, Blood 28 mmol/L (21-32); Calcium, Blood 8.4 mg/dL (8.5-10.1); Chloride, Blood 97 mmol/L (98-108); Creatinine, Blood 4.92 mg/dL (0.60-1.20); Glomerular Filtration Rate 14 (60-); Glucose, Blood 97 mg/dL (70-99); Magnesium, Blood 2.1 mg/dL (1.6-2.4); Phosphorus, Blood 5.1 mg/dL (2.5-4.9); Potassium, Blood 4.6 mmol/L (3.5-5.5); Sodium, Blood 134 mmol/L (136-145)
--- NOTE | 2020-09-21 05:53 | NUR ---
SHIFT SUMMARY NO ACUTE CHANGES THIS SHIFT. PT A&OX4. SP02>92% ON 3L NC. TELEMETRY READS A FLUTTER, 90'S-100'S. CARDIZEM GTT AND CLONIDINE PATCH REMOVED AT START OF SHIFT PER ORDERS. LOPRESSER PO STARTED PER EMAR. PT HAS +4 EDEMA BILAT FEET. C/O OF LEG/FOOT PAIN, MEDICATED W/ FENTANYL PER EMAR X2. PT UP IN CHAIR 2ND PART OF SHIFT. DID NOT SLEEP MUCH. CURRENTLY UP IN CHAIR WATCHING TV. CALL LIGHT IN REACH. WILL GIVE REPORT TO ONCOMING NURSE.
--- NOTE | 2020-09-21 08:00 | NUR ---
pt sitting up in a chair, a/ox3, pleasant and cooperative with care, follows commands well, denies pain at this time, lungs are clear dim in bases, resp even and unlabored, no cough noted, hrr, tele in place running sr per monitor, see strip, 3-4+ edema noted, cap refill <3sec, vs stable, afebrile, iv site is clear and patent, btx4, abd round semi firm, skin c/w/d, peace, annie, perma cath to c.w. call light in reach.
--- NOTE | 2020-09-21 13:49 | NUR ---
09/21/20- per chart review with Dr. Roque, pt is not stable to d/c today but could potentially go tomorrow. Shared the floor nurses concerns about the pt not being able to care for himself on his own with Dr. Roque. -bettyw
[2020-09-21 17:54] LABS: International Normalized Ratio 1.2; Prothrombin Time Results 12.8 Sec (9.7-11.5)
--- NOTE | 2020-09-21 18:36 | NUR ---
pt sitting up in a chair all day, doing ok, does report all over pain, he was medicated for this. will be starting a heperin gtt. no further changes, call light in reach.
[2020-09-22 03:06] LABS: BASOPHILS ABSOLUTE AUTO 0.06 K/mm3 (0.00-0.23); BASOPHILS PERCENT AUTO 1 % (0-2); EOSINOPHILS ABSOLUTE AUTO 0.63 K/mm3 (0.00-0.68); EOSINOPHILS PERCENT AUTO 6 % (0-6); Hematocrit 28.4 % (37.0-53.0); IMMATURE GRAN ABSOLUTE AUTO 0.17 K/mm3 (0.00-0.10); IMMATURE GRAN PERCENT AUTO 2 % (0-1); LYMPHOCYTES ABSOLUTE AUTO 0.52 K/mm3 (0.84-5.20); LYMPHOCYTES PERCENT AUTO 5 % (21-46); MONOCYTES ABSOLUTE AUTO 0.55 K/mm3 (0.16-1.47); MONOCYTES PERCENT AUTO 5 % (4-13); Mean Corpuscular HGB 28.8 pg (26.0-34.0); Mean Corpuscular HGB Conc 31.7 g/dL (31.5-36.5); Mean Corpuscular Volume 91 fL (80-100); Mean Platelet Volume 12.1 fL (9.1-12.4); NEUTROPHILS ABSOLUTE AUTO 9.41 K/mm3 (1.96-9.15); NEUTROPHILS PERCENT AUTO 83 % (41-73); Platelet Count 135 K/mm3 (150-400); RDW Coefficient Variation 19.8 % (11.7-14.2); RDW Standard Deviation 65.4 fL (35.1-46.3); Red Blood Cell Count 3.13 M/mm3 (4.30-5.90); White Blood Cell Count 11.34 K/mm3 (4.00-11.30)
[2020-09-22 03:27] LABS: Albumin, Blood 1.9 g/dL (3.4-5.0); Albumin/Globulin Ratio 0.7 (0.8-1.8); Bilirubin, Total 0.7 mg/dL (0.1-1.0); Bun/Creatinine Ratio 13.4 (12.0-20.0); Calcium, Blood 8.3 mg/dL (8.5-10.1); Creatinine, Blood 4.55 mg/dL (0.60-1.20); Globulin, Blood 2.9 g/dL (2.2-4.0); Potassium, Blood 4.4 mmol/L (3.5-5.5); Total Protein, Blood 4.8 g/dL (6.4-8.2)
--- NOTE | 2020-09-22 05:59 | NUR ---
SHIFT SUMMARY NO ACUTE CHANGES THIS SHIFT. PT A&OX4. SP02>92% ON RA, PRN 3L NC. TELEMETRY READS A FLUTTER, 90'S-100'S. PT HAS +4 EDEMA BILAT FEET. C/O OF LEG/FOOT PAIN, MEDICATED PER EMAR. PT UP IN CHAIR 1ST PART OF SHIFT. SLEPT OFF AND ON T/O SHIFT. HEPARIN INFUSED PER EMAR. CALL LIGHT IN REACH. WILL GIVE REPORT TO ONCOMING NURSE.
--- NOTE | 2020-09-22 08:00 | NUR ---
pt in chair, a/ox3, pleasant and cooperative with care, follows commands well, asking for pain meds, reports hurting all over, lungs are clear t/o, resp even and unlabored, no cought noted, hrirr, tele in place running afib per montior in the low 100's, 3-4+edema noted to b/l emily, cap refill <3sec, vs stable, afebrile, iv sites are clear and patent, but getting tender, will change today if pt allows, hep gtt infusing as ordered, btx4, abd round soft a bit tender in lower quads, skin is dk, bottom is pink, and sore, he was given an donut pillow yesterday, hr reports much improved to take the pressure off, annie hand, will have dialysis today. call light in reach.
--- NOTE | 2020-09-22 21:00 | NUR ---
CARE ASSUMPTION PT A&OX4. SP02>92% ON RA. TELEMETRY READS AFLUTTER, HR 100'S. PT C/O OF 8/10 LEG/BACK/KIDNEY PAIN. SITTING IN CHAIR UPON CARE ASSUMPTION. HEPARIN INFUSING PER EMAR. BLUE AND WHITE CAPSULE PILL ON BEDSIDE TABLE IN PILL CUP UPON CARE ASSUMPTION. THIS RN DISPOSED OF PILL. AT APPROX 2030, THIS RN ENTERED PT'S ROOM TO GIVE EVENING MEDICATIONS PER EMAR, AND FOUND THAT PT WAS NOT IN ROOM. LOCATED PT STANDING BY ELEVATORS, HEPARIN STILL INFUSING,STATING HE WAS "BORED" AND WANTED TO GO FOR A WALK. SPOKE WITH PT ABOUT SAFETY AND JUST WALKING AROUND THE UNIT D/T IV. WALKED PT BACK TO ROOM. PT NOW RESTING IN CHAIR.
[2020-09-23 01:04] LABS: Hematocrit 30.8 % (37.0-53.0); Hemoglobin 9.4 g/dL (13.5-17.5)
[2020-09-23 01:20] LABS: Albumin, Blood 2.1 g/dL (3.4-5.0); Anion Gap 7 mmol/L (6-16); Blood Urea Nitrogen 54 mg/dL (8-24); CO2, Blood 30 mmol/L (21-32); Calcium, Blood 8.6 mg/dL (8.5-10.1); Chloride, Blood 102 mmol/L (98-108); Creatinine, Blood 4.15 mg/dL (0.60-1.20); Glomerular Filtration Rate 17 (60-); Glucose, Blood 126 mg/dL (70-99); Magnesium, Blood 1.8 mg/dL (1.6-2.4); Phosphorus, Blood 3.3 mg/dL (2.5-4.9); Potassium, Blood 4.2 mmol/L (3.5-5.5); Sodium, Blood 139 mmol/L (136-145)
--- NOTE | 2020-09-23 06:11 | NUR ---
SHIFT SUMMARY PT A&OX4. SP02>92% ON RA, THEN USED 2L NC PRN D/T FEELING SOB, THOUGH SATS MAINTAINED ABOVE 92%. TELMETRY READS A FLUTTER, HR 100'S-120'S. PT C/O OF PAIN T/O NIGHT, REQUESTING PAIN MEDS FREQUENTLY. PT VOIDED INDEPENDENTLY IN BATHROOM. PT UP IN CHAIR AND IN BED DURING SHIFT. SLEPT OFF AND ON. HEPARIN INFUSING PER EMAR. CALL LIT IN REACH. WILL GIVE REPORT TO ONCOMING NURSE.
[2020-09-23] MEDS ORDERED: METO100ER PO (14:25)
[2020-09-23] MEDS ORDERED: ENTRESTO 49 MG1 EAC2 PO (14:35)
[2020-09-23] MEDS ORDERED: ELIQUIS2.5 MG PO (14:35)
--- NOTE | 2020-09-23 15:36 | NUR ---
DISCHARGE PACKET REVIEWED WITH PT INCLUDING FOLLOW UP APPOINTMENTS, MEDICATION LIST, NEW PRESCRIPTIONS AND EDUCATION MATERIALS. IV REMOVED WNL. PT ASKING MULTIPLE TIMES FOR RX FOR OXYCODONE ON DISCHARGE, THIS RN INSTRUCTED HIM TO FOLLOW UP WITH HIS PCP FOR HIS CHRONIC PAIN MEDICATION. PT VERBALIZES UNDERSTANDING OF DISCHARGE INSTRUCTIONS AND HAS NO QUESTIONS AT THIS TIME. PT STATES HE WILL BEING GOING HOME VIA [place] AND VERBALIZES UNDERSTANDING NOT TO DRIVE D/T NARCOTIC PAIN MEDICATION. PT DISCHARGED HOME WILL ALL BELONINGS. NO FURTHER DISCHARGE NEEDS IDENTIFIED AT THIS TIME.
[2020-09-25 12:10] LABS: ANTIGLOMERULAR BM AB 7 units (0-20)
[2020-09-27 14:10] LABS: ATYPICAL PANCA <1:20 titer (Neg:<1:20); PERINUCLEAR (P-ANCA) <1:20 titer (Neg:<1:20)
[2020-09-30] MEDS ORDERED: CLON.1 PO (15:40)
[2020-10-10] MEDS ORDERED: CLINGEL TOP (10:35)
[2020-10-10] MEDS ORDERED: OXYC10TA19 PO (10:36)
[2020-10-10] MEDS ORDERED: DICLOFENAC SOD100 G1 TOP (10:36)
== END 2020-09-23 16:31 | disposition home or self-care (01) | DRG 280 ==
LOC: ER 14:45 → PCU 14:46 → ERHOLD 14:46 → PCU 22:22
PROVIDERS: Emergency Medicine; Internal Medicine; Internal Medicine Cardiovascular Disease; Internal Medicine Nephrology; ADMIT Internal Medicine
PROC: 5A1D70Z Performance of Urinary Filtration, Intermittent, Less than 6 Hours Per Day (ICD-10-PCS; principal; 2020-09-20)
PROC: 5A1D70Z Performance of Urinary Filtration, Intermittent, Less than 6 Hours Per Day (ICD-10-PCS; 2020-09-21)
PROC: 5A1D70Z Performance of Urinary Filtration, Intermittent, Less than 6 Hours Per Day (ICD-10-PCS; 2020-09-22)
PROC: 5A1D70Z Performance of Urinary Filtration, Intermittent, Less than 6 Hours Per Day (ICD-10-PCS; 2020-09-23)
DX: I48.91 Unspecified atrial fibrillation (principal); I50.43 Acute on chronic combined systolic (congestive) and diastolic (congestive) heart failure; I21.4 Non-ST elevation (NSTEMI) myocardial infarction; N18.6 End stage renal disease; I13.2 Hypertensive heart and chronic kidney disease with heart failure and with stage 5 chronic kidney disease, or end stage renal disease; M31.31 Wegener's granulomatosis with renal involvement; E87.1 Hypo-osmolality and hyponatremia; R64 Cachexia; Z68.1 Body mass index [BMI] 19.9 or less, adult; F17.220 Nicotine dependence, chewing tobacco, uncomplicated; K21.9 Gastro-esophageal reflux disease without esophagitis; E87.70 Fluid overload, unspecified; G89.29 Other chronic pain; F41.9 Anxiety disorder, unspecified; G47.00 Insomnia, unspecified; D64.9 Anemia, unspecified; L89.321 Pressure ulcer of left buttock, stage 1; L89.151 Pressure ulcer of sacral region, stage 1; E87.5 Hyperkalemia; F32.9 Major depressive disorder, single episode, unspecified; I43 Cardiomyopathy in diseases classified elsewhere; I42.0 Dilated cardiomyopathy; I42.2 Other hypertrophic cardiomyopathy; Z99.2 Dependence on renal dialysis; Z91.14 Patient's other noncompliance with medication regimen; Z86.14 Personal history of Methicillin resistant Staphylococcus aureus infection
CPT/HCPCS: 36415; 71045; 80053; 80069; 82550; 83516; 83735; 83880; 84100; 84484; 85014; 85018; 85025; 85610; 85730; 86256; 93005; 93010; 93306; 93356; 94760; 94762; 96365; 96366; 96372; 96375; 96376; 99285-25; A9270; A9538; G0378; J1170; J1644; J1650; J3010; J7040; P9046

== ENCOUNTER 2020-11-02 04:12 | Observation (INO) | payer MEDICARE, OTHER ==
[~2020-11-02] VITALS: Ht 182.9 cm; Wt 68.0 kg
[~2020-11-02 04:12] MED LIST changes: +CLINGEL TOP; +CLON.1 PO; +DICLOFENAC SOD100 G1 TOP; +ELIQUIS2.5 MG PO; +ENTRESTO 49 MG1 EAC2 PO; +MEGE40T PO; +METO100ER PO
[2020-11-02 05:05] LABS: BASOPHILS ABSOLUTE AUTO 0.06 K/mm3 (0.00-0.23); BASOPHILS PERCENT AUTO 1 % (0-2); EOSINOPHILS ABSOLUTE AUTO 0.44 K/mm3 (0.00-0.68); EOSINOPHILS PERCENT AUTO 4 % (0-6); Hematocrit 32.1 % (37.0-53.0); IMMATURE GRAN ABSOLUTE AUTO 0.04 K/mm3 (0.00-0.10); IMMATURE GRAN PERCENT AUTO 0 % (0-1); LYMPHOCYTES ABSOLUTE AUTO 1.29 K/mm3 (0.84-5.20); LYMPHOCYTES PERCENT AUTO 13 % (21-46); MONOCYTES ABSOLUTE AUTO 1.44 K/mm3 (0.16-1.47); MONOCYTES PERCENT AUTO 14 % (4-13); Mean Corpuscular HGB 29.3 pg (26.0-34.0); Mean Corpuscular HGB Conc 31.2 g/dL (31.5-36.5); Mean Corpuscular Volume 94 fL (80-100); Mean Platelet Volume 11.5 fL (9.1-12.4); NEUTROPHILS ABSOLUTE AUTO 6.78 K/mm3 (1.96-9.15); NEUTROPHILS PERCENT AUTO 68 % (41-73); Platelet Count 216 K/mm3 (150-400); RDW Coefficient Variation 21.5 % (11.7-14.2); RDW Standard Deviation 73.7 fL (35.1-46.3); Red Blood Cell Count 3.41 M/mm3 (4.30-5.90); White Blood Cell Count 10.05 K/mm3 (4.00-11.30)
[2020-11-02 05:23] LABS: Bun/Creatinine Ratio 9.9 (12.0-20.0); Calcium, Blood 8.7 mg/dL (8.5-10.1); Creatinine, Blood 4.76 mg/dL (0.60-1.20); Potassium, Blood 4.8 mmol/L (3.5-5.5); Troponin I 0.073 ng/mL (0.000-0.040)
[2020-11-02] MEDS ORDERED: METO50ER PO (10:06)
[2020-11-03 04:22] LABS: Hematocrit 32.2 % (37.0-53.0); Hemoglobin 9.9 g/dL (13.5-17.5)
[2020-11-03 04:44] LABS: Albumin, Blood 2.3 g/dL (3.4-5.0); Anion Gap 8 mmol/L (6-16); Blood Urea Nitrogen 44 mg/dL (8-24); CO2, Blood 28 mmol/L (21-32); Calcium, Blood 8.2 mg/dL (8.5-10.1); Chloride, Blood 98 mmol/L (98-108); Creatinine, Blood 4.89 mg/dL (0.60-1.20); Glomerular Filtration Rate 13 (60-); Glucose, Blood 96 mg/dL (70-99); Phosphorus, Blood 5.9 mg/dL (2.5-4.9); Potassium, Blood 4.9 mmol/L (3.5-5.5); Sodium, Blood 134 mmol/L (136-145)
[2020-11-03] MEDS ORDERED: DOXY100 PO (12:14)
[2020-11-07] MEDS ORDERED: Catapres-Tts 11 EACH TOP (05:08)
== END 2020-11-03 12:23 | disposition home or self-care (01) ==
LOC: ER 04:12 → PCU 04:13 → ERHOLD 04:13 → PCU 12:17
PROVIDERS: Internal Medicine Nephrology; Student in an Organized Health Care Education/Training Program; ADMIT Hospitalist
DX: I48.91 Unspecified atrial fibrillation (principal); I13.2 Hypertensive heart and chronic kidney disease with heart failure and with stage 5 chronic kidney disease, or end stage renal disease; I50.22 Chronic systolic (congestive) heart failure; N18.6 End stage renal disease; L73.2 Hidradenitis suppurativa; M31.30 Wegener's granulomatosis without renal involvement; N25.81 Secondary hyperparathyroidism of renal origin; K21.9 Gastro-esophageal reflux disease without esophagitis; E87.1 Hypo-osmolality and hyponatremia; D64.9 Anemia, unspecified; Z87.891 Personal history of nicotine dependence; Z99.2 Dependence on renal dialysis; Z79.01 Long term (current) use of anticoagulants
CPT/HCPCS: 36415; 51701; 51798; 71045; 80048; 80069; 83735; 84484; 85014; 85018; 85025; 93005; 93010; 96365; 96366; 96375; 96376; 99285-25; A9270; G0257; G0378; J0282; J0780; J1170; J2060; J2405; J2997; J7060

== ENCOUNTER 2020-11-07 01:12 | Emergency (ER) | payer MEDICARE, OTHER ==
[~2020-11-07] VITALS: Ht 182.9 cm; Wt 68.0 kg
[~2020-11-07 01:12] MED LIST changes: +DOXY100 PO
[2020-11-07 02:16] LABS: BASOPHILS ABSOLUTE AUTO 0.05 K/mm3 (0.00-0.23); BASOPHILS PERCENT AUTO 1 % (0-2); EOSINOPHILS ABSOLUTE AUTO 0.72 K/mm3 (0.00-0.68); EOSINOPHILS PERCENT AUTO 8 % (0-6); Hematocrit 30.7 % (37.0-53.0); Hemoglobin 9.6 g/dL (13.5-17.5); IMMATURE GRAN ABSOLUTE AUTO 0.06 K/mm3 (0.00-0.10); IMMATURE GRAN PERCENT AUTO 1 % (0-1); LYMPHOCYTES ABSOLUTE AUTO 1.34 K/mm3 (0.84-5.20); LYMPHOCYTES PERCENT AUTO 15 % (21-46); MONOCYTES ABSOLUTE AUTO 1.09 K/mm3 (0.16-1.47); MONOCYTES PERCENT AUTO 12 % (4-13); Mean Corpuscular HGB 28.8 pg (26.0-34.0); Mean Corpuscular HGB Conc 31.3 g/dL (31.5-36.5); Mean Corpuscular Volume 92 fL (80-100); Mean Platelet Volume 11.3 fL (9.1-12.4); NEUTROPHILS ABSOLUTE AUTO 5.87 K/mm3 (1.96-9.15); NEUTROPHILS PERCENT AUTO 64 % (41-73); Platelet Count 156 K/mm3 (150-400); RDW Standard Deviation 70.6 fL (35.1-46.3); Red Blood Cell Count 3.33 M/mm3 (4.30-5.90); White Blood Cell Count 9.13 K/mm3 (4.00-11.30)
[2020-11-07 02:38] LABS: Albumin, Blood 2.3 g/dL (3.4-5.0); Albumin/Globulin Ratio 0.6 (0.8-1.8); Bilirubin, Total 0.8 mg/dL (0.1-1.0); Bun/Creatinine Ratio 12.7 (12.0-20.0); Calcium, Blood 9.3 mg/dL (8.5-10.1); Creatinine, Blood 4.64 mg/dL (0.60-1.20); Globulin, Blood 3.9 g/dL (2.2-4.0); Potassium, Blood 4.4 mmol/L (3.5-5.5); Total Protein, Blood 6.2 g/dL (6.4-8.2); Troponin I 0.085 ng/mL (0.000-0.040)
[2020-11-07] MEDS ORDERED: Catapres0.2 MG PO (05:08)
== END 2020-11-07 05:20 | disposition home or self-care (01) ==
LOC: ER 01:12
PROVIDERS: Emergency Medicine
DX: R07.9 Chest pain, unspecified (principal); N18.6 End stage renal disease; I50.22 Chronic systolic (congestive) heart failure; Z99.2 Dependence on renal dialysis
CPT/HCPCS: 36415; 71046; 80053; 83690; 83880; 84484; 85025; 93005; 93010; 96374; 99285-25; A9270

== ENCOUNTER → 2020-11-13 | Outpatient (CLI) | payer MEDICARE, OTHER ==
[~2020-11-13] MED LIST changes: +TORSE20 PO
== END ==
LOC: LAB SHORT 15:08 → LAB 15:08
DX: D48.5 Neoplasm of uncertain behavior of skin (principal); Z91.09 Other allergy status, other than to drugs and biological substances
CPT/HCPCS: 88305; 88312

== ENCOUNTER 2020-11-30 15:08 | Observation (INO) | payer MEDICARE, OTHER ==
[~2020-11-30] VITALS: Ht 182.9 cm; Wt 68.9 kg
[~2020-11-30 15:08] MED LIST changes: -TORSE20 PO
[2020-11-30 16:31] LABS: BASOPHILS ABSOLUTE AUTO 0.06 K/mm3 (0.00-0.23); BASOPHILS PERCENT AUTO 1 % (0-2); EOSINOPHILS ABSOLUTE AUTO 0.29 K/mm3 (0.00-0.68); EOSINOPHILS PERCENT AUTO 4 % (0-6); Hematocrit 32.6 % (37.0-53.0); Hemoglobin 10.5 g/dL (13.5-17.5); IMMATURE GRAN ABSOLUTE AUTO 0.12 K/mm3 (0.00-0.10); IMMATURE GRAN PERCENT AUTO 2 % (0-1); LYMPHOCYTES ABSOLUTE AUTO 0.88 K/mm3 (0.84-5.20); LYMPHOCYTES PERCENT AUTO 13 % (21-46); MONOCYTES ABSOLUTE AUTO 0.95 K/mm3 (0.16-1.47); MONOCYTES PERCENT AUTO 14 % (4-13); Mean Corpuscular HGB 29.5 pg (26.0-34.0); Mean Corpuscular HGB Conc 32.2 g/dL (31.5-36.5); Mean Corpuscular Volume 92 fL (80-100); Mean Platelet Volume 11.6 fL (9.1-12.4); NEUTROPHILS ABSOLUTE AUTO 4.49 K/mm3 (1.96-9.15); NEUTROPHILS PERCENT AUTO 66 % (41-73); Platelet Count 189 K/mm3 (150-400); RDW Coefficient Variation 19.3 % (11.7-14.2); RDW Standard Deviation 64.4 fL (35.1-46.3); Red Blood Cell Count 3.56 M/mm3 (4.30-5.90); White Blood Cell Count 6.79 K/mm3 (4.00-11.30)
[2020-11-30 17:01] LABS: Bun/Creatinine Ratio 13.9 (12.0-20.0); Calcium, Blood 9.6 mg/dL (8.5-10.1); Creatinine, Blood 8.19 mg/dL (0.60-1.20); Phosphorus, Blood 8.2 mg/dL (2.5-4.9); Potassium, Blood 5.8 mmol/L (3.5-5.5)
[2020-11-30 18:36] LABS: International Normalized Ratio 1.32
[2020-11-30 19:55] LABS: SARS-Cov-2 (COVID-19) PCR, MMC NEGATIVE (NEGATIVE)
[2020-11-30] MEDS ORDERED: TORSE20 PO (19:58)
[2020-11-30] MEDS ORDERED: SENN187 PO (19:59)
--- NOTE | 2020-11-30 20:30 | NUR ---
transfer report from Maura RODRIGUEZ RN on 40 year old MAle with multiple medical problems including ESRD & clotted HD port resistant to cathflow. OBS PT will be in droplet contact for MRSA in Sputum & wounds recent. Reportedly has a area on buttocks? will assess. Await admission.
[2020-12-01 05:26] LABS: Hematocrit 31.1 % (37.0-53.0)
[2020-12-01 06:01] LABS: Magnesium, Blood 2.2 mg/dL (1.6-2.4)
[2020-12-01 06:04] LABS: Albumin, Blood 2.5 g/dL (3.4-5.0); Anion Gap 11 mmol/L (6-16); Blood Urea Nitrogen 119 mg/dL (8-24); Bun/Creatinine Ratio 13.3 (12.0-20.0); CO2, Blood 26 mmol/L (21-32); Calcium, Blood 9.7 mg/dL (8.5-10.1); Chloride, Blood 99 mmol/L (98-108); Creatinine, Blood 8.98 mg/dL (0.60-1.20); Glomerular Filtration Rate 7 (60-); Glucose, Blood 48 mg/dL (70-99); Phosphorus, Blood 8.7 mg/dL (2.5-4.9); Potassium, Blood 5.8 mmol/L (3.5-5.5); Sodium, Blood 136 mmol/L (136-145)
--- NOTE | 2020-12-01 06:47 | NUR ---
pushed 1 amp d50 to saline lock pt tolerated fair.
--- NOTE | 2020-12-01 06:48 | NUR ---
40 year old male admitted to have clotted HD cath unclotted or replaced so PT can resume full dialysis. Made PT NPO at midnight he demanded a few ice chips. He declined to have full skin assess & change out of street clothes. He has hx of remote MRSA in Sputum & abscess. PT requesting pain meds says he has been getting rx from DR Ogden who see's PT for ESRD but DR declined to write for narcotics when asked. PT had 1 oxycodone in ER took 325 mg tylenol at HS declined other 325 mg tab.PT had 3 critical lab values this 0600 AM& DR BELTRE & order to push 1 amp D50 now & recheck BG 1 hr after. Also contact Surgeon WILLIAMS to atrrange for HD cath replacement.
--- NOTE | 2020-12-01 07:39 | NUR ---
CBG ONE HOUR POST D5 IS 124. NO ACUTE CONCERNS AT THIS TIME.
--- NOTE | 2020-12-01 08:04 | NUR ---
CALL PLACED TO FOR DR. IGNACIO TO CONFIRM IF SHE CAN COMPLETE SURGERY TO REPLACE CATH PORT TODAY. AWAITING RETURN CALL.
--- NOTE | 2020-12-01 08:24 | NUR ---
PT WILL BE GOING TO SURGERY IN APPROX ONE HOUR. HELP AM MEDICATIONS DUE TO TIME OF SURGERY. BP 130/99 HR 111 WITH HX OF A-FLUTTER.
--- NOTE | 2020-12-01 10:50 | NUR ---
LATE ENTRY: PT WAS BLADDER SCANNED THIS AM AT 0930. PT UNABLE TO VOID PRIOR TO SCAN. PT BLADDER SCAN AMOUNT WAS 654. PT ABD DISTENDED. PT REPORTS PAIN "ALL OVER" DR. CAROLINA REPORTS HE IS UNABLE TO HAVE CATHETER PLACED BECAUSE "THEY CAN'T EVER GET ONE IN THAT IS WHY I NEED TO SEE A UROLOGIST." DR. IGNACIO WAS PRESENT AND SHE WAS NOTIFIED OF HIS REPORT AND BLADDER SCAN AMOUNT. PER DR. IGNACIO THEY WOULD ATTEMPT TO PLACE CATHETER DURING PROCEDURE.
--- NOTE | 2020-12-01 11:15 | NUR ---
12/01/20 1115 TORSTEN,MARYBEL PT NOTED TO HAVE PRE EXISTING PERMA CATH TO LEFT CHEST PRIOR TO PROCEDURE, DR IGNACIO REPLACED EXISTING PERMA CATH WITH PALINDROME 19CM, 1.6ML OF HEPARIN 5000 UNITS ADMINISTERED TO EACH LUMEN. X2 LUMENS.
--- NOTE | 2020-12-01 11:28 | NUR ---
DENIES PAIN AT SURGICAL SITE DENIES NAUSEA STATES HE DOES HAVE PAIN CHRONIC PAIN IN LEGS AND BEHIND STATES HE DOESNT NEED ANYTHING FOR THIS OFFERED POSTION CHANGE ETC.. ASKED FOR WARM BLANKETS . DONE REQUESTED
--- NOTE | 2020-12-01 19:30 | NUR ---
SHIFT SUMMARY: PT A/O X3 IND IN ROOM. PT HAD CATH PORT CHANGED TODAY AND HAD DIALYSIS SESSION. PT HAD REPORTS OF PAIN 10/30. PT MEDICATED WITH DILAUDID 1 MG IV AND PERCOCET 5 MG. PAIN "TOLERABLE" AT END OF SHIFT. PT IN MUCH BETTER MOOD AFTER GETTING PAIN MEDICATIONS. PT PORT WAS BLEEDING DURING SHIFT BUT BLEEDING STOPPED AND DRESSING RE-INFORCED BY SHENG IN DIALYSIS. NO ACUTE CHANGES THIS SHIFT.
--- NOTE | 2020-12-01 22:59 | NUR ---
PT ORDERED A PIZZA DESPITE THIS RN TELLING HIM THAT IS WAS AGANIST HIS PRESCRIBED RENAL DIET. HE ORDERED ANYWAY AGANIST MEDICAL ADVICE. SHORTLY AFTER EATING HE REQUESTED RENVELA. I EXPLAINED TO PT, THAT IT IS ONLY ORDERED THREE TIMES A DAY WITH MEALS. I SPOKE WITH DR. WEIR TO NOTIFY HER OF PT REQUEST FOR RENVELA AND THAT HE ATE PIZZA AGANIST PRESCRIBED DIET. RECEIVED ONE TIME DOSE OF RENVELA.
--- NOTE | 2020-12-02 04:48 | NUR ---
SHIFT SUMMARY NO ACUTE CHANGES TO REPORT THIS SHIFT, PT HAS RESTED MOST OF THE NIGHT. NEW PERMACATH PLACED YESTERDAY. PERMACATH SITE WNL. PT COMPLAINS OF PAIN IN PERMACATH SITE, MEDICATED PER EMAR. PT INDEPENDENT IN THE ROOM. BED IN LOWEST POSITION, CALL LIGHT WITHIN REACH.
[2020-12-02 05:29] LABS: Hemoglobin 9.8 g/dL (13.5-17.5); Mean Corpuscular HGB 29.6 pg (26.0-34.0); Mean Corpuscular HGB Conc 31.6 g/dL (31.5-36.5); Mean Corpuscular Volume 94 fL (80-100); Platelet Count 186 K/mm3 (150-400); RDW Coefficient Variation 19.8 % (11.7-14.2); RDW Standard Deviation 67.1 fL (35.1-46.3); Red Blood Cell Count 3.31 M/mm3 (4.30-5.90); White Blood Cell Count 7.52 K/mm3 (4.00-11.30)
[2020-12-02 05:56] LABS: Albumin, Blood 2.3 g/dL (3.4-5.0); Anion Gap 7 mmol/L (6-16); Blood Urea Nitrogen 79 mg/dL (8-24); Bun/Creatinine Ratio 11.4 (12.0-20.0); CO2, Blood 30 mmol/L (21-32); Calcium, Blood 8.9 mg/dL (8.5-10.1); Chloride, Blood 104 mmol/L (98-108); Creatinine, Blood 6.91 mg/dL (0.60-1.20); Glomerular Filtration Rate 9 (60-); Glucose, Blood 84 mg/dL (70-99); Magnesium, Blood 2.1 mg/dL (1.6-2.4); Phosphorus, Blood 6.7 mg/dL (2.5-4.9); Potassium, Blood 4.8 mmol/L (3.5-5.5); Sodium, Blood 141 mmol/L (136-145)
--- NOTE | 2020-12-02 15:51 | NUR ---
DISCHARGE NOTE: PT EDUCATED ON DISCHARGE PLAN AND MEDICATIONS. PT VU. IV ACCESS REMOVED. PT ESCORTED TO [facility] BY MAURICIO ALARCON. PT BELONGINGS WITH HIM.
== END 2020-12-02 16:00 | disposition home or self-care (01) ==
LOC: ER 15:08 → MEDS 15:09 → EDBEDREQ 20:25 → MEDS 20:37
PROVIDERS: Internal Medicine; Student in an Organized Health Care Education/Training Program; Surgery; ADMIT Internal Medicine
PROC: 0J2TXYZ Change Other Device in Trunk Subcutaneous Tissue and Fascia, External Approach (ICD-10-PCS; principal; 2020-12-01 09:45)
DX: T82.49XA Other complication of vascular dialysis catheter, initial encounter (principal); I13.2 Hypertensive heart and chronic kidney disease with heart failure and with stage 5 chronic kidney disease, or end stage renal disease; N18.6 End stage renal disease; I50.22 Chronic systolic (congestive) heart failure; E87.5 Hyperkalemia; E83.39 Other disorders of phosphorus metabolism; E87.1 Hypo-osmolality and hyponatremia; I48.91 Unspecified atrial fibrillation; I48.92 Unspecified atrial flutter; K21.9 Gastro-esophageal reflux disease without esophagitis; E87.70 Fluid overload, unspecified; D64.9 Anemia, unspecified; M31.30 Wegener's granulomatosis without renal involvement; Y71.1 Therapeutic (nonsurgical) and rehabilitative cardiovascular devices associated with adverse incidents; Z20.822 Contact with and (suspected) exposure to COVID-19; Z99.2 Dependence on renal dialysis; Z87.891 Personal history of nicotine dependence; Z79.01 Long term (current) use of anticoagulants; Z98.1 Arthrodesis status
CPT/HCPCS: 36415; 36593; 71046; 80048; 80069; 82947; 83735; 84100; 85014; 85018; 85025; 85027; 85610; 85730; 93005; 93010; 94762; 96365-59; 96372; 96375; 96375-59; 96376; 99285-25; A9270; C1750; G0378; J0610; J0690; J0881; J1170; J1200; J1644; J1815; J2250; J2405; J2704; J2997; J3010; J7030; J7799; U0004

== ENCOUNTER 2020-12-21 17:46 | Inpatient (IN) | payer MEDICARE, OTHER ==
[~2020-12-21] VITALS: Ht 180.3 cm; Wt 57.8 kg
[~2020-12-21 17:46] MED LIST changes: +TORSE20 PO
[2020-12-21 18:25] LABS: BASOPHILS ABSOLUTE AUTO 0.03 K/mm3 (0.00-0.23); BASOPHILS PERCENT AUTO 1 % (0-2); EOSINOPHILS ABSOLUTE AUTO 0.12 K/mm3 (0.00-0.68); EOSINOPHILS PERCENT AUTO 2 % (0-6); Hematocrit 35.6 % (37.0-53.0); Hemoglobin 11.2 g/dL (13.5-17.5); IMMATURE GRAN ABSOLUTE AUTO 0.05 K/mm3 (0.00-0.10); IMMATURE GRAN PERCENT AUTO 1 % (0-1); LYMPHOCYTES ABSOLUTE AUTO 0.93 K/mm3 (0.84-5.20); LYMPHOCYTES PERCENT AUTO 15 % (21-46); MONOCYTES ABSOLUTE AUTO 0.59 K/mm3 (0.16-1.47); MONOCYTES PERCENT AUTO 10 % (4-13); Mean Corpuscular HGB 28.1 pg (26.0-34.0); Mean Corpuscular HGB Conc 31.5 g/dL (31.5-36.5); Mean Corpuscular Volume 89 fL (80-100); Mean Platelet Volume 12.3 fL (9.1-12.4); NEUTROPHILS ABSOLUTE AUTO 4.46 K/mm3 (1.96-9.15); NEUTROPHILS PERCENT AUTO 72 % (41-73); NRBC ABSOLUTE 0.02 K/mm3 (0.00-0.02); NRBC Auto 0.3 /100 WBC (0.0-0.2); Platelet Count 184 K/mm3 (150-400); RDW Coefficient Variation 19.2 % (11.7-14.2); RDW Standard Deviation 61.9 fL (35.1-46.3); Red Blood Cell Count 3.99 M/mm3 (4.30-5.90); White Blood Cell Count 6.18 K/mm3 (4.00-11.30)
[2020-12-21 18:51] LABS: Albumin, Blood 2.2 g/dL (3.4-5.0); Albumin/Globulin Ratio 0.5 (0.8-1.8); Bilirubin, Total 1.3 mg/dL (0.1-1.0); Bun/Creatinine Ratio 6.5 (12.0-20.0); Calcium, Blood 8.7 mg/dL (8.5-10.1); Creatinine, Blood 4.44 mg/dL (0.60-1.20); Globulin, Blood 4.5 g/dL (2.2-4.0); Potassium, Blood 3.8 mmol/L (3.5-5.5); Total Protein, Blood 6.7 g/dL (6.4-8.2); Troponin I 0.064 ng/mL (0.000-0.040)
[2020-12-21 19:39] LABS: Magnesium, Blood 1.9 mg/dL (1.6-2.4); Phosphorus, Blood 2.8 mg/dL (2.5-4.9)
--- NOTE | 2020-12-22 01:07 | NUR ---
PATIENT ADMITTED TO ICU VIA ER WITH C/O ACUTE CHEST PAIN. PATIENT IS POST CHRONIC OUTPATIENT HEMODIALYSIS EARLIER TODAY. RN CONSULT PER DR GATICA IN ORDER TO OBTAIN CULTURE FROM L UPPER CHEST DIALYSIS CATHETER. SAMPLE OBTAINED ORDERED. PORT FLUSHED WITH NS AND THEN PACKED WITH HEPARIN 1:1000 PER LUMEN VOLUME. SAMPLE CARRIED TO LAB FOR PROCESSING.
--- NOTE | 2020-12-22 01:30 | NUR ---
PT ARRIVES TO ROOM ICU 07 FROM ED. TO ROOM AT 0051. PT VERY SLOW WITH PROCESS OF WANTING TO MOVE TO BED. FEELS IF HE IS BEING RUSHED. IRRITABLE. STATES ONLY THING HE WANTS IS PAIN MEDICATION. HE STATES THE CHEST PAIN IS 8/10. HE STATES THAT THIS IS THE SAME PAIN THAT HE FREQUENTLY COMES TO THE HOSPITAL EXPERIENCING. STATES THE DOCTORS HAVE NOT BEEN ABLE TO FIGURE OUT WHY HE HAS CHEST PAIN. STARTED DOBUTAMINE AT 5 MCG'S/KG AT THIS TIME. DID ADMINISTER 25 MCG'S FENTANYL PER PRN ORDER. PT MADE AWARE THAT HE HAS THE ABILITY TO RECEIVE FENTANYL Q 4 HOURS IF NEEDED. PT ALSO VERBALIZES THAT HE FEELS THAT HE WANTS TO GIVE UP ON TRYING. WILL ENSURE THAT PALIATIVE CARE IS INVOLVED. WILL REVIEW CHART AND PLAN OF CARE FOR THIS PT.
--- NOTE | 2020-12-22 02:42 | NUR ---
PT STATES THAT HE IS STILL HAVING PAIN AND FEELS THAT HE DID NOT GET A "FULL DOSE" OF PAIN MEDICATION. WILL DO PAIN MANAGEMENT TEACHING WITH THIS PT. BLOOD PRESSURES REMAIN WITH MAP > 60.
[2020-12-22 03:24] LABS: BASOPHILS ABSOLUTE AUTO 0.02 K/mm3 (0.00-0.23); BASOPHILS PERCENT AUTO 0 % (0-2); EOSINOPHILS PERCENT AUTO 2 % (0-6); Hematocrit 33.7 % (37.0-53.0); Hemoglobin 10.6 g/dL (13.5-17.5); IMMATURE GRAN ABSOLUTE AUTO 0.04 K/mm3 (0.00-0.10); IMMATURE GRAN PERCENT AUTO 1 % (0-1); LYMPHOCYTES ABSOLUTE AUTO 0.92 K/mm3 (0.84-5.20); LYMPHOCYTES PERCENT AUTO 16 % (21-46); MONOCYTES ABSOLUTE AUTO 0.67 K/mm3 (0.16-1.47); MONOCYTES PERCENT AUTO 11 % (4-13); Mean Corpuscular HGB 28.2 pg (26.0-34.0); Mean Corpuscular HGB Conc 31.5 g/dL (31.5-36.5); Mean Corpuscular Volume 90 fL (80-100); Mean Platelet Volume 11.8 fL (9.1-12.4); NEUTROPHILS PERCENT AUTO 71 % (41-73); Platelet Count 177 K/mm3 (150-400); RDW Coefficient Variation 19.1 % (11.7-14.2); RDW Standard Deviation 62.9 fL (35.1-46.3); Red Blood Cell Count 3.76 M/mm3 (4.30-5.90); White Blood Cell Count 5.95 K/mm3 (4.00-11.30)
[2020-12-22 03:42] LABS: Albumin/Globulin Ratio 0.5 (0.8-1.8); Bilirubin, Total 1.2 mg/dL (0.1-1.0); Bun/Creatinine Ratio 7.4 (12.0-20.0); Calcium, Blood 8.7 mg/dL (8.5-10.1); Creatinine, Blood 5.29 mg/dL (0.60-1.20); Globulin, Blood 4.3 g/dL (2.2-4.0); Magnesium, Blood 2.1 mg/dL (1.6-2.4); Phosphorus, Blood 4.5 mg/dL (2.5-4.9); Potassium, Blood 4.4 mmol/L (3.5-5.5); Total Protein, Blood 6.3 g/dL (6.4-8.2)
--- NOTE | 2020-12-22 06:03 | NUR ---
PT CALLS AT FOUR HOURS TO REQUEST MORE PAIN MEDICATION. STATES IT IS HIS "BUTT" THAT HURTS. STATES PAIN 8/10. PT SITTING UP AT SIDE OF BED. INFORMED PT THAT WHEN HE IS ABLE TO LAY IN BED, WOULD INSPECT THIS AREA. PT BELIEVES HE HAS SORES. PT STATES HE HAS A MEMORY FOAM BED AT HOME WHICH MAKES IT MORE COMFORTABLE THAN A HOSPITAL BED. HE AFFIRMS HE WILL LET RN KNOW WHEN HE IS BACK IN BED. DOUBUTAMINE CONTINUES AT 5 MCG'S. PT'S BLOOD PRESSURES REMAIN WITH SHORT PULSE PRESSURES. OF INTERESTING NOTE: PT HAS REMAINED IN FLUTTER FOR MOST OF THE NIGHT. AFTER THIS AM'S DOSE OF FENTANYL 25 MCG'S PT HAS A RATE SLOWDOWN FROM 110'S TO LOW RATE OF 54. THIS STAYED LOW FOR APPROX A MINUTE, AND THEN RETURNED TO 110'S. UNSURE IF PT HAD COUGHED AND CAUSED A POSSIBLE VAGAL EPISODE. WILL CONTINUE TO MONITOR PT, AND WILL REPORT OFF TO ONCOMING RN.
--- NOTE | 2020-12-22 14:16 | NUR ---
NEW IV ACCESS ELBA; POWER GLIDE. ECHOCARDIOGRAM COMPLETE. RETURNED FROM CTA; TOLERATED WELL. 02 2L/NC IN PLACE. PATIENT STATES "IT FEELS GOOD" HAVING O2/NC IN PLACE. WILL HAVE ULTRASOUND FOR DUPLEX STUDY OF LOWER EXT'S. GOOD RELIEF WITH FENTANYL 25MCG IVP Q4HRS FOR PAIN CONTROL. CONTINUE TO MONITOR AND TX PRN.
--- NOTE | 2020-12-22 14:49 | NUR ---
SINCE THE CHANGE OF SHIFT. PATIENT WAS ON DOBUTAMINE GTT 5ML/HR. CARDIOLOGY CONSULT, DR RODRIGUEZ SAW PT. NEW ORDERS TO TITRATE DOBUTAMINE GTT OFF AND MADE CHANGES TO CARDIAC MEDS. PATIENT MAIN COMPLAINTS HAVE BEEN CHEST PAIN, BACK AND BUTTOCK PAIN. MEDICATED WITH FENTANYL 25MCG IVP Q4 HRS AND DONUT PROVIDED FOR BUTTOCKS DISCOMFORT. PATIENT VERY EMACIATED WITH BONY PROMINENCES TO BACK AND BUTTOCKS AREA. RHYTHM A-FLUTTER, HR VARIES 80-120'S WITH ACTIVITY/ANXIETY. LUNGS WITH RALES T/O. RA WITH SATS >90% BUT 02 1L/NC PLACED FOR COMFORT. BILATERAL LE PITTING EDEMA 1-3+ L>R; TENDER TO TOUCH. ULTRASOUND BEING DONE TO CHECK FOR DVT'S. CTA LUNGS COMPLETE TO R/O PE. ECHOCARGIOGRAM COMPLETE. DR. REINOSO CONSULTED. DIALYSIS CATHETER TO LEFT CHEST WALL; NO DIALYSIS TODAY PER DR GATICA. INDEPENDENT IN BED AND REPOSITIONS SELF. GENERALIZED WEAKNESS/TIREDNESS NOTED. BP STABLE WITH MAP >60. CONTINUE WITH MIDODRINE TO SUSTAIN ADEQUATE BP. CONTINUE TO MONITOR CLOSELY, AND TX PRN.
--- NOTE | 2020-12-22 16:24 | NUR ---
STARTED OXYCODONE CR 10MG PO FOR PAIN CONTROL AND MONOCLONIAL ANTIBODY IV INFUSION PER DR REINOSO. CODE STATUS CHANGED DNR/DNI. ARM BAND PLACED TO RIGHT WRIST.
--- NOTE | 2020-12-22 17:42 | NUR ---
SHIFT SUMMARY PATIENT CONTINUES TO BE IN A-FLUTTER WITH A CONTROL RATE 90-100'S. BP STABILIZING WITH INCREASE MIDODRINE DOSES. LUNGS REMAIN WITH FINE RALES, DENIES SOB, RA WITH SATS >90%. PATIENT TAKES ON/OFF FOR HIS COMFORT. HAD 1 BOWEL MOVEMENT THIS MORNING. ANURIC. NO DIALYSIS TODAY. INDEPEDENT WITH SELF CARE. SITTING UP IN CHAIR THIS AFTERNOON, TOLERATING WELL. ADEQUATE APPETITE. COMPLETED MONOCLONIAL ANTIBODY INFUSION; TOLERATED WELL. PATIENT VERY WITHDRAWN AND FATIGUE. NO OTHER CHANGES NOTED. WILL REPORT OFF TO NOC SHIFT.
--- NOTE | 2020-12-22 20:51 | NUR ---
CARE ASSUMPTION PT SITTING IN THE CHAIR LEANED OVER IN PAIN. PT GIVEN PRN PAIN MEDICATION AND DISCUSSED PAIN MANAGEMENT PLAN FOR THIS SHIFT, PT AGREED WITH THE PLAN AND EXSPRESSED GRATITUDE FOR THE CARE. BPSOFT BUT MAP >70. HR AFLUTTER 80-90. O2 SATS >90% ON RM AIR.
[2020-12-23 03:32] LABS: Hematocrit 35.8 % (37.0-53.0); Hemoglobin 11.4 g/dL (13.5-17.5)
[2020-12-23 03:47] LABS: Albumin, Blood 1.9 g/dL (3.4-5.0); Anion Gap 10 mmol/L (6-16); Blood Urea Nitrogen 56 mg/dL (8-24); Bun/Creatinine Ratio 8.5 (12.0-20.0); CO2, Blood 30 mmol/L (21-32); Calcium, Blood 8.9 mg/dL (8.5-10.1); Chloride, Blood 94 mmol/L (98-108); Glomerular Filtration Rate 9 (60-); Glucose, Blood 108 mg/dL (70-99); Magnesium, Blood 2.3 mg/dL (1.6-2.4); Phosphorus, Blood 5.8 mg/dL (2.5-4.9); Sodium, Blood 134 mmol/L (136-145)
--- NOTE | 2020-12-23 06:04 | NUR ---
IN SERVICE COORDINATOR SUMMARY PT IS AXO X4 AND USES THE CALL LIGHT TO MAKE HIS NEEDS KNOWN. PT BP DROPPED THIS SHIFT W A MAP <[address] RODRIGUEZ CONTACTED AND LEVOPHED ORDERED W A 2MCG/MIN MAX. PT'S HR HAS BEEN A-FLUTTER IN THE 100'S THIS SHIFT. PEAK TEMP 96.1. O2 SATS >92% ON RM AIR. PT DENYING FEELING LIGHTHEADED OR DIZZY THIS SHIFT. PT REMAINED IN THE CHAIR AND AWAKE ALL SHIFT. PT DID NOT EAT HIS DINNER BUT DID EAT TWO YOGURTS THIS SHIFT. PT REQUESTING PAIN MEDICATION THROUGHOUT THE SHIFT WHICH WAS GIVEN PER EMAR UNTIL HIS BP DROPPED SO IT WAS EXPLAINED TO HIM THAT WE HAD TO WAIT UNTIL HIS BP WAS UP BEFORE HE COULD HAVE MORE PAIN MEDICATION. LEVOPHED RUNNING AT 2MCG/MIN AT THIS TIME. dR. RODRIGUEZ CONSULTED OUTSIDE THE PT'S RM THIS AM W NO FURTHER ORDERS.
[2020-12-23 06:13] LABS: Albumin, Blood 1.9 g/dL (3.4-5.0); Albumin/Globulin Ratio 0.5 (0.8-1.8); Bilirubin, Direct 0.4 mg/dL (0.0-0.3); Bilirubin, Indirect 0.3 mg/dL (0.1-0.7); Bilirubin, Total 0.7 mg/dL (0.1-1.0); Globulin, Blood 4.2 g/dL (2.2-4.0); Total Protein, Blood 6.1 g/dL (6.4-8.2)
--- NOTE | 2020-12-23 08:13 | NUR ---
PATIENT SLEEPING BUT AROUSABLE IN RECLINING CHAIR. AWAKES EASILY. WHEN ASKED IF HAVING ANY PAIN THIS MORNING, STATES "I DON'T KNOW RIGHT NOW". WARM WASH CLOTH GIVEN TO CLEAN FACE/HANDS. LUNGS WITH FINE RALES/RUB NOTED. DENIES NO SOB, SATS >90% RA. BILATERAL LOWER EXT'S EDEMA 2-3+ L>R. RIGHT PERIPHERAL IV SITE WITH LEVOPHED GTT INFUSING 2MCG/MIN; SKIN AREA TENDER TO TOUCH. REMOVED LEVEOPHED GTT INFUSION TO [facility] SITE; PATENT IV WITH GOOD BLOOD RETURN. REQUESTING FOR IV PAIN MEDS AND NOT WANTING ANY PO PAIN MEDS. BREAKFAST TRAY AT BEDSIDE. AM PO MEDS GIVEN PER EMAR, BUT REFUSED TO TAKE ELIQUIS AND BUMEX. PATIENT STATES "I DONT TAKE BUMEX ON DIALYSIS DAYS" AND "I DONT WANT TO TAKE ELIQUIS BECAUSE IT LOWERS MY BLOOD PRESSURE". I INFORMED PATIENT THAT I WILL HAVE DR REINOSO TALK WITH HIM TO GO OVER MEDICATION REGIMEN; PATIENT AGREED. CONTINUE TO MONITOR AND TX PRN.
--- NOTE | 2020-12-23 10:42 | NUR ---
INCREASE ALTERTNESS/AWAKE WATCHING TV. ATE BREAKFAST AT BEDSIDE. REMAINS ON LEVOPHED GTT AT 2MCG/MIN. STARTED INCREASE DOSE OF MIDODRINE 20MG PO. BP SOFT WITH MAP >60. CONTINUE TO MONITOR AND TX PRN.
--- NOTE | 2020-12-23 11:44 | NUR ---
PER DR REINOSO, SPOKE TO PATIENT AND PATIENT IN AGREEABLE TO TAKE ELIQUIS. MED GIVEN. REQUESTING FOR IV PAIN MEDS, NOT WANTING PO PAIN MEDS. WILL CONSULT WITH DR REINOSO REGARDING PAIN MEDS. C/O HEADACHE, LEG PAIN AND IV SITES. DENIES NO CHEST PAIN. TURNED OFF LEVOPHED GTT PER DR REINOSO TO RE-EVALUATE BP. CONTINUE TO MONITOR AND TX PRN.
--- NOTE | 2020-12-23 13:24 | NUR ---
PATIENT SLEEPING IN CHAIR, BUT AROUSABLE. STARTED SOLU CORTEF PER ORDERS. STATUS CHANGE PCU.
--- NOTE | 2020-12-23 16:09 | NUR ---
RESTING/SLEEPING IN CHAIR, BENT OVER ONTO PILLOWS ON LAP. AROUSABLE. WHEN ASKED IF HE'S COMFORTABLE, STATES "YES". OFFERED IF HE WOULD LIKE TO LAY IN BED FOR AWHILE DUE TO BEING ON BUTTOCKS AND LEGS BEING DEPENDENT DOWNWARD. PATIENT STATES "I PROBABLY SHOULD", BUT THEN FALLS BACK TO SLEEP WHILE DOING ASSESSMENT. DR GONZALES HERE AT BEDSIDE.
--- NOTE | 2020-12-23 17:07 | NUR ---
PATIENT WAS UP MOVING INDEPENDENTLY IN ROOM. SITTING/DANGLING AT BEDSIDE TO EAT DINNER. REQUESTED FOR ZOFRAN C/O NAUSEATED. NEW ORDER FROM DR REINOSO, MED GIVEN. REQUESTED FOR PAIN MED BUT DOESN'T WANT TO TAKE OXYCODONE WANTS FENTANYL IV. I ENCOURAGE HIM TO TAKE PO DUE TO THE LONG ACTING EFFECT. PATIENT STATES "NEVER MIND". AWAITING FOR NURSE TO CALL TO GIVE REPORT TO TRANSFER TO PCU 7. EATING DINNER, TOLERATING WELL.
--- NOTE | 2020-12-23 17:36 | NUR ---
REPORT GIVEN TO TJ DON. WILL TRANSFER TO U 7 VIA WHEELCHAIR.
--- NOTE | 2020-12-23 19:21 | NUR ---
NOTIFEID DR REINOSO THAT WE ARE UNABLE TO CUT EXTENDED RELEASES OXYCODONE AND DO NOT HAVE 5MG, NEW ORDER ENTERED.
--- NOTE | 2020-12-23 19:33 | NUR ---
TRANSFER NOTE PT TO ROOM AT APPROX 1750 VIA WHEELCHAIR. PT ORIENTED TO ROOM AND CALL LIGHT. PT A&O. PT REQUESTING IV PAIN MEDICATIONS, EDCUATED PT ON PAIN MANAGEMENT AND OFFERED PO OXYCODONE, PT AGREEABLE. THIS RN AGREES WITH PREVIOUS MANAGER HEMATOLOGY. VSS. NO OTHER ACUTE CHAGNES. REPORT GIVEN TO ONCOMING RN.
[2020-12-24 04:08] LABS: BASOPHILS ABSOLUTE AUTO 0.02 K/mm3 (0.00-0.23); BASOPHILS PERCENT AUTO 0 % (0-2); EOSINOPHILS ABSOLUTE AUTO 0.01 K/mm3 (0.00-0.68); EOSINOPHILS PERCENT AUTO 0 % (0-6); Hematocrit 34.6 % (37.0-53.0); Hemoglobin 10.9 g/dL (13.5-17.5); IMMATURE GRAN ABSOLUTE AUTO 0.08 K/mm3 (0.00-0.10); IMMATURE GRAN PERCENT AUTO 1 % (0-1); LYMPHOCYTES ABSOLUTE AUTO 0.68 K/mm3 (0.84-5.20); LYMPHOCYTES PERCENT AUTO 10 % (21-46); MONOCYTES ABSOLUTE AUTO 0.52 K/mm3 (0.16-1.47); MONOCYTES PERCENT AUTO 7 % (4-13); Mean Corpuscular HGB 28.3 pg (26.0-34.0); Mean Corpuscular HGB Conc 31.5 g/dL (31.5-36.5); Mean Corpuscular Volume 90 fL (80-100); Mean Platelet Volume 12.5 fL (9.1-12.4); NEUTROPHILS ABSOLUTE AUTO 5.75 K/mm3 (1.96-9.15); NEUTROPHILS PERCENT AUTO 82 % (41-73); Platelet Count 248 K/mm3 (150-400); RDW Coefficient Variation 19.3 % (11.7-14.2); RDW Standard Deviation 61.8 fL (35.1-46.3); Red Blood Cell Count 3.85 M/mm3 (4.30-5.90); White Blood Cell Count 7.06 K/mm3 (4.00-11.30)
[2020-12-24 04:33] LABS: Albumin, Blood 1.8 g/dL (3.4-5.0); Anion Gap 10 mmol/L (6-16); Blood Urea Nitrogen 67 mg/dL (8-24); Bun/Creatinine Ratio 8.8 (12.0-20.0); CO2, Blood 29 mmol/L (21-32); Calcium, Blood 8.9 mg/dL (8.5-10.1); Chloride, Blood 94 mmol/L (98-108); Creatinine, Blood 7.59 mg/dL (0.60-1.20); Glomerular Filtration Rate 8 (60-); Glucose, Blood 115 mg/dL (70-99); Magnesium, Blood 2.5 mg/dL (1.6-2.4); Phosphorus, Blood 7.9 mg/dL (2.5-4.9); Potassium, Blood 5.8 mmol/L (3.5-5.5); Sodium, Blood 133 mmol/L (136-145)
--- NOTE | 2020-12-24 06:22 | NUR ---
SHIFT SUMMARY PATIENT ALERT AND ORIENTED THIS SHIFT. VSS, SOFT BP's BUT MAINTAIN MAP GRATER THAN 65 ALL SHIFT. PT COOPERATIVE WITH CARE IF PAIN MEDICATION IS PROVIDED IN TIMELY MANNER. EDUCATED PATIENT ABOUT PAIN MANAGEMENT. SEE EMAR. PATIENT SLEPT THROUGHOUT THE MAJORITY OF SHIFT. NO OTHER SIGNIFICANT CHANGES.
--- NOTE | 2020-12-24 09:30 | NUR ---
PT TO DIALYSIS, WILL HOLD AM MEDS UNTIL HE RETURNS TO ROOM.
--- NOTE | 2020-12-24 18:19 | NUR ---
PT IN DIALYSIS TODAY FROM APROX [id number]. PER REPORT, PT TOLERATED WELL. BP TODAY HAS BEEN STABLE ON MIDODRINE ORDERED. PT C/O GENERALIZED PAIN TREATED PER EMAR. PT STATES HIS APPETITE HAS IMPROVED AND HAS BEEN REQUESTING EXTRA FOOD THROUGHOUT THE DAY. DR CRAWFORD AT BEDSIDE TO SEE PT THIS AFTERNOON, STATUS CHANGED TO MEDICAL. PT AMBULATORY AND INDEPENDENT IN THE ROOM, GAIT STEADY. NO FURTHER NEEDS IDENTIFIED THIS SHIFT, WILL CONTNUE TO MONITOR AND GIVE REPORT TO NOC SHIFT RN.
--- NOTE | 2020-12-25 06:43 | NUR ---
Shift Summary Pt has had difficulty falling and staying asleep. Pt has requested food multiple times. Pt c/o generalized pain treated per orders. VSS. No acute changes noted.
--- NOTE | 2020-12-25 10:20 | NUR ---
PT TRANSFER: ASSUMED CARE OF PT THIS AM AFTER RECEIVING REPORT FROM NOC SHIFT RN. PT A&Ox4, INDEPENDENT IN ROOM, MAINTAINING O2 SATS >90% ON RA, AFLUTTER ON MONITOR. PER REPORT, PT RECEIVED DIALYSIS YESTERDAY, AWAITING TO HEAR PLAN FOR NEXT DIALYSIS. PT REQUESTS AND MEDICATED WITH PAIN MEDICATION PRN. PT RECEIVES ROOM ASSIGNMENT IN MEDICAL DEPT. REPORT GIVEN TO TJ FISCHER. PT TRANSFERED W/OUT INCIDENT.
--- NOTE | 2020-12-25 19:06 | NUR ---
Shift Summary, The patient is a/ox4 TO PERSON,PLACE, TIME AND EVENT. The patient is pleasent and cooperative with care. He is independent in the room. The patient was here for cardiogenic shock r/t bp. His BP is 140/107 and he states he does not have any chest pain or SOB. The patient was transfered to the medical floor late this am from the PCU. The patient has requested extra food throughout the shift. He has taken a shower and brushed his teeth this afternoon. The patient has chronic BLE pain and it is controlled with meds per EMAR. He did not produce any urine this shift. The patient had no acute changes after comming to the medical floor. He is currently resting in his room.
--- NOTE | 2020-12-25 21:30 | NUR ---
CONSULT CALLED TO ON 12/25/20 AT 8999.
--- NOTE | 2020-12-26 05:06 | NUR ---
SHIFT SUMMARY: AOX3, INDEPENDENT IN THE ROOM. LS COURSE WITH PRODUCTIVE COUGH WITH YELLOW SPUTUM. HAS NOT SLEPT WELL HAS HE HAS BEEN COUGHING MOST OF THE NIGHT. PAIN GENERALIZED, RECEIVING PAIN MEDS EVERY 4 HOURS. BP WITH ELEVATION IN DIASTOLIC PRESSURE. NO CHEST PAIN. TACHYCARDIA R/T AFIB/AFLUTTER. TRACE EDEMA. CONSULT MADE TO DR. ORLANDO FOR PERMA CATH THROMBOSIS. FAIR APPETITE. WILL CONTINUE TO MONITOR. CALL LIGHT IN REACH.
[2020-12-26 05:07] LABS: BASOPHILS ABSOLUTE AUTO 0.03 K/mm3 (0.00-0.23); BASOPHILS PERCENT AUTO 0 % (0-2); EOSINOPHILS ABSOLUTE AUTO 0.02 K/mm3 (0.00-0.68); EOSINOPHILS PERCENT AUTO 0 % (0-6); Hematocrit 34.9 % (37.0-53.0); Hemoglobin 10.7 g/dL (13.5-17.5); IMMATURE GRAN ABSOLUTE AUTO 0.15 K/mm3 (0.00-0.10); IMMATURE GRAN PERCENT AUTO 1 % (0-1); LYMPHOCYTES ABSOLUTE AUTO 1.52 K/mm3 (0.84-5.20); LYMPHOCYTES PERCENT AUTO 13 % (21-46); MONOCYTES ABSOLUTE AUTO 1.35 K/mm3 (0.16-1.47); MONOCYTES PERCENT AUTO 12 % (4-13); Mean Corpuscular HGB 28.6 pg (26.0-34.0); Mean Corpuscular HGB Conc 30.7 g/dL (31.5-36.5); Mean Corpuscular Volume 93 fL (80-100); Mean Platelet Volume 12.2 fL (9.1-12.4); NEUTROPHILS ABSOLUTE AUTO 8.68 K/mm3 (1.96-9.15); NEUTROPHILS PERCENT AUTO 74 % (41-73); NRBC ABSOLUTE 0.02 K/mm3 (0.00-0.02); NRBC Auto 0.2 /100 WBC (0.0-0.2); Platelet Count 218 K/mm3 (150-400); RDW Coefficient Variation 20.7 % (11.7-14.2); RDW Standard Deviation 65.9 fL (35.1-46.3); Red Blood Cell Count 3.74 M/mm3 (4.30-5.90); White Blood Cell Count 11.75 K/mm3 (4.00-11.30)
--- NOTE | 2020-12-26 05:48 | NUR ---
CALLED MD RECACHRISTIANA AFLUTTER 133 HEART BEAT AND CONTINUED HYPERTENSION. RECOMMENDS MONITORING FOR 10 MORE MINUTES TO SEE IF IT CALMS DOWN IF NOT TO CALL BACK.
[2020-12-26 06:02] LABS: Magnesium, Blood 2.7 mg/dL (1.6-2.4)
[2020-12-26 06:10] LABS: Albumin, Blood 2.2 g/dL (3.4-5.0); Anion Gap 13 mmol/L (6-16); Blood Urea Nitrogen 79 mg/dL (8-24); Bun/Creatinine Ratio 9.6 (12.0-20.0); CO2, Blood 27 mmol/L (21-32); Calcium, Blood 9.3 mg/dL (8.5-10.1); Chloride, Blood 97 mmol/L (98-108); Creatinine, Blood 8.19 mg/dL (0.60-1.20); Glomerular Filtration Rate 7 (60-); Glucose, Blood 74 mg/dL (70-99); Phosphorus, Blood 6.2 mg/dL (2.5-4.9); Potassium, Blood 5.3 mmol/L (3.5-5.5); Sodium, Blood 137 mmol/L (136-145)
--- NOTE | 2020-12-26 08:13 | NUR ---
COMMUNICATION c DR. MULLIGAN Discussed NPO status with Dr. Mulligan. IR cannot come in and see patient today for thrombus in perma cath. T.O. for NPO tomorrow 12/27 @ 0001. Patient can have ice chips and meds. Per Dr. Mulligan, dialysis to see patient and attempt HD. Dialysis [facility] notified.
--- NOTE | 2020-12-26 19:42 | NUR ---
Shift Summary, The patient is A/OX4 to person, place, time and event. He has been pleasent and cooperative with care. He is independent in the room. The patient denies any chest pain or SOB and he is on RA. He has coarse lung sounds in the bases and edema BLE. The patient is being monitored by tele: see tele note. He had dialysis this afternoon (see note for reference). The patient has been c/o pain in his BLE and it has been controlled with pain medication per EMAR. The patient is currently sitting in his bed.
--- NOTE | 2020-12-26 21:07 | NUR ---
2014 - RECEIVED CALL FROM TELEMETRY PATIENT HAS SUSTAINED AFLUTTER OF 136 FOR [address] LANDA, NEW ORDER FOR IV METOPROLOL. NO CHEST PAIN, DIZZINESS OR SYMPTOMS. 2047- HR RATE VERIFIED WITH TELE, ADMINISTERED 5MG OF IV METOPROLOL OVER 5 MINUTES. HE DENIED ANY CHANGE OF SYMPTOMS. 2057- HR DOWN TO 90. WILL CONTINUE TO MONITOR DUE TO PM BLOOD PRESSURE MEDICATIONS.
--- NOTE | 2020-12-26 22:56 | NUR ---
RECEIVED CALL FROM TELE WHO REPORTS HR IS BACK UP TO 136. CALLED MD AND GOT NEW ORDERS FOR METOPROLOL. WILL ADMINISTER.
--- NOTE | 2020-12-27 00:47 | NUR ---
CURRENTLY THE PATIENT IS HOLDING HR OF AFLUTTER AT 96. HE IS RESTING IN THE BED. WILL CONTINUE TO MONITOR.
--- NOTE | 2020-12-27 05:24 | NUR ---
SHIFT SUMMARY: FINISHED DIALYSIS AT SHIFT CHANGE. VS SHOWED DIASTOLIC HTN, AFLUTTER IN THE 130'S. VERY WEAK, FATIQUED. ATE DINNER 90%. MD NOTIFIED. GAVE 5MG OF LOPRESSOR IV. HR DECREASED TO 90'S. ABOUT 2 HOURS LATER HR WAS BACK UP TO 135 AND SUSTAINING. 2.5MG LOPRESSOR IV AND 12.5 MG OF METOPROLOL GIVEN, HR DECREASED BACK DOWN TO 90'S, RETURNING TO 120'S THIS AM. ASYMPTOMATIC. PAIN ON AVERAGE THIS SHIFT HAS BEEN 9/10 GENERALIZED. NEEDS CHANGE IN PAIN MEDS TO HELP COVER. HOSPITALIST ENCOURAGE DAY PROVIDER TO ADDRESS. EDEMA +2 IN BLE. NPO AFTER MIDNIGHT EXCEPT FOR A FEW ICE CHIPS. NO SLEEP. OCCATIONAL DRY COUGH, LS DIMINISHED IN BASES. CALL LIGHT IN REACH.
[2020-12-27 05:26] LABS: Hematocrit 30.4 % (37.0-53.0); Hemoglobin 9.7 g/dL (13.5-17.5)
[2020-12-27 05:35] LABS: Anion Gap 8 mmol/L (6-16); Blood Urea Nitrogen 67 mg/dL (8-24); Bun/Creatinine Ratio 9.9 (12.0-20.0); CO2, Blood 29 mmol/L (21-32); Calcium, Blood 8.7 mg/dL (8.5-10.1); Chloride, Blood 100 mmol/L (98-108); Creatinine, Blood 6.78 mg/dL (0.60-1.20); Glomerular Filtration Rate 9 (60-); Glucose, Blood 85 mg/dL (70-99); Magnesium, Blood 2.5 mg/dL (1.6-2.4); Phosphorus, Blood 4.1 mg/dL (2.5-4.9); Sodium, Blood 137 mmol/L (136-145)
--- NOTE | 2020-12-27 06:22 | NUR ---
SPOKE WITH DR. RYAN REGARDING HR AND BP. MEDICATION CHANGES WERE MADE. DR. RYAN SAID HE IS NOT WORRIED ABOUT HIS TACHYCARDIA UNLESS IT DROPS HIS BLOOD PRESSURE. HE PERFERS THAT HE IS RATE CONTROLLED AT THIS THIS TIME. REQUEST TO MAKE SURE HE GETS THE FIRST DOSE OF HIS CARDIZEM THIS AM.
--- NOTE | 2020-12-27 15:33 | NUR ---
PER [facility]: NO PROCEDURE TODAY
--- NOTE | 2020-12-27 18:04 | NUR ---
SHIFT SUMMARY REPORTS PAIN UNCONTROLLED, MD NOTIFIED. PERMACATH PROCEDURE TO REMOVE THROMBUS DELAYED, POSSIBLE UNTIL THURSDAY, PER [facility]; DESTIN AND EN NOTIFIED.
[2020-12-28 05:24] LABS: Hemoglobin 9.6 g/dL (13.5-17.5)
[2020-12-28 07:04] LABS: Magnesium, Blood 2.4 mg/dL (1.6-2.4)
[2020-12-28 07:07] LABS: Anion Gap 11 mmol/L (6-16); Blood Urea Nitrogen 88 mg/dL (8-24); Bun/Creatinine Ratio 10.9 (12.0-20.0); CO2, Blood 26 mmol/L (21-32); Calcium, Blood 8.5 mg/dL (8.5-10.1); Chloride, Blood 99 mmol/L (98-108); Creatinine, Blood 8.04 mg/dL (0.60-1.20); Glomerular Filtration Rate 7 (60-); Glucose, Blood 130 mg/dL (70-99); Phosphorus, Blood 5.7 mg/dL (2.5-4.9); Potassium, Blood 6.2 mmol/L (3.5-5.5); Sodium, Blood 136 mmol/L (136-145)
[2020-12-28 07:52] LABS: BASOPHILS ABSOLUTE AUTO 0.02 K/mm3 (0.00-0.23); BASOPHILS PERCENT AUTO 0 % (0-2); EOSINOPHILS PERCENT AUTO 0 % (0-6); Hematocrit 30.2 % (37.0-53.0); Hemoglobin 9.6 g/dL (13.5-17.5); IMMATURE GRAN ABSOLUTE AUTO 0.13 K/mm3 (0.00-0.10); IMMATURE GRAN PERCENT AUTO 1 % (0-1); LYMPHOCYTES ABSOLUTE AUTO 0.43 K/mm3 (0.84-5.20); LYMPHOCYTES PERCENT AUTO 3 % (21-46); MONOCYTES ABSOLUTE AUTO 0.79 K/mm3 (0.16-1.47); MONOCYTES PERCENT AUTO 6 % (4-13); Mean Corpuscular HGB 29.1 pg (26.0-34.0); Mean Corpuscular HGB Conc 31.8 g/dL (31.5-36.5); Mean Corpuscular Volume 92 fL (80-100); Mean Platelet Volume 12.3 fL (9.1-12.4); NEUTROPHILS ABSOLUTE AUTO 12.24 K/mm3 (1.96-9.15); NEUTROPHILS PERCENT AUTO 90 % (41-73); Platelet Count 178 K/mm3 (150-400); RDW Coefficient Variation 20.9 % (11.7-14.2); RDW Standard Deviation 66.4 fL (35.1-46.3); White Blood Cell Count 13.61 K/mm3 (4.00-11.30)
--- NOTE | 2020-12-28 17:54 | NUR ---
SHIFT SUMMARY PT IS AOX4. PT MEDICATED FREQUENTLY FOR PAIN PER EMAR. PT DENIES N/V, SOB. PT SATS GREATER THAN 90% ON RA. PT HAD DIALYSIS IN THE ROOM TODAY. PT REMAINS IN BED AND IS UNMOTIVATED FOR TRANSFERS. STAFF AWAITNG URINE SAMPLE FOR UA. PLAN IS FOR THROMBUS REMOVAL ON THURSDAY. PT APPETITE IS GOOD. ENHANCED ISOLATION PRECAUTIONS MAINTAINED T/O SHIFT WITH NO VISITORS PER PROTOCOL. PT IS IN BED, CALL LIGHT IN REACH, LOW POSITION.
[2020-12-29 05:12] LABS: Hematocrit 29.8 % (37.0-53.0); Hemoglobin 9.5 g/dL (13.5-17.5)
[2020-12-29 05:23] LABS: Albumin, Blood 2.1 g/dL (3.4-5.0); Anion Gap 7 mmol/L (6-16); Blood Urea Nitrogen 60 mg/dL (8-24); Bun/Creatinine Ratio 9.7 (12.0-20.0); CO2, Blood 31 mmol/L (21-32); Calcium, Blood 8.8 mg/dL (8.5-10.1); Chloride, Blood 101 mmol/L (98-108); Creatinine, Blood 6.18 mg/dL (0.60-1.20); Glomerular Filtration Rate 10 (60-); Glucose, Blood 96 mg/dL (70-99); Magnesium, Blood 2.1 mg/dL (1.6-2.4); Phosphorus, Blood 4.8 mg/dL (2.5-4.9); Potassium, Blood 4.9 mmol/L (3.5-5.5); Sodium, Blood 139 mmol/L (136-145)
[2020-12-29 10:43] LABS: Source, Urine Clean Catch
[2020-12-29 10:52] LABS: Appearance, Urine Hazy (Clear); Bilirubin, Urine Neg (Neg); Blood, Urine 3+ (Neg); Color, Urine Yellow (P-Yellow); Glucose Qualitative, Urine Neg (Neg); Ketones, Urine Neg (Neg); Leukocyte Esterase, Urine 3+ (Neg); Nitrite, Urine Neg (Neg); Protein, Urine 3+ (Neg); Urobilinogen, Urine NORM (Normal)
[2020-12-29 11:06] LABS: Bacteria Mod /hpf; Squamous Epithelial Cells Few /hpf (Few)
--- NOTE | 2020-12-29 16:33 | NUR ---
SHIFT SUMMARY PT IS AOX4. PT CONTINUES TO BE ON RA WITH SATS GREATER THAN 90%. PT MEDICATED FREQUENTLY FOR PAIN PER EMAR. PT DENIES N/V, SOB. PT HAD A NOSEBLEED THIS SHIFT, SO DR. WEIR INSERTED A RHINO-ROCKET TO THE RIGHT NOSTRIL. PT FREQUENTLY C/O PAIN IN BLE AND BOTTOM DESPITE MEDICATION. ENHANCED ISOLATION PRECAUTIONS MAINTAINED T/O SHIFT. PT DID NOT HAVE DIALYSIS TODAY. PT APPETITE IS GOOD. PLAN IS FOR THROMBUS REMOVAL ON THURSDAY. PT IS IN BED, CALL LIGHT IN REACH, LOW POSITION.
[2020-12-30 04:41] LABS: Hematocrit 30.1 % (37.0-53.0); Hemoglobin 9.5 g/dL (13.5-17.5)
[2020-12-30 05:01] LABS: Albumin, Blood 2.2 g/dL (3.4-5.0); Anion Gap 9 mmol/L (6-16); Blood Urea Nitrogen 81 mg/dL (8-24); Bun/Creatinine Ratio 11.1 (12.0-20.0); CO2, Blood 27 mmol/L (21-32); Calcium, Blood 9.1 mg/dL (8.5-10.1); Chloride, Blood 100 mmol/L (98-108); Creatinine, Blood 7.29 mg/dL (0.60-1.20); Glomerular Filtration Rate 8 (60-); Glucose, Blood 105 mg/dL (70-99); Magnesium, Blood 2.4 mg/dL (1.6-2.4); Potassium, Blood 5.8 mmol/L (3.5-5.5); Sodium, Blood 136 mmol/L (136-145)
--- NOTE | 2020-12-30 05:10 | NUR ---
SHIFT SUMMARY RHINO ROCKET REMOVED BY . MINIMUM DRAINAGE NOTED SINCE REMOVAL. PT AAOX3. NO DISTRESS NOTED. CALL LIGHT WITHIN REACH. PT ABLE TO MAKE NEEDS KNOWN. MEDICATED PER MAR FOR PAIN THROUGHTOUT SHIFT.
--- NOTE | 2020-12-30 16:54 | NUR ---
SHIFT SUMMARY PT IS AOX4. PT MEDICATED FOR PAIN X3 THIS SHIFT. PT MEDICATED X1 FOR NAUSEA. PT DENIES SOB AND IS ON RA. PT HAD DIALYSIS TODAY. ENHANCED ISOLATION PRECUATIONS MAINTAINED T/O SHIFT. PT APPETITE IS GOOD. PT IS INDEPENDENT IN ROOM, THOUGH CONTINUES TO BE UNMOTIVATED TO TRANSFER FROM BED. PT HAS ANURIA. PT HAD NO VISITORS PER POLICY. PLAN IS FOR THROMBUS REMOVAL TOMORROW. PT IS IN ROOM, CALL LIGHT IN REACH, LOW POSITION.
[2020-12-31 04:46] LABS: Hematocrit 27.8 % (37.0-53.0); Hemoglobin 8.6 g/dL (13.5-17.5)
[2020-12-31 05:11] LABS: Anion Gap 8 mmol/L (6-16); Blood Urea Nitrogen 59 mg/dL (8-24); Bun/Creatinine Ratio 10.7 (12.0-20.0); CO2, Blood 27 mmol/L (21-32); Calcium, Blood 8.5 mg/dL (8.5-10.1); Chloride, Blood 102 mmol/L (98-108); Creatinine, Blood 5.52 mg/dL (0.60-1.20); Glomerular Filtration Rate 12 (60-); Glucose, Blood 89 mg/dL (70-99); Phosphorus, Blood 3.7 mg/dL (2.5-4.9); Potassium, Blood 5.5 mmol/L (3.5-5.5); Sodium, Blood 137 mmol/L (136-145)
--- NOTE | 2020-12-31 06:15 | NUR ---
END OF SHIFT SUMMARY: No acute events overnight. Pt complaining of constant pain of 7/10 even after pain medication. Offered alternative management like heat or ice, pt refuses. Pt medicated per eMAR. Independednt in room. AXOx4. Able to voice needs. NPO for possible perocedure today. Anuric d/t dialysis. Resting at this time. Call light within reach. Bed in lowest position.
--- NOTE | 2020-12-31 17:33 | NUR ---
a+o, call light in reach, saline locked on rm air, head raised since return from procedure, pt has remained in position surgery rn placed him, groin shows no s/sx of bleeding, states he remains in pain but does not want pain medication
--- NOTE | 2021-01-01 05:38 | NUR ---
END OF SHIFT SUMMARY: Pt still complaining of pain of 7-11/30 eveb after pain meds are given. He is still in controlled AFlutter, asymptomatic. Pt complains of SOB and asking for O2 supplement. Sats are 97% on RA. Put on 1L NC per pt request. Able to voice needs. Call light within reach.
[2021-01-01 07:43] LABS: Hematocrit 28.4 % (37.0-53.0); Hemoglobin 9.2 g/dL (13.5-17.5)
[2021-01-01 08:34] LABS: Magnesium, Blood 2.2 mg/dL (1.6-2.4)
[2021-01-01 09:08] LABS: Albumin, Blood 2.3 g/dL (3.4-5.0); Anion Gap 9 mmol/L (6-16); Blood Urea Nitrogen 81 mg/dL (8-24); Bun/Creatinine Ratio 11.5 (12.0-20.0); CO2, Blood 25 mmol/L (21-32); Calcium, Blood 9.4 mg/dL (8.5-10.1); Chloride, Blood 98 mmol/L (98-108); Creatinine, Blood 7.03 mg/dL (0.60-1.20); Glomerular Filtration Rate 9 (60-); Glucose, Blood 96 mg/dL (70-99); Phosphorus, Blood 5.1 mg/dL (2.5-4.9); Sodium, Blood 132 mmol/L (136-145)
[2021-01-01 09:10] LABS: Potassium, Blood 6.9 mmol/L (3.5-5.5)
--- NOTE | 2021-01-01 10:33 | NUR ---
NOTIFIED DR ABOUT CRITICAL VALUE 6.9 POTASSIUM
[2021-01-01] MEDS ORDERED: PACERONE100 M1 PO (12:08)
[2021-01-01] MEDS ORDERED: Bumetanide2 MG PO (12:08)
[2021-01-01] MEDS ORDERED: Amlodipine Bes2.5 MG PO (12:09)
[2021-01-01] MEDS ORDERED: ELIQUIS5 M2 PO (12:10)
[2021-01-01] MEDS ORDERED: LOSA25 PO (12:11)
[2021-01-01] MEDS ORDERED: Isosorbide Mono30 MG PO (12:12)
[2021-01-01] MEDS ORDERED: ACET325 PO (12:13)
[2021-01-01] MEDS ORDERED: DOCU100 PO (12:23)
[2021-01-01] MEDS ORDERED: ROXICODONE5 MG PO (12:26)
--- NOTE | 2021-01-01 14:36 | NUR ---
Attempted to meet with pt today; but he tells me he is leaving. He denies any need to talk about code status, and declined to fill out a POLST. Pt continues packing his duffel bag, and states he is busy and not interested in talking at this time.
--- NOTE | 2021-01-01 15:58 | NUR ---
DISCHARGE SUMMARY PATIENT WHEELED OUT BY XIAO MARTÍNEZ TO AWAITING TAXI. PATIENT HAD A CRITICAL VALUE OF 6.9 POTASSIUM THIS SHIFT, HAD DIALYSIS SOON AFTER CRITICAL VALUE WAS FOUND. DR NOTIFIED. NO OTHER ACUTE EVENTS THIS SHIFT. VITAL SIGNS REVIEWED
== END 2021-01-01 15:49 | disposition home or self-care (01) | DRG 228 ==
LOC: ER 17:46 → ICUW 23:23 → MEDS 23:23 → ICUE 23:23 → PCU 12-23 17:54 → MEDS 12-25 10:18
PROVIDERS: Emergency Medicine; Family Medicine; Internal Medicine; Internal Medicine Critical Care Medicine; Internal Medicine Nephrology; ADMIT Family Medicine
PROC: 3E043XZ Introduction of Vasopressor into Central Vein, Percutaneous Approach (ICD-10-PCS; principal; 2020-12-23)
PROC: 8E0ZXY6 Isolation (ICD-10-PCS; 2020-12-23)
PROC: XW033G6 Introduction of REGN-COV2 Monoclonal Antibody into Peripheral Vein, Percutaneous Approach, New Technology Group 6 (ICD-10-PCS; 2020-12-23)
PROC: 02C63ZZ Extirpation of Matter from Right Atrium, Percutaneous Approach (ICD-10-PCS; 2020-12-31)
DX: I48.3 Typical atrial flutter (principal); N18.6 End stage renal disease; U07.1 COVID-19; E43 Unspecified severe protein-calorie malnutrition; M31.31 Wegener's granulomatosis with renal involvement; I50.22 Chronic systolic (congestive) heart failure; R64 Cachexia; N25.81 Secondary hyperparathyroidism of renal origin; E87.1 Hypo-osmolality and hyponatremia; T82.868A Thrombosis due to vascular prosthetic devices, implants and grafts, initial encounter; Z23 Encounter for immunization; I48.19 Other persistent atrial fibrillation; I25.5 Ischemic cardiomyopathy; I48.0 Paroxysmal atrial fibrillation; G89.29 Other chronic pain; K21.9 Gastro-esophageal reflux disease without esophagitis; D63.1 Anemia in chronic kidney disease; J44.9 Chronic obstructive pulmonary disease, unspecified; M25.551 Pain in right hip; E87.5 Hyperkalemia; L72.3 Sebaceous cyst; I95.9 Hypotension, unspecified; F32.9 Major depressive disorder, single episode, unspecified; Z91.14 Patient's other noncompliance with medication regimen; Z68.20 Body mass index [BMI] 20.0-20.9, adult; Z98.1 Arthrodesis status; Z99.2 Dependence on renal dialysis; Z79.899 Other long term (current) drug therapy; Y83.1 Surgical operation with implant of artificial internal device as the cause of abnormal reaction of the patient, or of later complication, without mention of misadventure at the time of the procedure
CPT/HCPCS: 36005; 36415; 37187; 71045; 71260; 75827; 76937; 80053; 80069; 80076; 81001; 82533; 83605; 83735; 83880; 84100; 84132; 84145; 84484; 85014; 85018; 85025; 85379; 87040; 87077; 87086; 87186; 93005; 93010; 93308; 93321; 93970; 94762; 96374; 96376; 99152; 99153; 99285-25; A9270; C1751; C1769; C1887; C1894; J0360; J0881; J1160; J1250; J1644; J1720; J2405; J3010; J7030; J7040; J7050; J7060; J7512; Q0243; Q9967